=== PATIENT | female | born 1995 | race Caucasian/White ===

== ENCOUNTER 2022-02-20 11:59 | Emergency (ER) | payer OTHER, SELFPAY ==
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
--- NOTE | ~2022-02-20 | XR_ITS ---
EXAMINATION: XR LUMBOSACRAL SPINE CLINICAL INFORMATION: Pain COMPARISON: None TECHNIQUE: Three views of the lumbosacral spine. FINDINGS: The vertebral bodies and posterior elements are normal. The disc spaces are preserved and the vertebral alignment is normal. The paraspinal soft tissues are normal. XR/XR lumbar spine 2-3V IMPRESSION: No acute osseous changes to explain patient's pain symptoms.
[2022-02-20 12:06] VITALS: BP 168/89; PULSE 111; RESP 18; TEMP 36.6; O2SAT 98; BMI 51.1
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
[2022-02-20] MEDS: Acetaminophen 325 MG TABLET 975 MG PO (12:52)
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
[2022-02-20 14:38] VITALS: BP 155/98; PULSE 82; RESP 18; TEMP 36.6; O2SAT 99
== END 2022-02-20 15:07 | disposition home or self-care (01) ==
PROVIDERS: Emergency Provider Emergency Medicine; PCP Hospitalist
DX: S13.4XXA Sprain of ligaments of cervical spine, initial encounter (principal); M54.2 Cervicalgia; G44.309 Post-traumatic headache, unspecified, not intractable; M54.50 Low back pain, unspecified; V43.52XA Car driver injured in collision with other type car in traffic accident, initial encounter; Y93.9 Activity, unspecified; Y92.410 Unspecified street and highway as the place of occurrence of the external cause; Y99.9 Unspecified external cause status; Z79.899 Other long term (current) drug therapy
CPT/HCPCS: 70450; 72100; 72125; 99284

== ENCOUNTER 2022-03-14 13:30 | Inpatient (IN) | payer OTHER, SELFPAY ==
[2022-03-14 13:51] VITALS: BP 000/00; PULSE 0; RESP 16; TEMP -17.7; TEMP 0; O2SAT 0; BMI 48.6
--- NOTE | 2022-03-14 13:57 | ED.PSYCH ---
HPI - Psych General Chief Complaint: Psychiatric Symptoms Stated Complaint: SI/HI,REFUSES VITALS Time Seen by Provider: 03/14/22 13:57 Source: patient Mode of arrival: EMS Limitations: no limitations History of Present Illness HPI Narrative: Patient history of bipolar disorder anxiety ran out of her medication Latuda and Cymbalta which agree patient used that 1 week ago three-month supply now she does not have the medicine and she cannot get it through the insurance. Patient feels irritable agitated since she is suicidal in anger but she says she does not mean it Related Data Home Medications Medication Instructions Recorded Confirmed duloxetine 60 mg capsule,delayed 60 mg PO DAILY 12/14/21 release (Cymbalta) hydroxyzine pamoate 50 mg capsule 50 mg PO BEDTIME 12/14/21 lurasidone 60 mg tablet (Latuda) 60 mg PO DAILY 12/14/21 Previous Rx's Medication Instructions Recorded metformin 500 mg tablet 500 mg PO DAILY #90 tab 12/14/21 cyclobenzaprine 10 mg tablet 10 mg PO TID PRN 7 Days #21 tab 02/20/22 naproxen 500 mg tablet 500 mg PO BID PRN 10 Days #20 tab 02/20/22 Allergies Allergy/AdvReac Type Severity Reaction Status Date / Time No Known Allergies Allergy Verified 12/14/21 10:28 Review of Systems Review of Systems: Yes all other systems are reviewed and are negative PMFSH Past Medical History Medical History Anxiety Bipolar 1 disorder Degenerative disc disease, lumbar Degenerative disc disease, thoracic Depression Family History Family History Mother Diabetes Hypothyroid Social History Social History Household Members: Spouse and Children Household Members Other:: sister Housing: House Alcohol intake: never Patient Tobacco Use Status: Former Tobacco user Advance Directives: No Advance Directives Information Provided: No Guardian: No service: No Current occupational status: unemployed Sexual orientation: Straight/Heterosexual Gender identity: Female Physical Exam Vital Signs: Vital Signs: Last Vital Signs Temp 0 F L 03/14/22 13:51 Pulse 0 L 03/14/22 13:51 Resp 16 03/14/22 13:51 BP 000/00 L 03/14/22 13:51 Pulse Ox 0 L 03/14/22 13:51 BMI result Body Mass Index 48.6 Appearance: Alert. Oriented X3. No acute distress. Eyes: No pallor or icterus ENT: Pharynx normal. Oral Mucosa moist Neck: Normal inspection. Neck supple. CVS: Normal heart rate and rhythm. Pulses normal. Respiratory: No respiratory distress. Equal air entry bilateral, no wheezing/rales/rhonchi Abdomen: Soft and nontender. Bowel sounds are present, no mass palpable, no CVA tenderness Skin: Skin warm and dry. Normal skin color. Normal skin turgor. Extremities: No lower extremity edema. No calf tenderness Psych: Anxious denies any suicidal ideation/homicidal feeling judgment fair no hallucinations or delusions Neuro: Oriented X 3. No motor deficit. No sensory deficit.No cerebellar signs , cranial nerves II-XII intact MDM - Psych MDM Narrative Medical decision making narrative: Patient seen by crisis will be admitted to inpatient psych for bipolar disorder and anxiety Lab Data Attestation: I reviewed the patient's lab results. Labs: Lab Results 03/14/22 03/14/22 03/14/22 Range/Units 14:41 14:41 14:41 Urine Color YELLOW Urine Appearance CLEAR Urine pH 6.0 (5.0-8.0) Ur Specific [place] 1.020 (1.005-1.025) Urine Protein NEG (NEG-TRACE) MG/DL Urine Glucose (UA) NEG (NEG) MG/DL Urine Ketones NEG (NEG) MG/DL Urine Blood 1+ H (NEG) Urine Nitrite NEG (NEG) Ur Leukocyte Esterase NEG (NEG) Urine RBC 0-2 (0) /HPF Urine WBC 0-2 (0-4) /HPF Ur Squamous Epith Cells 1+ /LPF Urine Bacteria TRACE /LPF Urine Test NEGATIVE (NEGATIVE) Urine Opiates Screen (Not Detect) Urine Fentanyl Screen (Not Detect) Ur Barbiturates Screen (Not Detect) Ur Phencyclidine Scrn (Not Detect) Ur Amphetamines Screen (Not Detect) U Benzodiazepines Scrn (Not Detect) Urine Cocaine Screen (Not Detect) U Marijuana (THC) Screen (Not Detect) COVID-19 ([place]) Negative (Negative) COVID-19 Clin Com See Note 03/14/22 Range/Units 14:41 Urine Color Urine Appearance Urine pH (5.0-8.0) Ur Specific [place] (1.005-1.025) Urine Protein (NEG-TRACE) MG/DL Urine Glucose (UA) (NEG) MG/DL Urine Ketones (NEG) MG/DL Urine Blood (NEG) Urine Nitrite (NEG) Ur Leukocyte Esterase (NEG) Urine RBC (0) /HPF Urine WBC (0-4) /HPF Ur Squamous Epith Cells /LPF Urine Bacteria /LPF Urine Test (NEGATIVE) Urine Opiates Screen Not Detected (Not Detect) Urine Fentanyl Screen Not Detected (Not Detect) Ur Barbiturates Screen Not Detected (Not Detect) Ur Phencyclidine Scrn Not Detected (Not Detect) Ur Amphetamines Screen Not Detected (Not Detect) U Benzodiazepines Scrn Not Detected (Not Detect) Urine Cocaine Screen Not Detected (Not Detect) U Marijuana (THC) Screen POSITIVE H (Not Detect) COVID-19 ([place]) (Negative) COVID-19 Clin Com Discharge Plan Discharge Clinical Impression: Bipolar 1 disorder, Anxiety Patient Disposition: Still a Patient Prescriptions: No Action naproxen 500 mg tablet 500 mg PO BID PRN (Reason: pain) 10 Days Qty: 20 0RF cyclobenzaprine 10 mg tablet 10 mg PO TID PRN (Reason: muscle spasm) 7 Days Qty: 21 0RF Rx Instructions: side effect is drowsiness. Do not take at work or while driving. Latuda 60 mg tablet 60 mg PO DAILY 0RF Rx Instructions: must administer with food (at least 350 calories) duloxetine [Cymbalta] 60 mg capsule,delayed release(DR/EC) 60 mg PO DAILY 0RF hydroxyzine pamoate 50 mg capsule 50 mg PO BEDTIME 0RF Label Comments: 50 mg or 100 mg prn metformin 500 mg tablet 500 mg PO DAILY Qty: 90 0RF
[2022-03-14 14:57] LABS: Appearance Urine CLEAR; Color Urine YELLOW; Glucose Urine UA NEG (NEG); Leukocyte Esterase Urine NEG (NEG); Nitrite Urine NEG (NEG); UACC Culture Trigger NO; Urine Blood 1+ (NEG); Urine Ketones NEG (NEG); Urine Protein NEG (NEG-TRACE)
[2022-03-14 14:58] LABS: UPreg QC Valid YES; Urine Pregnancy NEGATIVE (NEGATIVE)
[2022-03-14 15:04] LABS: Amphetamine Screen Urine Not Detected (Not Detect); Barbiturates, Urine Not Detected (Not Detect); Benzodiazepines Screen Urine Not Detected (Not Detect); Cannabinoid Screen Urine POSITIVE (Not Detect); Cocaine Screen Urine Not Detected (Not Detect); Fentanyl, urine Not Detected (Not Detect); Opiate Screen Urine Not Detected (Not Detect); Phencyclidine Screen Urine Not Detected (Not Detect)
[2022-03-14 15:05] LABS: Bacteria Urine TRACE /LPF; Squamous Epithelial Cell Urine 1+ /LPF
[2022-03-14 15:06] LABS: RBC Urine 0-2 /HPF (0); WBC Urine 0-2 /HPF (0-4)
[2022-03-14 15:09] LABS: COVID-19 Test Negative (Negative)
[2022-03-14] MEDS: LORazepam 1 MG TABLET PO ×2 (19:39→23:49)
--- NOTE | 2022-03-14 19:44 | PC.NURSE ---
Pt alert and oriented x4. Pt noted to be refusing most of care. Pt educated by multiple RN's and case management about going to POD and needing to change clothes, after much reluctancy pt has agreed to global climate change analyst to POD. Pt noted to be hyperventilating and cry, noted to be very anxious. Pt received PO meds and tolerated well. Pt refusing vital signs to be done. No IV. Report given to ALYSSA Shaffer.
--- NOTE | 2022-03-14 20:45 | MHC.CARE ---
CARE Team has filed both oral and written 51A.
[2022-03-14 23:42] VITALS: BP 148/101; PULSE 91; RESP 18; TEMP 36.7; O2SAT 97
[2022-03-14] MEDS: Acetaminophen 325 MG TABLET 650 MG PO (23:49)
[2022-03-15] MEDS: hydrOXYzine HCL 50 MG TABLET PO ×3 (00:07→21:28)
--- NOTE | 2022-03-15 06:29 | PC.NURSE ---
Patient slept through the night, no distress observed/reported, patient was tearful until 007, responded well to Tylenol 650 mg at 2349, Ativan 1 mg po at 2349, and hydroxyzine 50 mg at 0007, patient was assessed by care team, disposition is section 12 inpatient bed search, patient reported she has been going through a lot, no being able refill her medication, VSS, behavior non concerning at this time, medication compliant, MAR updated, will continue to monitor.
--- NOTE | 2022-03-15 07:11 | PC.NURSE ---
patient appears to remain asleep at present respirations are even and unlabored patient appears in no distress
--- NOTE | 2022-03-15 09:29 | PC.NURSE ---
patient reported to t/w taking cymbalta and latuda in evening, reported to pharmacy and they are adjusting to clients regular times (evening) accordingly.
--- NOTE | 2022-03-15 09:52 | PC.NURSE ---
patient seems tearful after hearing about inpatient visit i just want my kid . asked client about t/w pursuing a prn medication. offered warm blanket also.
--- NOTE | 2022-03-15 10:05 | PC.NURSE ---
offered client prn medication again and she declined, continues crying.
--- NOTE | 2022-03-15 10:40 | PC.NURSE ---
clients Luisito calls and asked client consent to speak to person, patient declined so t/w told person i can neithjer confirm nor deny that patient is here-sorry i cant provide additional information .
--- NOTE | 2022-03-15 10:52 | PC.NURSE ---
client continued crying seemingly loudly, and let out a loud one second yell. client redirected about how her behavior effects other persons. client advised to take ordered medicine, will attempt to administer now.
[2022-03-15 16:00] LABS: MANUAL DIFF FLAG NO
[2022-03-15 16:10] LABS: Basophils Percent Auto 0.2 % (0-2); Eosinophils Absolute Auto 0.2 X10*3/uL (0.0-0.4); Eosinophils Percent Auto 1.5 % (0-4); Hemoglobin 13.1 g/dl (12.0-16.0); Imm Gran Abs Auto 0.04 X10*3/uL (0.00-0.03); Imm Gran Pct Auto 0.4 % (0.0-0.4); Lymphocytes Absolute Auto 3.1 X10*3/uL (1.2-4.9); Lymphocytes Percent Auto 30.2 % (20-40); Mean Corpuscular HGB Conc 31.2 g/dl (31.0-35.0); Mean Corpuscular Hemoglobin 24.7 pg (27.0-33.0); Mean Corpuscular Volume 79.1 fL (80.0-98.0); Mean Platelet Volume 8.8 fL (9.4-12.3); Monocytes Absolute Auto 0.6 X10*3/uL (0.1-1.2); Monocytes Percent Auto 6.1 % (2-11); Neutrophils Absolute Auto 6.2 x10*3/uL (2.0-8.3); Neutrophils Percent Auto 61.6 % (45-73); Platelet Count 424 X10*3/uL (160-400); Red Blood Count 5.31 X10*6/uL (4.20-5.50); Red Cell Distribution Width 15.9 % (11.0-16.0); White Blood Count 10.1 X10*3/uL (4.8-10.8)
[2022-03-15 16:20] LABS: Alanine Aminotransferase 38 U/L (0-31); Albumin Level 4.3 g/dL (3.5-5.0); Alkaline Phosphatase 71 U/L (39-117); Anion Gap 13 (12-20); Aspartate Amino Transferase 36 U/L (5-31); Bilirubin Total 0.6 mg/dL (0.0-1.0); Blood Urea Nitrogen 11 mg/dL (9-16); Calcium 9.7 mg/dL (8.4-10.2); Carbon Dioxide 24 mmol/L (22-29); Chloride 106 mmol/L (96-108); Creatinine Clr Calc Pharmacy 155.2; Estimated Glomerular Filt Rate > 60; Glucose Fasting 102 mg/dL (60-99); Potassium 4.3 mmol/L (3.3-5.1); Sodium 139 mmol/L (135-145); Total Protein 7.6 g/dL (6.5-8.0)
[2022-03-15] MEDS: hydrOXYzine HCL 25 MG TABLET PO (16:54)
[2022-03-15 17:06] VITALS: BP 178/106; PULSE 105; RESP 18; O2SAT 97
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
[2022-03-15] MEDS: Acetaminophen 325 MG TABLET 650 MG PO (19:38)
[2022-03-15] MEDS: Lurasidone HCl 20 MG TABLET 60 MG PO (19:39)
[2022-03-15 21:22] VITALS: BP 137/90; PULSE 97; TEMP 36.6; O2SAT 93
[2022-03-15] MEDS: Nicotine Polacrilex 2 MG GUM BUCCAL (21:28)
[2022-03-16] MEDS: hydrOXYzine HCL 25 MG TABLET PO (03:03)
[2022-03-16 08:35] VITALS: BP 133/86; PULSE 73; RESP 17; TEMP 36.3; O2SAT 100
[2022-03-16 09:34] LABS: Estimated Average Glucose 108 mg/dL; Hemoglobin A1c % 5.4 %
[2022-03-16 09:43] LABS: Alanine Aminotransferase 34 U/L (0-31); Alkaline Phosphatase 63 U/L (39-117); Anion Gap 12 (12-20); Aspartate Amino Transferase 27 U/L (5-31); Bilirubin Total 0.5 mg/dL (0.0-1.0); Blood Urea Nitrogen 15 mg/dL (9-16); Calcium 9.5 mg/dL (8.4-10.2); Carbon Dioxide 26 mmol/L (22-29); Chloride 105 mmol/L (96-108); Cholesterol 202 mg/dL; Creatinine Clr Calc Pharmacy 147.7; Estimated Glomerular Filt Rate > 60; Glucose Fasting 104 mg/dL (60-99); HDL Cholesterol 46 mg/dL; LDL Cholesterol Calculated 140 mg/dl; Potassium 4.4 mmol/L (3.3-5.1); Sodium 139 mmol/L (135-145); Total Protein 7.2 g/dL (6.5-8.0); Triglycerides 83 mg/dL
[2022-03-16 10:02] LABS: Thyroid Stimulating Hormone 3.49 uIU/mL (0.32-4.0)
[2022-03-16] MEDS: Nicotine 21 MG PATCH.TD24 TRANSDERMA (11:56)
[2022-03-16] MEDS: hydrOXYzine HCL 50 MG TABLET PO (14:13)
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
[2022-03-16] MEDS: Nicotine Polacrilex 2 MG GUM BUCCAL ×2 (16:44→18:45)
[2022-03-16] MEDS: DULoxetine HCl 30 MG CAPSULE.DR 90 MG PO (17:59)
[2022-03-16] MEDS: Lurasidone HCl 20 MG TABLET 60 MG PO (17:59)
[2022-03-16 20:50] VITALS: BP 160/93; PULSE 103; RESP 20; TEMP 36.6; O2SAT 98
[2022-03-16] MEDS: hydrOXYzine HCL 50 MG TABLET 100 MG PO (20:52)
[2022-03-16] MEDS: Fluticasone Propionate 100 MCG BLST.W.DEV 1 PUFF INHALE (21:00)
[2022-03-16] MEDS: cloNIDine HCL 0.1 MG TABLET PO (21:07)
[2022-03-16] MEDS: Loperamide HCl 2 MG CAPSULE PO (21:20)
[2022-03-16 22:48] VITALS: BP 147/93; PULSE 97
[2022-03-17] VITALS: BP 174/92; BP 178/108; PULSE 108; PULSE 99; O2SAT 99
[2022-03-17] MEDS: LORazepam 1 MG TABLET 2 MG PO (00:39)
[2022-03-17] MEDS: amLODIPine Besylate 5 MG TABLET PO ×2 (00:39→08:14)
--- NOTE | 2022-03-17 00:40 | PC.NURSE ---
elevated BP-Dr. Adams notified of 0000 bp readings 174/92, 178/108. see VS sheet. Hx of being on labetalol 100mg po bid during last . Amlodipine 5mg, ativan 2mg given.
[2022-03-17 07:00] VITALS: BMI 47.7
[2022-03-17 07:12] VITALS: BP 125/72; PULSE 112
[2022-03-17] MEDS: Fluticasone Propionate 100 MCG BLST.W.DEV 1 PUFF INHALE ×2 (08:14→20:44)
[2022-03-17] MEDS: Nicotine 21 MG PATCH.TD24 TRANSDERMA (08:15)
[2022-03-17 09:33] VITALS: BP 139/87; PULSE 96; RESP 20; TEMP 36.3; O2SAT 98
[2022-03-17] MEDS: Nicotine Polacrilex 2 MG GUM BUCCAL ×3 (09:42→19:14)
--- NOTE | 2022-03-17 14:01 | P.PNPSI_ITS ---
Subjective Subjective Date of Service: 03/17/22 Reason For Visit: mood disorder Interim History: pt states, i woke up this morning and felt like a million bucks. asking for discharge. pt complaining about treatment here, saying it is not helpful, not what she needs. asking to be discharged [facility]. stating others monopolize group time to her detriment. states she needs her own therapist, etc. MD states he will check in with SW re discharge but could not promise anything in particular. states if she is going to be stuck here she is just going to stop taking her medications. MD replies that will not help her get discharged more quickly. states this place is making her suicidal. MD replies that neither will that get her discharged more quickly. MD instructs pt to use the time to practice distress tolerance techniques, a suggestion about which pt is not pleased, devaluing any help she might get from treaters and groups here. per staff, acive, appropriate in groups. BPs volatile. did not sleep after 2 mg ativan. in milieu and interactive. Mental Status Exam Mental Status Exam Narrative: obese, adequately dressed and groomed in street clothes. heavy and ornate make- up. good eye contact. cooperative. no PMA/PMR. speech nml in rate, amount, loudness, tone, latency. thoughts linear and logical without evidence of delusions or paranoia. affect constricted, normo-intense, non-labile. mood i woke up this morning and felt like a million bucks juxtaposed with this place is making me want to kill myself. no HI/AVH expressed. Diagnostics Vital Signs (24Hr): Vital Signs - 24 hr 03/16/22 20:50 03/16/22 22:48 03/17/22 00:00 Temperature 97.8 F Pulse Rate 103 H 97 108 H Respiratory Rate 20 Blood Pressure 160/93 H 147/93 H 178/108 H Pulse Oximetry 98 99 03/17/22 07:12 03/17/22 09:33 Temperature 97.3 F Pulse Rate 112 H 96 Respiratory Rate 20 Blood Pressure 125/72 139/87 Pulse Oximetry 98 BMI result Body Mass Index 48.6 Labs Results: 03/15/22 15:52 03/16/22 08:40 Labs: Laboratory Results - last 48 hr 03/15/22 03/15/22 03/16/22 15:52 15:52 08:39 WBC 10.1 RBC 5.31 Hgb 13.1 Hct 42.0 MCV 79.1 L MCH 24.7 L MCHC 31.2 RDW 15.9 Plt Count 424 H MPV 8.8 L Immature Gran % (Auto) 0.4 Neut % (Auto) 61.6 Lymph % (Auto) 30.2 [place] % (Auto) 6.1 Eos % (Auto) 1.5 Baso % (Auto) 0.2 Lymph # (Auto) 3.1 [place] # (Auto) 0.6 Eos # (Auto) 0.2 Baso # (Auto) 0.0 Abs Immat Gran (auto) 0.04 H Absolute Neuts (auto) 6.2 Absolute Nucleated RBC 0.000 Nucleated RBC % (auto) 0.0 Sodium 139 Potassium 4.3 Chloride 106 Carbon Dioxide 24 Anion Gap 13 BUN 11 Creatinine 0.79 Estim Creat Clear Calc 155.2 Estimated GFR > 60 Fasting Glucose 102 H Estimat Average Glucose 108 Hemoglobin A1c % 5.4 Calcium 9.7 Total Bilirubin 0.6 AST 36 H ALT 38 H Alkaline Phosphatase 71 Total Protein 7.6 Albumin 4.3 Triglycerides Cholesterol LDL Cholesterol, Calc HDL Cholesterol TSH 03/16/22 08:40 WBC RBC Hgb Hct MCV MCH MCHC RDW Plt Count MPV Immature Gran % (Auto) Neut % (Auto) Lymph % (Auto) [place] % (Auto) Eos % (Auto) Baso % (Auto) Lymph # (Auto) [place] # (Auto) Eos # (Auto) Baso # (Auto) Abs Immat Gran (auto) Absolute Neuts (auto) Absolute Nucleated RBC Nucleated RBC % (auto) Sodium 139 Potassium 4.4 Chloride 105 Carbon Dioxide 26 Anion Gap 12 BUN 15 Creatinine 0.83 Estim Creat Clear Calc 147.7 Estimated GFR > 60 Fasting Glucose 104 H Estimat Average Glucose Hemoglobin A1c % Calcium 9.5 Total Bilirubin 0.5 AST 27 ALT 34 H Alkaline Phosphatase 63 Total Protein 7.2 Albumin 4.0 Triglycerides 83 Cholesterol 202 LDL Cholesterol, Calc 140 HDL Cholesterol 46 TSH 3.49 Medications Medications Current Medications Acetaminophen (Acetaminophen 325 Mg Tablet) 650 mg PO Q6H PRN PRN Reason: Headache/Pain Mild Scale (1-3) Last Admin: 03/15/22 19:38 Dose: 650 mg Documented by: Al Hydroxide/Mg Hydroxide (Magnesium Hydrox/Alum Hydrox 30 Ml Oral.Susp) 30 ml PO Q6H PRN PRN Reason: Heartburn/Nausea Albuterol Sulfate (Albuterol Sulfate 90 Mcg 8 Gm Inhaler) 2 puff INHALE Q4H PRN PRN Reason: Shortness of Breath Amlodipine Besylate (Amlodipine Besylate 10 Mg Tablet) 10 mg PO DAILY [facility]; Protocol Clonidine HCl (Clonidine Hcl 0.1 Mg Tablet) 0.1 mg PO Q4H PRN; Protocol PRN Reason: Hypertension Last Admin: 03/16/22 21:07 Dose: 0.1 mg Documented by: Duloxetine HCl (Duloxetine Hcl 30 Mg Capsule.Dr) 90 mg PO DAILY@1700 [facility] Last Admin: 03/16/22 17:59 Dose: 90 mg Documented by: Fluticasone Propionate (Fluticasone Propionate 100 Mcg Blst.W.Dev) 1 puff INHALE RBID [facility] Last Admin: 03/17/22 08:14 Dose: 1 puff Documented by: Hydroxyzine HCl (Hydroxyzine Hcl 25 Mg Tablet) 25 mg PO BEDTIME PRN PRN Reason: Anxiety Last Admin: 03/16/22 03:03 Dose: 25 mg Documented by: Hydroxyzine HCl (Hydroxyzine Hcl 50 Mg Tablet) 100 mg PO BEDTIME [facility] Last Admin: 03/16/22 20:52 Dose: 100 mg Documented by: Hydroxyzine HCl (Hydroxyzine Hcl 50 Mg Tablet) 50 mg PO Q6H PRN PRN Reason: Anxiety Last Admin: 03/16/22 14:13 Dose: 50 mg Documented by: Loperamide HCl (Loperamide Hcl 2 Mg Capsule) 2 mg PO Q4H PRN PRN Reason: Diarrhea Last Admin: 03/16/22 21:20 Dose: 2 mg Documented by: Lurasidone HCl (Lurasidone Hcl 20 Mg Tablet) 60 mg PO DAILY@1700 [facility] Last Admin: 03/16/22 17:59 Dose: 60 mg Documented by: Magnesium Hydroxide (Milk Of Magnesia 30 Ml Oral.Susp) 30 ml PO DAILY PRN PRN Reason: Constipation Nicotine (Nicotine 21 Mg Patch.Td24) 21 mg TRANSDERMA DAILY PRN PRN Reason: smoking cessation Last Admin: 03/17/22 08:15 Dose: 21 mg Documented by: Nicotine Polacrilex (Nicotine Polacrilex 2 Mg Gum) 2 mg BUCCAL Q2H PRN PRN Reason: Nicotine Cravings Last Admin: 03/17/22 09:42 Dose: 2 mg Documented by: Trazodone HCl (Trazodone Hcl 50 Mg Tablet) 50 mg PO BEDTIME PRN PRN Reason: Insomnia Allergies Allergies Allergy/AdvReac Type Severity Reaction Status Date / Time No Known Allergies Allergy Verified 12/14/21 10:28 Assessment & Plan Assessment & Plan (1) Unspecified mood [affective] disorder: Status: Acute Code(s): F39 - Unspecified mood [affective] disorder Plan restarted outpt regimen. increased cymbalta from 60 mg dailty to 90 mg daily at pt request. norvasc 10 mg daily started for HTN. arrange for therapy and med provider. discharge tomorrow or monday.. I spent ___35___ minutes with the patient and/or on the patient floor today, greater than?50% of which was spent counseling/coordinating care. Reason for contiued inpatient stay Substantial Risk for: inability to function and rapid decompensation
[2022-03-17] MEDS: Lurasidone HCl 20 MG TABLET 60 MG PO (18:04)
[2022-03-17] MEDS: DULoxetine HCl 30 MG CAPSULE.DR 90 MG PO (18:04)
[2022-03-17] MEDS: hydrOXYzine HCL 50 MG TABLET PO (18:06)
[2022-03-17 20:42] VITALS: BP 122/71; PULSE 92; RESP 18; TEMP 36.7; O2SAT 97
[2022-03-17] MEDS: cloNIDine HCL 0.1 MG TABLET PO (20:42)
[2022-03-17] MEDS: traZODone HCL 50 MG TABLET PO (20:42)
[2022-03-17] MEDS: Acetaminophen 325 MG TABLET 650 MG PO (20:42)
[2022-03-17] MEDS: hydrOXYzine HCL 50 MG TABLET 100 MG PO (20:43)
[2022-03-18] MEDS: Nicotine 21 MG PATCH.TD24 TRANSDERMA (09:01)
[2022-03-18] MEDS: amLODIPine Besylate 10 MG TABLET PO (09:13)
[2022-03-18] MEDS: Fluticasone Propionate 100 MCG BLST.W.DEV 1 PUFF INHALE (09:13)
[2022-03-18 09:26] VITALS: BP 139/81; PULSE 76; RESP 20; TEMP 36.3; O2SAT 99
[2022-03-18] MEDS: Nicotine Polacrilex 2 MG GUM BUCCAL (09:53)
--- NOTE | 2022-03-18 10:37 | P.DS_ITS ---
DS: Providers Provider Date of admission: 03/15/22 16:10 Primary care physician: Debra Walden NP DS: Diagnosis Discharge Diagnosis (1) Unspecified mood [affective] disorder: Status: Acute DS: Medications Discharge Medications Home Medications: Previous Rx's Medication Instructions Recorded cyclobenzaprine 10 mg tablet 10 mg PO TID PRN 7 Days #21 tab 02/20/22 naproxen 500 mg tablet 500 mg PO BID PRN 10 Days #20 tab 02/20/22 albuterol sulfate 90 mcg/actuation 2 puff INHALATION Q4H PRN 30 Days 03/18/22 aerosol inhaler (Ventolin HFA) #1 inhaler amlodipine 10 mg tablet 10 mg PO DAILY 30 Days #30 tab 03/18/22 duloxetine 30 mg capsule,delayed 90 mg PO DAILY@1700 30 Days #90 cap 03/18/22 release fluticasone propionate 100 1 puff INHALATION RBID 30 Days #1 03/18/22 mcg/actuation blister powder for inhaler inhalation (Flovent Diskus) hydroxyzine HCl 25 mg tablet 25 mg PO BID PRN 30 Days #60 tab 03/18/22 hydroxyzine pamoate 50 mg capsule 100 mg PO BEDTIME 30 Days #60 cap 03/18/22 lurasidone 60 mg tablet (Latuda) 60 mg PO DAILY 30 Days #30 tab 03/18/22 Data Data Completed and Pending Completed studies during hospitalization [Text1]: 03/14/22 03/14/22 03/14/22 14:41 14:41 14:41 WBC RBC Hgb Hct MCV MCH MCHC RDW Plt Count MPV Immature Gran % (Auto) Neut % (Auto) Lymph % (Auto) Stone % (Auto) Eos % (Auto) Baso % (Auto) Lymph # (Auto) [place] # (Auto) Eos # (Auto) Baso # (Auto) Abs Immat Gran (auto) Absolute Neuts (auto) Absolute Nucleated RBC Nucleated RBC % (auto) Sodium Potassium Chloride Carbon Dioxide Anion Gap BUN Creatinine Estim Creat Clear Calc Estimated GFR Fasting Glucose Estimat Average Glucose Hemoglobin A1c % Calcium Total Bilirubin AST ALT Alkaline Phosphatase Total Protein Albumin Triglycerides Cholesterol LDL Cholesterol, Calc HDL Cholesterol TSH Urine Color YELLOW Urine Appearance CLEAR Urine pH 6.0 Ur Specific [place] 1.020 Urine Protein NEG Urine Glucose (UA) NEG Urine Ketones NEG Urine Blood 1+ H Urine Nitrite NEG Ur Leukocyte Esterase NEG Urine RBC 0-2 Urine WBC 0-2 Ur Squamous Epith Cells 1+ Urine Bacteria TRACE Urine Test NEGATIVE Urine Opiates Screen Urine Fentanyl Screen Ur Barbiturates Screen Ur Phencyclidine Scrn Ur Amphetamines Screen U Benzodiazepines Scrn Urine Cocaine Screen U Marijuana (THC) Screen COVID-19 ([place]) Negative COVID-19 Clin Com See Note 03/14/22 03/15/22 03/15/22 14:41 15:52 15:52 WBC 10.1 RBC 5.31 Hgb 13.1 Hct 42.0 MCV 79.1 L MCH 24.7 L MCHC 31.2 RDW 15.9 Plt Count 424 H MPV 8.8 L Immature Gran % (Auto) 0.4 Neut % (Auto) 61.6 Lymph % (Auto) 30.2 [place] % (Auto) 6.1 Eos % (Auto) 1.5 Baso % (Auto) 0.2 Lymph # (Auto) 3.1 [place] # (Auto) 0.6 Eos # (Auto) 0.2 Baso # (Auto) 0.0 Abs Immat Gran (auto) 0.04 H Absolute Neuts (auto) 6.2 Absolute Nucleated RBC 0.000 Nucleated RBC % (auto) 0.0 Sodium 139 Potassium 4.3 Chloride 106 Carbon Dioxide 24 Anion Gap 13 BUN 11 Creatinine 0.79 Estim Creat Clear Calc 155.2 Estimated GFR > 60 Fasting Glucose 102 H Estimat Average Glucose Hemoglobin A1c % Calcium 9.7 Total Bilirubin 0.6 AST 36 H ALT 38 H Alkaline Phosphatase 71 Total Protein 7.6 Albumin 4.3 Triglycerides Cholesterol LDL Cholesterol, Calc HDL Cholesterol TSH Urine Color Urine Appearance Urine pH Ur Specific [place] Urine Protein Urine Glucose (UA) Urine Ketones Urine Blood Urine Nitrite Ur Leukocyte Esterase Urine RBC Urine WBC Ur Squamous Epith Cells Urine Bacteria Urine Test Urine Opiates Screen Not Detected Urine Fentanyl Screen Not Detected Ur Barbiturates Screen Not Detected Ur Phencyclidine Scrn Not Detected Ur Amphetamines Screen Not Detected U Benzodiazepines Scrn Not Detected Urine Cocaine Screen Not Detected U Marijuana (THC) Screen POSITIVE H COVID-19 ([place]) COVID-19 Clin Com 03/16/22 03/16/22 08:39 08:40 WBC RBC Hgb Hct MCV MCH MCHC RDW Plt Count MPV Immature Gran % (Auto) Neut % (Auto) Lymph % (Auto) Stone % (Auto) Eos % (Auto) Baso % (Auto) Lymph # (Auto) [place] # (Auto) Eos # (Auto) Baso # (Auto) Abs Immat Gran (auto) Absolute Neuts (auto) Absolute Nucleated RBC Nucleated RBC % (auto) Sodium 139 Potassium 4.4 Chloride 105 Carbon Dioxide 26 Anion Gap 12 BUN 15 Creatinine 0.83 Estim Creat Clear Calc 147.7 Estimated GFR > 60 Fasting Glucose 104 H Estimat Average Glucose 108 Hemoglobin A1c % 5.4 Calcium 9.5 Total Bilirubin 0.5 AST 27 ALT 34 H Alkaline Phosphatase 63 Total Protein 7.2 Albumin 4.0 Triglycerides 83 Cholesterol 202 LDL Cholesterol, Calc 140 HDL Cholesterol 46 TSH 3.49 Urine Color Urine Appearance Urine pH Ur Specific [place] Urine Protein Urine Glucose (UA) Urine Ketones Urine Blood Urine Nitrite Ur Leukocyte Esterase Urine RBC Urine WBC Ur Squamous Epith Cells Urine Bacteria Urine Test Urine Opiates Screen Urine Fentanyl Screen Ur Barbiturates Screen Ur Phencyclidine Scrn Ur Amphetamines Screen U Benzodiazepines Scrn Urine Cocaine Screen U Marijuana (THC) Screen COVID-19 ([place]) COVID-19 Clin Com DS: Summary Time Spent with Patient Time attestation: Total time spent providing and/or coordinating discharge services: Discharge Plan Discharge Patient Disposition: Home, Self-Care Discharge Diagnosis: Mood Disorder NOS Referrals: Therapy and Psychiatry [Other] - 1 Week (You can also look on psychology today online and see if anyone on there is taking new patients and also accepts your insurance. ) Debra Walden NP [Primary Care Provider] - 03/28/22 9:00 am Discharge Medications: New amlodipine 10 mg Tablet 10 mg PO DAILY 30 Days Qty: 30 0RF Protocol: Hold for SBP< HOLD for SBP < : 90 Flovent Diskus 100 mcg/actuation Blister With Device 1 puff inhalation RBID 30 Days Qty: 1 0RF albuterol sulfate [Ventolin HFA] 90 mcg/actuation Hfa Aerosol Inhaler 2 puff inhalation Q4H PRN (Reason: Shortness Of Breath) 30 Days Qty: 1 0RF duloxetine 30 mg Capsule,Delayed Release(Dr/Ec) 90 mg PO DAILY@1700 30 Days Qty: 90 0RF hydroxyzine HCl 25 mg Tablet 25 mg PO BID PRN (Reason: Anxiety) 30 Days Qty: 60 0RF Continued naproxen 500 mg tablet 500 mg PO BID PRN (Reason: pain) 10 Days Qty: 20 0RF cyclobenzaprine 10 mg tablet 10 mg PO TID PRN (Reason: muscle spasm) 7 Days Qty: 21 0RF Rx Instructions: side effect is drowsiness. Do not take at work or while driving. Latuda 60 mg tablet 60 mg PO DAILY 30 Days Qty: 30 0RF Rx Instructions: must administer with food (at least 350 calories) Changed hydroxyzine pamoate 50 mg capsule 100 mg PO BEDTIME 30 Days Qty: 60 0RF Label Comments: 50 mg or 100 mg prn Discontinued duloxetine [Cymbalta] 60 mg capsule,delayed release(DR/EC) 60 mg PO DAILY 0RF metformin 500 mg tablet 500 mg PO DAILY Qty: 90 0RF Discharge Orders: Discharge Order (Routine); Ordered 03/18/22 Ordered By: Derek Adams Diet: advance to usual diet Activity on Discharge: As tolerated Stand Alone Forms: Patient Portal Discharge page Care Plan Goals: maintain safe and independent living in the outpatient treatment setting Health Concerns: tobacco use disorder Plan of Treatment: take medications as prescribed, establish outpatient providers Assessment: not at imminent risk of harm to self or others
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
--- NOTE | 2022-03-18 11:57 | PC.NURSE ---
Patient alert, oriented x3. Reports she is very happy to be discharged, denies SI/HI, denies AH/VH. Reviewed belongings, discharge paperwork with patient. Questions and concerns addressed at the time of discharge, no further questions or concerns, affect even.
== END 2022-03-18 12:45 | disposition home or self-care (01) | DRG 885 ==
LOC: HO.ED 21:02 → HO.PADLT16 03-15 16:29
PROVIDERS: Nurse Practitioner Family; Social Worker; Admitting Provider Psychiatry & Neurology Psychiatry; Emergency Provider Internal Medicine; PCP Hospitalist; Visit Provider Psychiatry & Neurology Psychiatry
DX: F39 Unspecified mood [affective] disorder (principal); R45.851 Suicidal ideations; Z68.42 Body mass index [BMI] 45.0-49.9, adult; M51.35 Other intervertebral disc degeneration, thoracolumbar region; E66.9 Obesity, unspecified; Z20.822 Contact with and (suspected) exposure to COVID-19; R45.850 Homicidal ideations; Z91.52 Personal history of nonsuicidal self-harm; Z91.14 Patient's other noncompliance with medication regimen; Z79.51 Long term (current) use of inhaled steroids; Z79.899 Other long term (current) drug therapy
CPT/HCPCS: 36415; 80053; 80061; 80307; 81001; 81025; 83036; 84443; 85025; 87635; 99285

== ENCOUNTER → 2022-06-16 15:34 | Outpatient (BNVA) | payer OTHER, SELFPAY | PROVIDERS: PCP Hospitalist; Visit Provider Physician Assistant Surgical | DX: E66.01 Morbid (severe) obesity due to excess calories (principal); Z68.43 Body mass index [BMI] 50.0-59.9, adult; Z71.3 Dietary counseling and surveillance | CPT/HCPCS: 99202 ==

== ENCOUNTER 2022-06-30 14:23 | Outpatient (REF) | payer OTHER, SELFPAY ==
[2022-06-30 15:11] LABS: Influenza A PCR NEGATIVE (Negative); Influenza B PCR NEGATIVE (Negative); Resp Syncy Virus RNA Qual PCR NEGATIVE (Negative); SARS COV2 PCR INHOUSE POSITIVE (Negative)
== END 2022-06-30 14:24 | disposition home or self-care (01) ==
LOC: HO.LNP 14:23
PROVIDERS: Visit Provider Internal Medicine
DX: R09.89 Other specified symptoms and signs involving the circulatory and respiratory systems (principal); Z20.822 Contact with and (suspected) exposure to COVID-19
CPT/HCPCS: 0241U

== ENCOUNTER 2022-08-11 14:04 | Outpatient (REF) | payer OTHER, SELFPAY ==
[2022-08-11 14:53] LABS: Influenza A PCR NEGATIVE (Negative); Influenza B PCR NEGATIVE (Negative); Resp Syncy Virus RNA Qual PCR NEGATIVE (Negative); SARS COV2 PCR INHOUSE NEGATIVE (Negative)
== END 2022-08-11 14:05 | disposition home or self-care (01) ==
LOC: HO.LNP 14:04
DX: R51.9 Headache, unspecified (principal); Z20.822 Contact with and (suspected) exposure to COVID-19
CPT/HCPCS: 0241U

== ENCOUNTER 2023-06-22 08:47 | Outpatient (AMB) | payer OTHER, MEDICAID, SELFPAY ==
[2023-06-22 08:50] VITALS: BP 140/80; PULSE 83; O2SAT 99; BMI 52.2
--- NOTE | 2023-06-22 08:50 | A.OFFPC_ITS ---
Vital Signs 06/22/23 08:50 Height 5 ft 4 in Weight 304 lb BMI 52.2 BP 140/80 H Blood Pressure Location Lt brachial Position Sitting Pulse 83 Pulse Source Pulse Oximeter Pulse Oximetry (%) 99 Oxygen Delivery Method Room Air Intake Visit Reasons: Flu vaccine, Discuss weight loss program Intake Note: Patient is here to discuss medication for weight loss. Allergies bees Allergy (Mild, Uncoded 06/22/23 08:54) Swelling Tobacco use date assessed: 06/22/23 Dental Screening Dental Screen Date: 06/22/23 Did you have a dental visit in the last 12 months?: No Did you have a dental problem in the last 6 months where you did not have access to dental care?: No Was dental information given to patient?: No HPI Flu vaccine, Discuss weight loss program HPI Details 28 y/o female presents to discuss flu vaccine and her weight loss program. She reports she had started the first steps of her weight management program. She has trialed a diet/exercise program but has eventually stopped losing weight. She notes the only time she had lost a significant amount of weight was years ago when she had gone to the gym daily for 4 hours a day, which is not feasible for her at this moment. She states she would like to trial a medication for her weight. She reports hx of gestational diabetes. She reports blood sugars have been running high. Pt has questions about the flu vaccine today. HPI Comments History of Present Illness Details Documentation assistance for Phuc Grewal MD, was provided by Tj Abernathy,? President [employer] on 06/22/2023 9:16 AM EST. I, Dr. Grewal, have read, observed, and verified documentation.? PFS Medical History Anxiety Bipolar 1 disorder Degenerative disc disease, lumbar Degenerative disc disease, thoracic Depression Headache Surgical History History of ear surgery History of wisdom tooth extraction Family History Mother Hypothyroid Gabriela's disease Arthritis Father No problems noted. Brother No problems noted. Sister No problems noted. Sister Bipolar 1 disorder Son No problems noted. Daughter No problems noted. Other Mental health disorder Substance use disorder Social History Household Members: Spouse, Family and Children Household Members Other:: sister Housing: House Do you presently have visiting nurse or other home services: No Alcohol intake: current Alcohol intake frequency: holidays/special occasions only Patient Tobacco Use Status: Former Tobacco user Tobacco use type: Cigarette e-Cigarette/Vaping Use: Currently Using Second Hand Smoke Exposure: Yes Substance Use Type: Marijuana service: No Current occupational status: unemployed Current occupational exposures/hazards: No Sexual orientation: Straight/Heterosexual Gender identity: Female Cognitive needs: No Hearing needs: No Vision needs: No Questionnaire Thrive Questionnaire Date Thrive assessed: 03/28/22 MARY ALICE-7 AMB Questionnaire MARY ALICE-7 Date MARY ALICE - 7 assessed: 06/02/22 Source: Developed by Drs. Tato Jenkins, Shira Barron, Tacho Khalil and colleagues, with an educational zheng from [employer]. Physical exam (Primary Care) Vital Signs: Last Vital Signs Pulse 83 06/22/23 08:50 BP 140/80 H 06/22/23 08:50 Pulse Ox 99 06/22/23 08:50 Oxygen Delivery Method Room Air 06/22/23 08:50 BMI result Body Mass Index 52.2 Tobacco/Smoking Status: Tobacco use Status Tobacco use date assessed 06/22/23 06/22/23 08:59 Patient Tobacco Use Status Former Tobacco user 06/22/23 08:59 Tobacco use type Cigarette 06/22/23 08:59 e-Cigarette/Vaping Use Currently Using 06/22/23 08:59 Thrive Assessment: Date of Thrive Assessment Date Thrive assessed 03/28/22 06/22/23 08:59 Const Nutritional Appearance: obese morbidly obese Assessment and Plan Assessment & Plan (1) Elevated fasting glucose: Code(s): R73.01 - Impaired fasting glucose Plan: History of elevated fasting blood sugars and history of station all diabetes but currently A1c is 5.4% off of metformin for the past few months. A1c in top normal range Given that she has elevated fasting blood sugars and PCOS, will try her Semaglutide. This may also help with weight. (2) Morbid obesity: Code(s): E66.01 - Morbid (severe) obesity due to excess calories Plan: Patient had been interested in the bariatric stop program but she has changed her mind. Starting Semaglutide as above and this may help with weight loss (3) PCOS (polycystic ovarian syndrome): Code(s): E28.2 - Polycystic ovarian syndrome Plan: As above (4) Immunization counseling: Code(s): Z71.85 - Encounter for immunization safety counseling Plan: We do not have current flu shots available. Advised she get her flu shot in late July/early August If her work is insisting she get a flu shot she can check with her pharmacy Coding Level of Care Code Est Pt Level 4 (34294) Diagnoses Elevated fasting glucose R73.01 Morbid obesity E66.01 PCOS (polycystic ovarian syndrome) E28.2 Immunization counseling Z71.85
== END 2023-06-22 09:42 | disposition home or self-care (01) ==
PROVIDERS: PCP Family Medicine; Visit Provider Family Medicine
DX: R73.01 Impaired fasting glucose (principal); E66.01 Morbid (severe) obesity due to excess calories; E28.2 Polycystic ovarian syndrome; Z68.43 Body mass index [BMI] 50.0-59.9, adult; Z71.85 Encounter for immunization safety counseling
CPT/HCPCS: 83036; 99214

== ENCOUNTER 2024-01-09 08:22 | Outpatient (AMB) | payer OTHER, SELFPAY ==
--- NOTE | 2024-01-09 09:04 | AM.OFFWIN_ITS ---
Intake Vital Signs 01/09/24 09:12 Height 5 ft 4 in Weight 301 lb BMI 51.7 BP 126/80 Blood Pressure Location Lt brachial Position Sitting Pulse 108 H Pulse Source Pulse Oximeter Temp 97.6 F Temp Source Temporal Artery Scan Pulse Oximetry (%) 99 Oxygen Delivery Method Room Air Intake Visit Reasons: EP RT Hip pain/Red/Hot~Fever/Diarrhea [id number] Intake Note: pt is here today for hip pain fever diarrhea started yesterday Patient Tobacco Use Status: Former Tobacco user Allergies bees Allergy (Mild, Uncoded 06/22/23 08:54) Swelling Do you need a note to return to daycare/school/sports/work: Yes HPI HPI Comments History of Present Illness Details This is a 28-year-old female with a past medical history bipolar disorder presenting for a painful lesion on her right hip that is red and warm. Patient 1st noted this lesion last night at approximately 10:00 a.m. when she was getting ready for work. Patient reports subjective fevers for the past 2 days and diarrhea for the past 1 day. Patient has been taking Immodium with relief of her diarrhea and her last episode was last night. Patient has not taken any medication for treatment of her pain or fever. Patient denies any injury or trauma to her right hip. [facility] Medical History Headache Degenerative disc disease, lumbar Degenerative disc disease, thoracic Anxiety Depression Bipolar 1 disorder Surgical History History of ear surgery History of wisdom tooth extraction Family History Mother Hypothyroid Gabriela's disease Arthritis Father No problems noted. Brother No problems noted. Sister No problems noted. Sister Bipolar 1 disorder Son No problems noted. Daughter No problems noted. Other Mental health disorder Substance use disorder Social History Household Members: Spouse, Family and Children Household Members Other:: sister Housing: House Do you presently have visiting nurse or other home services: No Alcohol intake: current Alcohol intake frequency: holidays/special occasions only Patient Tobacco Use Status: Former Tobacco user Tobacco use type: Cigarette e-Cigarette/Vaping Use: Currently Using Second Hand Smoke Exposure: Yes Substance Use Type: Marijuana service: No Current occupational status: unemployed Current occupational exposures/hazards: No Sexual orientation: Straight/Heterosexual Gender identity: Female Cognitive needs: No Hearing needs: No Vision needs: No Review of Systems Const All systems reviewed & are unremarkable except as noted in HPI and below Denies body aches, Denies chills, Reports fever(s) (subjective) and Denies weakness Eyes Reports no additional complaints ENT Reports no additional complaints GI Reports diarrhea Denies hematuria, Denies dysuria, Denies urinary incontinence and Denies urinary urgency Skin/Breast Reports change in pigmentation and Reports changing lesions Neuro Reports no additional complaints and Denies weakness Psych Reports no additional complaints Physical Exam Vital Signs: Last Vital Signs Temp 97.6 F 01/09/24 09:12 Pulse 108 H 01/09/24 09:12 BP 126/80 01/09/24 09:12 Pulse Ox 99 01/09/24 09:12 Oxygen Delivery Method Room Air 01/09/24 09:12 BMI result Body Mass Index 51.7 Patient is afebrile; heart rate 88 on examination. Const General: cooperative, healthy appearing, comfortable and no acute distress Nutritional Appearance: overweight Orientation/consciousness: patient oriented x3 Limitations: no limitations Cardio Rate: regular rate (88bpm) Rhythm: regular rhythm GI Inspection: Yes obesity Palpation (GI): Soft to palpation, nontender and no guarding Auscultation: normal bowel sounds Skin Lesions: lesion noted (macular erythema measuring 13cm x 10cm) overlying right lateral hip/pelvis size (13cm x 10cm), borders irregular, color red (warm and tender to touch) and tender Trauma: no lacerations or abrasions Neuro General: patient oriented x3 Extrem Other: ambulating without limitation Psych Appearance: grossly normal Mental Status: mental status grossly normal Insight: Good insight present (Psych) Judgement: Good judgement present (Psych) Results AMB Urinalysis, Automated 2 UA Leukoctes 0 Clarisse/uL Last Edit by AZUCENA Lewis on 01/09/24 10:09 UA Nitrite Negative Last Edit by AZUCENA Lewis on 01/09/24 10:09 UA Urobilinogen 0.2 mg/dL Last Edit by AZUCENA Lewis on 01/09/24 10:09 UA Protein 0 mg/dL Last Edit by AZUCENA Lewis on 01/09/24 10:09 UA pH 5.5 Last Edit by AZUCENA Lewis on 01/09/24 10:09 UA Blood 0 Marvin/uL Last Edit by AZUCENA Lewis on 01/09/24 10:09 UA Specific [place] 1.030 Last Edit by AZUCENA Lewis on 01/09/24 10:09 UA Ketone Negative Last Edit by AZUCENA Lewis on 01/09/24 10:09 UA Bilirubin 0 mg/dL Last Edit by AZUCENA Lewis on 01/09/24 10:09 UA Glucose 0 mg/dL Last Edit by AZUCENA Lewis on 01/09/24 10:09 Results Reviewed Results Reviewed: Urinalysis negative; culture not warranted. Assessment & Plan Assessment & Plan (1) Cellulitis of hip, right: Comment: margins of erythema marked with surgical marker. Code(s): L03.115 - Cellulitis of right lower limb Plan: Doxycycline b.i.d. x7 days. Patient will follow up with urgent care or primary care provider in 2 days for a re-evaluation of this cellulitis. (2) Diarrhea: Comment: Last episode was last night. Code(s): R19.7 - Diarrhea, unspecified Qualifiers: Diarrhea type: unspecified type Qualified Code(s): R19.7 - Diarrhea, unspecified Plan: Continue Immodium only as needed. Increase clear fluids daily. Orders: Orders AMB Urinalysis Automated Today Z13.9 - Encounter for screening, unspecified Medications: New doxycycline hyclate 100 mg PO BID 14 caps 0RF Coding Level of Care Code Est Pt Level 3 (00210) Diagnoses Cellulitis of hip, right L03.115 Diarrhea, unspecified type R19.7 Diarrhea type: unspecified type Time Spent (min) 25
[2024-01-09 09:12] VITALS: BP 126/80; PULSE 108; TEMP 36.4; O2SAT 99; BMI 51.7
== END 2024-01-09 10:20 | disposition home or self-care (01) ==
PROVIDERS: PCP Family Medicine; Visit Provider Physician Assistant
DX: R19.7 Diarrhea, unspecified (principal)
CPT/HCPCS: 81003; 99213

== ENCOUNTER 2024-03-15 13:32 | Outpatient (AMB) | payer OTHER, SELFPAY ==
--- NOTE | 2024-03-15 13:34 | MHC.PC.OV ---
Vital Signs 03/15/24 13:36 Height 5 ft 4 in Weight 293 lb 6 oz BMI 50.4 BP 127/75 Blood Pressure Location Rt brachial Position Sitting Respiration 14 Pulse 89 Pulse Source Pulse Oximeter Temp 97.7 F Temp Source Temporal Artery Scan Pulse Oximetry (%) 97 Oxygen Delivery Method Room Air Intake Visit Reasons: Medication review Intake Note: Patient would like refill on her inhalers. Patient has been experiencing really bad pain in wrist and thumb that has caused her not to use her right hand. Patient states that pain is radiating up her arm. Patient notes that there is a lump by thumb and wrist. 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 Trialing semaglutide. She reports R wrist/thumb pain which radiates up into her arm. She has been taking tylenol/ibuprofen with no relief. [facility] Medical History Headache Degenerative disc disease, lumbar Degenerative disc disease, thoracic Anxiety Depression Bipolar 1 disorder Surgical History History of ear surgery History of wisdom tooth extraction Family History Mother Hypothyroid Gabriela's disease Arthritis Father No problems noted. Brother No problems noted. Sister No problems noted. Sister Bipolar 1 disorder Son No problems noted. Daughter No problems noted. Other Lymphoma Mental health disorder Prostate cancer Substance use disorder Social History Household Members: Spouse, Family and Children Household Members Other:: sister Housing: Other Do you presently have visiting nurse or other home services: No Alcohol intake: current Alcohol intake frequency: holidays/special occasions only Patient Tobacco Use Status: Former Tobacco user Tobacco use type: Cigarette e-Cigarette/Vaping Use: Currently Using Second Hand Smoke Exposure: Yes Substance Use Type: Marijuana service: No Current occupational status: employed and student Current occupation: [employer] Current occupational exposures/hazards: No Sexual orientation: Straight/Heterosexual Gender identity: Female Cognitive needs: No Hearing needs: No Vision needs: No Questionnaire PHQ-9 Over the last 2 weeks, how often have you been bothered by any of the following problems? 1. Little interest or pleasure in doing things: not at all 2. Feeling down, depressed, or hopeless: not at all 3. Trouble falling or staying asleep, or sleeping too much: not at all 4. Feeling tired or having little energy: not at all 5. Poor appetite or overeating: several days 6. Feeling bad about yourself - or that you are a failure or have let yourself or your family down: not at all 7. Trouble concentrating on things, such as reading the newspaper or watching television: not at all 8. Moving or speaking so slowly that other people could have noticed. Or the opposite - being so fidgety or restless that you have been moving around a lot more than usual: not at all 9. Thoughts that you would be better off or of hurting yourself in some way: not at all Total score: 1 Depression Screening Interpretation: Negative Depression Screening Done: Yes 83862 - PHQ-9 Billing: Yes Source: Developed by Drs. Tato Jenkins, Shira Barron, Tacho Khalil and colleagues, with an educational zheng from [employer]. Thrive Questionnaire Date Thrive assessed: 03/28/22 MARY ALICE-7 AMB Questionnaire MARY ALICE-7 Date MARY ALICE - 7 assessed: 03/15/24 Feeling nervous, anxious, or on edge: 1 = Several days Not being able to stop or control worryin = Several days Worrying too much about different things: 2 = More than half the days Trouble relaxin = More than half the days Being so restless that it is hard to sit still: 0 = Not at all Becoming easily annoyed or irritable: 1 = Several days Feeling afraid as if something awful might happen: 1 = Several days Total MARY ALICE-7 score (0-4 normal; 5-9 mild; 10-14 moderate; 15-21 severe): 8 Source: Developed by Drs. Tato Jenkins, Shira Barron, Tacho Khalil and colleagues, with an educational zheng from [employer]. MARY ALICE-7 Assessment Billing MARY ALICE-7 Assessment Tool: MARY ALICE-7 Assessment 22020 Review of Systems Const Denies chills, Denies fatigue, Denies fever(s), Denies headache(s) and Denies weakness ENT Denies dizziness and Denies headache(s) Card Denies dyspnea Resp Denies cough, Denies dyspnea, Denies wheezing and Denies other (shortness of breath) Musc Details: R wrist, thumb and arm pain Denies numbness and Denies tingling Neuro Denies dizziness, Denies headache(s), Denies numbness, Denies tingling and Denies weakness Psych Denies anxiety and Denies depression Endo Denies fatigue Aller/Immun Denies wheezing Physical exam (Primary Care) Vital Signs: Last Vital Signs Temp 97.7 F 03/15/24 13:36 Pulse 89 03/15/24 13:36 Resp 14 03/15/24 13:36 BP 127/75 03/15/24 13:36 Pulse Ox 97 03/15/24 13:36 Oxygen Delivery Method Room Air 03/15/24 13:36 BMI result Body Mass Index 50.4 Tobacco/Smoking Status: Tobacco use Status Tobacco use date assessed 03/15/24 03/15/24 13:49 Patient Tobacco Use Status Former Tobacco user 03/15/24 13:34 Tobacco use type Cigarette 03/15/24 13:34 e-Cigarette/Vaping Use Currently Using 03/15/24 13:34 PHQ-9: PHQ-9 Score PHQ-9: Total score 1 03/15/24 14:38 Depression Screening Interpretation: Negative Thrive Assessment: Date of Thrive Assessment Date Thrive assessed 03/28/22 03/15/24 13:34 Const General: well developed; No acute distress Nutritional Appearance: obese morbidly obese Orientation/consciousness: patient oriented x3 HENMT Head: Yes normocephalic and Yes atraumatic Eyes General: appearance normal, both eyes and all related structures Pupils: Equal, round and reactive pupils present EOM: EOMs intact bilaterally Resp Effort & Inspection: normal respiratory effort Neuro General: patient oriented x3 and gait normal Cranial nerves: Yes Equal, round and reactive pupils present Psych Affect: normal affect Results AMB Hemoglobin A1c AMB Hemoglobin A1c 5.3 % Last Edit by Virginia James CMA on 03/15/24 14:05 Results Reviewed Results Reviewed: Laboratory Last Values Hgb A1c (Clinic) 5.3 % (4.0-6.0) 03/15/24 14:01 Assessment and Plan Assessment & Plan (1) Right wrist pain: Code(s): M25.531 - Pain in right wrist Plan: Right?thumb?wrist?and?arm?pain Check?x-ray?of?hand?and?thumb Check?inflammatory?markers Continue?ibuprofen?800?mg?t.i.d. Lidocaine?gel Start?occupational?therapy Follow-up?in?about?a?month.??If?not?improving?will?make?a?referral?based?on?imaging?and?lab?work. Orders: Orders XR hand RT min 3V Today M25.531 - Pain in right wrist OT Evaluation and Treatment Today M25.531 - Pain in right wrist Erythrocyte Sedimentation Rate Today M25.531 - Pain in right wrist Complete Blood Count Auto Diff Today M25.531 - Pain in right wrist, Z00.00 - Encounter for general adult medical examination without abnormal findings Comprehensive Met. Panel Today M25.531 - Pain in right wrist AMB Hemoglobin A1c Today Z13.9 - Encounter for screening, unspecified XR hand wrist RT Today M25.531 - Pain in right wrist CRP High Sensitivity Today M25.531 - Pain in right wrist Rheumatoid Factor Today M25.531 - Pain in right wrist Cyclic Citrullinated Peptide Today M25.531 - Pain in right wrist Medications: New ibuprofen Do not take if in a 3rd trimester of a . 800 mg PO Q8H 14 days PRN 42 tabs 0RF pain lidocaine 4% 1 appl topical TID 30 days PRN 113 grams 0RF pain Changed From fluticasone propionate 100 mcg/actuation (Flovent Diskus) 1 inh inhalation RBID 30 days 60 ea 1RF To fluticasone propionate 100 mcg/actuation 1 inh inhalation RBID 30 days 60 ea 3RF Refilled albuterol sulfate 90 mcg/actuation (Ventolin HFA) 2 puffs inhalation Q4H 30 days PRN 1 inhaler 3RF Shortness Of Breath Coding Level of Care Code Est Pt Level 3 (32830) Diagnoses Right wrist pain M25.531 Additional Codes MARY ALICE-7 Assessment Billing - MARY ALICE-7 Assessment Tool: MARY ALICE-7 Assessment 99040 ([id number])
[2024-03-15 13:36] VITALS: BP 127/75; PULSE 89; RESP 14; TEMP 36.5; O2SAT 97; BMI 50.4
== END 2024-03-15 14:54 | disposition home or self-care (01) ==
PROVIDERS: PCP Family Medicine; Visit Provider Family Medicine
DX: M25.531 Pain in right wrist (principal)
CPT/HCPCS: 83036; 99214

== ENCOUNTER 2024-03-16 11:18 | Outpatient (REF) | payer OTHER, SELFPAY ==
--- NOTE | ~2024-03-16 | XR_ITS ---
EXAMINATION: XR HAND/WRIST, RIGHT CLINICAL INFORMATION: Right wrist pain. COMPARISON: None TECHNIQUE: PA, lateral, and oblique views of the right hand and wrist. FINDINGS: The bones and soft tissues are normal. No fracture. Alignment is anatomic. Joint spaces are maintained. No erosions or soft tissue calcifications. XR/XR hand wrist RT IMPRESSION: Normal radiographs of the hand and wrist.
[2024-03-16 13:28] LABS: MANUAL DIFF FLAG NO
[2024-03-16 13:33] LABS: Basophils Percent Auto 0.4 % (0-2); Eosinophils Absolute Auto 0.2 X10*3/uL (0.0-0.4); Eosinophils Percent Auto 2.8 % (0-4); Hematocrit 44.6 % (37.0-47.0); Hemoglobin 14.5 g/dl (12.0-16.0); Imm Gran Abs Auto 0.03 X10*3/uL (0.00-0.03); Imm Gran Pct Auto 0.4 % (0.0-0.4); Lymphocytes Absolute Auto 1.8 X10*3/uL (1.2-4.9); Lymphocytes Percent Auto 23.7 % (20-40); Mean Corpuscular HGB Conc 32.5 g/dl (31.0-35.0); Mean Corpuscular Hemoglobin 28.8 pg (27.0-33.0); Mean Corpuscular Volume 88.7 fL (80.0-98.0); Mean Platelet Volume 10.3 fL (9.4-12.3); Monocytes Absolute Auto 0.5 X10*3/uL (0.1-1.2); Neutrophils Absolute Auto 4.9 x10*3/uL (2.0-8.3); Neutrophils Percent Auto 65.7 % (45-73); Platelet Count 371 X10*3/uL (160-400); Red Blood Count 5.03 X10*6/uL (4.20-5.50); Red Cell Distribution Width 14.1 % (11.0-16.0); White Blood Count 7.5 X10*3/uL (4.8-10.8)
[2024-03-16 14:18] LABS: Erythrocyte Sedimentation Rate 6 MM/HR (0-20)
[2024-03-16 14:19] LABS: Rheumatoid Factor < 13.0 IU/mL (<15.0)
[2024-03-16 14:19] LABS: Alanine Aminotransferase 31 U/L (0-31); Albumin Level 4.2 g/dL (3.5-5.0); Alkaline Phosphatase 69 U/L (39-117); Anion Gap 15 (12-20); Aspartate Amino Transferase 30 U/L (5-31); Bilirubin Total 0.4 mg/dL (0.0-1.0); Blood Urea Nitrogen 8 mg/dL (9-16); Calcium 9.3 mg/dL (8.4-10.2); Carbon Dioxide 20 mmol/L (22-29); Chloride 109 mmol/L (96-108); Estimated Glomerular Filt Rate > 60; Glucose Random 104 mg/dL (60-115); Potassium 4.2 mmol/L (3.3-5.1); Sodium 140 mmol/L (135-145); Total Protein 7.7 g/dL (6.5-8.0)
[2024-03-18 08:08] LABS: CRP High Sensitivity 5.2 mg/L
[2024-03-18 18:29] LABS: Cyclic Citrullinated Peptide <16 UNITS
== END 2024-03-16 11:19 | disposition home or self-care (01) ==
LOC: HO.HMGCX 11:18
PROVIDERS: PCP Family Medicine; Visit Provider Family Medicine
DX: Z00.00 Encounter for general adult medical examination without abnormal findings (principal); M25.561 Pain in right knee
CPT/HCPCS: 36415; 73110; 73130; 80053; 85025; 85652; 86141; 86200; 86431

== ENCOUNTER 2024-03-16 23:48 | Emergency (ER) | payer OTHER, SELFPAY ==
[2024-03-16 23:56] VITALS: BP 151/88; PULSE 83; RESP 16; TEMP 36.4; O2SAT 99; BMI 50.3
--- NOTE | 2024-03-17 00:17 | ED_ITS ---
HPI - Extremity Problem General Chief complaint: Extremity Injury, Upper Stated complaint: unable to move fingers on right hand Time Seen by Provider: 03/17/24 00:16 Source: patient Mode of arrival: ambulatory Limitations: no limitations History of Present Illness HPI Narrative: Patient is a 28 year old assigned female at with a history of HTN presenting to the emergency department today with right wrist / thumb pain. Patient states that over the last 3 weeks she has had worsening right wrist / thumb pain. Patient states that she noticed a lump in the area and had an appointment with her PCP for it. Patient states that her PCP got lab work and an X-ray. Patient denies any dizziness, lightheadedness, abdominal pain, nausea, vomiting, fever, chills, blurry vision, double vision, loss of vision, chest pa in, difficulty breathing, shortness of breath, back pain, night sweats, pain with urination, increased urinary frequency, increased urinary urgency, blood in her urine or stool, syncope or a near syncopal episode, recent trauma or falls, bowel incontinence, bladder incontinence, bowel retention, bladder retention, or any other complaints at this time. MD Complaint: extremity pain Onset (ago): week(s) (3) Pain Consistency: constant Location: right and upper extremity Severity scale (1-10): 4 Relieving factors: nothing Exacerbating factors: nothing Associated symptoms: denies other symptoms Related Data Home Medications ?Medication ?Instructions ?Recorded ?Confirmed valacyclovir 1 gram tablet 1,000 mg PO DAILY 03/15/24 Previous Rx's ?Medication ?Instructions ?Recorded hydroxyzine pamoate 50 mg capsule 100 mg (2 x 50 mg) PO BEDTIME 30 02/02/24 days #60 caps albuterol sulfate 90 mcg/actuation 2 puff inhalation Q4H PRN 03/15/24 aerosol inhaler (Ventolin HFA) Shortness Of Breath 30 days #1 inhaler fluticasone propionate 100 1 inh inhalation RBID 30 days #60 03/15/24 mcg/actuation blister powder for ea inhalation ibuprofen 800 mg tablet 800 mg PO Q8H PRN pain 14 days #42 03/15/24 tabs lidocaine 4 % topical gel 1 appl topical TID PRN pain 30 03/15/24 days #113 grams Allergies Allergy/AdvReac Type Severity Reaction Status Date / Time bees Allergy Mild Swelling Uncoded 03/17/24 00:00 Review of Systems Constitutional: Constitutional: Reports no additional constitutional complaints, Denies chills, Denies fever(s) and Denies night sweats Eyes: Eyes: Reports no additional eye complaints, Denies blurry vision, Denies change in vision, Denies diplopia, Denies eye discharge, Denies loss of vision and Denies eye pain ENT: Denies dizziness Cardiovascular: Cardiovascular: Reports no additional cardiovascular complaints, Denies chest pain, Denies lightheadedness, Denies Loss of Consciousness and Denies dyspnea Respiratory: Respiratory: Reports no additional respiratory complaints and Denies dyspnea Gastrointestinal: Gastrointestinal: Reports no additional gastrointestinal complaints, Denies abdominal pain, Denies melena, Denies hematochezia, Denies change in bowel habits and Denies change in stool character Genitourinary: Genitourinary: Denies hematuria, Denies urinary frequency, Denies dysuria, Denies urinary incontinence, Denies urinary hesitancy and Denies urinary urgency Musculoskeletal: Musculoskeletal: Reports no additional musculoskeletal complaints, Denies numbness and Denies tingling Comments: right wrist and thumb pain / right wrist lump Neurologic: Denies dizziness, Denies loss of vision, Denies numbness and Denies tingling Psychiatric: Psychiatric: Reports no additional psychiatric complaints Endocrine: Endocrine: Reports no additional endocrine complaints Hematologic/Lymphatic: Hematologic/Lymphatic: Reports no additional hematologic/lymphatic complaints Allergic/Immunologic: Allergic/Immunologic: Reports no additional allergic/immunologic complaints [facility] Past Medical History Attestation statement: The following information was validated with the patient. Source: old records reviewed and nursing notes reviewed Medical History Headache Degenerative disc disease, lumbar Degenerative disc disease, thoracic Anxiety Depression Bipolar 1 disorder Surgical History History of ear surgery History of wisdom tooth extraction Family History Family History Mother Hypothyroid Gabriela's disease Arthritis Father No problems noted. Brother No problems noted. Sister No problems noted. Sister Bipolar 1 disorder Son No problems noted. Daughter No problems noted. Other Lymphoma Mental health disorder Prostate cancer Substance use disorder Social History Social History Household Members: Spouse, Family and Children Household Members Other:: sister Housing: Other Do you presently have visiting nurse or other home services: No Alcohol intake: current Alcohol intake frequency: holidays/special occasions only Patient Tobacco Use Status: Former Tobacco user Tobacco use type: Cigarette Smoked in Last 30 Days: No e-Cigarette/Vaping Use: Currently Using Second Hand Smoke Exposure: Yes Use of substances other than those prescribed or required for medical reasons: No Substance Use Type: Marijuana Advance Directives: No Advance Directives Information Provided: No Patient : No service: No Current occupational status: employed and student Current occupation: [employer] Current occupational exposures/hazards: No Sexual orientation: Straight/Heterosexual Gender identity: Female Cognitive needs: No Hearing needs: No Vision needs: No Physical Exam Vital Signs: Vital Signs: Last Vital Signs Temp 97.8 F 03/17/24 01:43 Pulse 78 03/17/24 01:43 Resp 18 03/17/24 01:43 BP 136/68 03/17/24 01:43 Pulse Ox 99 03/17/24 01:43 O2 Del Method Room Air 03/17/24 01:43 BMI result Body Mass Index 50.3 Const: General: cooperative, no acute distress, alert and awake Nutritional Appearance: well nourished Orientation/consciousness: patient oriented x3 Limitations: no limitations HEENT: Head: Yes normal to inspection and Yes atraumatic Ears: hearing grossly normal bilaterally and external ears normal General nose exam: Normal external nose present, no nasal discharge noted and no epistaxis Face and sinus: Yes normal facial exam, No abrasion and No laceration Mouth: Normal oral and palatal mucosa present, no drooling and no muffled voice Eyes: General: appearance normal, both eyes and all related structures Periorbital: periorbital findings normal Eyelids: Yes eyelids normal Conjunctivae: conjunctivae normal Pupils: Equal, round and reactive pupils present EOM: EOMs intact bilaterally Neck: Neck: Yes normal visual inspection, Yes full ROM and Yes no lymphadenopathy Chest: Chest palpation & inspection: normal inspection of the chest Resp: Effort & Inspection: normal respiratory effort and able to speak in complete sentences GI: Inspection: Yes normal to inspection Neuro: General: patient oriented x3 and moves all extremities Cranial nerves: Yes Equal, round and reactive pupils present Cognition (Neuro): normal cognition Motor exam (neuro): 5/5 motor strength present throughout Sensory Exam: Normal double simultaneous stimulation for sensation Coordination: [id number] test normal Extrem: Other: snuff box tenderness to palpation on the right side General: Yes normal to inspection, Yes full ROM and Yes capillary refill normal Psych: Appearance: grossly normal Mental Status: mental status grossly normal Affect: normal affect Attitude: cooperative Thought process: Normal thought process present Thought content: Normal thought content present Insight: Good insight present (Psych) Medications Administered Discontinued Medications Generic Name Dose Route Start Last Admin Trade Name Trudi PRN Reason Stop Dose Admin Ketorolac Tromethamine 15 mg 03/17/24 00:56 03/17/24 01:25 Ketorolac Tromethamine 15 Mg/Ml Vial IM 03/17/24 00:57 15 mg ONCE ONE Administration Medical Decision Making Medical Decision Making [facility] Narrative: Patient is a 28 year old assigned female at with a history of HTN presenting to the emergency department today with right wrist and thumb pain. Patient's physical exam showed tenderness to palpation of the right snuff box b ut was otherwise unremarkable. Patient's right x-ray showed no acute process. Given the patient's presentation, I am concerned for a scaphoid injury. I explained my physical exam findings as well as all test results to the patient. I answered all questions asked by the patient. Patient's right wrist was placed in a thumb spica splint, without incident. Patient's PMS was intact prior to and after splint placement. I stressed the importance of the patient taking her medication as prescribed. I stressed the importance of the patient following up with her primary care provider and an orthopedic provider. I stressed the importance of the patient returning to the emergency department immediately if her symptoms were to worsen or if she were to develop any dizziness, shortness of breath, difficulty breathing, chest pain, blurry vision, loss of vision, nausea, vomiting, abdominal pain, fever, chills, back pain, or any other complaints. Patient verbalized agreement and understanding with this treatment plan and discharge. Differential Diagnosis Differential Diagnoses: The differential diagnosis associated with the presentation includes Wrist pain Wrist sprain Wrist strain Scaphoid injury Admission/Observation Consideration of admission/observation: Escalation of care including admission/observation considered Patient would have been admitted to the hospital had her work up had any findings where hospital admission was appropriate and her clinical presentation warranted hospital admission. Lab Data MDM Lab Attestation statement: I reviewed the patient's lab results. Labs from 03/16/2024 reviewed and are all grossly normal. Independent Interpretation I performed an independent interpretation of an: Plain X-Ray Interpretation: My interpretation is in agreement with the radiologist's impression of this imaging study. EXAMINATION: XR HAND/WRIST, RIGHT CLINICAL INFORMATION: Right wrist pain. COMPARISON: None TECHNIQUE: PA, lateral, and oblique views of the right hand and wrist. FINDINGS: The bones and soft tissues are normal. No fracture. Alignment is anatomic. Joint spaces are maintained. No erosions or soft tissue calcifications. XR/XR hand wrist RT IMPRESSION: Normal radiographs of the hand and wrist. Dictated By: Jared Cornejo MD Signed By: Electronically signed by Jared Cornejo MD 03/17/24 0104 Radiology Impression Discussion of test interpretation with radiology: I have reviewed the radiologist's reading. Chronic Conditions Patient?s care impacted by: Hypertension Procedures Orthopedic Splinting/Casting Injury #1: Side: right Upper Extremity Injury Location: wrist Upper Extremity Immobilizer: thumb spica Discharge Plan Discharge Clinical Impression: Acute wrist pain, Sprain of wrist Patient Disposition: Home, Self-Care Instructions: Wrist Injury (ED) Additional Instructions: Follow up with your primary care provider and an orthopedic provider. Return to the emergency department immediately if your symptoms worsen or if you develop any dizziness, shortness of breath, difficulty breathing, chest pain, blurry vision, loss of vision, nausea, vomiting, abdominal pain, fever, chills, back pain, or any other complaints. Prescriptions: No Action hydroxyzine pamoate 50 mg capsule 100 mg PO BEDTIME 30 Days Qty: 60 0RF Patient Comments: 50 mg or 100 mg prn valacyclovir 1 gram tablet 1,000 mg PO DAILY albuterol sulfate [Ventolin HFA] 90 mcg/actuation HFA aerosol inhaler 2 puff inhalation Q4H PRN (Reason: Shortness Of Breath) 30 Days Qty: 1 3RF fluticasone propionate 100 mcg/actuation blister with device 1 inh inhalation RBID 30 Days Qty: 60 3RF ibuprofen 800 mg tablet 800 mg PO Q8H PRN (Reason: pain) 14 Days Qty: 42 0RF Rx Instructions: Do not take if in a 3rd trimester of a . lidocaine 4 % gel 1 appl topical TID PRN (Reason: pain) 30 Days Qty: 113 0RF Referrals: [facility] [Provider Group] (Call to establish and follow up with an orthopedic provider.) Phuc Grewal MD [Primary Care Provider] - Stand Alone Forms: Work/School Release Interventions: ED Discharge Assessment Last Done: 03/17/24 01:43 Discharge Date/Time: 03/17/24 01:34 Print Language: Chinese
[2024-03-17] MEDS: Ketorolac Tromethamine 15 MG/ML VIAL IM (01:25)
[2024-03-17 01:43] VITALS: BP 136/68; PULSE 78; RESP 18; TEMP 36.6; O2SAT 99
== END 2024-03-17 01:34 | disposition home or self-care (01) ==
PROVIDERS: Emergency Provider Emergency Medicine Emergency Medical Services; PCP Family Medicine
DX: S63.501A Unspecified sprain of right wrist, initial encounter (principal); I10 Essential (primary) hypertension; X58.XXXA Exposure to other specified factors, initial encounter; Y93.9 Activity, unspecified; Y92.9 Unspecified place or not applicable; Y99.9 Unspecified external cause status
CPT/HCPCS: 29125; 96372; 99284; J1885

== ENCOUNTER 2024-04-22 08:13 | Outpatient (AMB) | payer OTHER, SELFPAY ==
--- NOTE | 2024-04-22 08:13 | AM.OFFWIN_ITS ---
Intake Vital Signs 04/22/24 08:19 Height 5 ft 4 in BP 132/76 Blood Pressure Location Rt brachial Position Sitting Pulse 92 Pulse Source Pulse Oximeter Pulse Oximetry (%) 98 Oxygen Delivery Method Room Air Intake Visit Reasons: EP Heart palpitation/BP high/Migraines Intake Note: pt is here for racing heart and migraines Patient Tobacco Use Status: Former Tobacco user Allergies bees Allergy (Mild, Uncoded 04/22/24 08:20) Swelling Do you need a note to return to daycare/school/sports/work: No HPI HPI Comments History of Present Illness Details Patient is a 28-year-old female with a past free of severe preeclampsia with both for pregnancies, she also has hypertension for which she used to take 15 mg of amlodipine daily which was reduced to 10 mg daily and then the medication was stopped by her primary care doctor. She is here today complaining of heart palpitations a migraine, nausea and vomiting as well as elevated blood pressures for the last few weeks. She states she called an ambulance last night and they checked her blood pressure 5 times and it was around 170s/110s. She refused to go to the hospital and came here this morning instead. She denies any chance of being because she stated she ended her menstrual cycle f rona days ago. She does have a blood pressure cuff at home and she checks it often and it is always elevated. She last saw her primary care doctor, Dr. Grewal about 1 month ago. [facility] Medical History Headache Degenerative disc disease, lumbar Degenerative disc disease, thoracic Anxiety Depression Bipolar 1 disorder Surgical History History of ear surgery History of wisdom tooth extraction Family History Mother Hypothyroid Gabriela's disease Arthritis Father No problems noted. Brother No problems noted. Sister No problems noted. Sister Bipolar 1 disorder Son No problems noted. Daughter No problems noted. Other Lymphoma Mental health disorder Prostate cancer Substance use disorder Social History Household Members: Spouse, Family and Children Household Members Other:: sister Housing: Other Do you presently have visiting nurse or other home services: No Alcohol intake: current Alcohol intake frequency: holidays/special occasions only Patient Tobacco Use Status: Former Tobacco user Tobacco use type: Cigarette e-Cigarette/Vaping Use: Currently Using Second Hand Smoke Exposure: Yes Substance Use Type: Marijuana Advance Directives: No Advance Directives Information Provided: Yes service: No Current occupational status: employed and student Current occupation: [employer] Current occupational exposures/hazards: No Sexual orientation: Straight/Heterosexual Gender identity: Female Cognitive needs: No Hearing needs: No Vision needs: No Review of Systems Const All systems reviewed & are unremarkable except as noted in HPI and below Physical Exam Vital Signs: Last Vital Signs Pulse 92 04/22/24 08:19 BP 132/76 04/22/24 08:19 Pulse Ox 98 04/22/24 08:19 Oxygen Delivery Method Room Air 04/22/24 08:19 Const General: cooperative, healthy appearing, comfortable, no acute distress and well developed Orientation/consciousness: patient oriented x3 Limitations: no limitations HEENT Head: Yes normal to inspection Eyes General: appearance normal, both eyes and all related structures Neck Neck: Yes normal visual inspection and Yes full ROM Resp Effort & Inspection: normal respiratory effort and able to speak in complete s entences Auscultation: clear to auscultation bilaterally Cardio Rate: regular rate Rhythm: regular rhythm Heart sounds: normal S1 and S2 Skin General skin exam: no rashes or lesions noted Neuro General: patient oriented x3 Extrem General: Yes normal to inspection Assessment & Plan Assessment & Plan (1) Hypertension: Code(s): I10 - Essential (primary) hypertension Qualifiers: Hypertension type: unspecified Qualified Code(s): I10 - Essential (primary) hypertension Plan: Advised to check her blood pressure twice daily and keep a log so that she can bring this log to her follow-up appointment with Dr. Grewal to see how well the medication is working, I am starting her on 5 mg of amlodipine daily today. Gave red flag warning signs and when to go to the ER and did review with patient that she is at risk for stroke when her blood pressures are this elevated and uncontrolled. Plan See above Medications: New amlodipine 5 mg PO DAILY 30 tabs 0RF Coding Level of Care Code Est Pt Level 3 (44712) Diagnoses Hypertension, unspecified type I10 Hypertension type: unspecified
[2024-04-22 08:19] VITALS: BP 132/76; PULSE 92; O2SAT 98
== END 2024-04-22 09:35 | disposition home or self-care (01) ==
PROVIDERS: PCP Family Medicine; Visit Provider Physician Assistant
DX: I10 Essential (primary) hypertension (principal)
CPT/HCPCS: 99213

== ENCOUNTER 2024-04-22 10:58 | Emergency (ER) | payer OTHER, SELFPAY ==
--- NOTE | 2024-04-22 | ECG_ITS ---
Test Reason : PALPITATIONS Blood Pressure : / mmHG Vent. Rate : 081 BPM Atrial Rate : 081 BPM P-R Int : 144 ms QRS Dur : 094 ms QT Int : 358 ms P-R-T Axes : 035 036 034 degrees QTc Int : 415 ms Normal sinus rhythm Normal ECG No previous ECGs available Referred By: Generic ED Physician Electronically Signed By:NEISHA CORTEZ
--- NOTE | ~2024-04-22 | XR_ITS ---
EXAMINATION: XR CHEST CLINICAL INFORMATION: Chest pain COMPARISON: None available. TECHNIQUE: 2 views of the chest were obtained. FINDINGS: No significant abnormality is noted involving the heart, lungs, mediastinum, bony thorax or soft tissues. XR/XR chest 2V IMPRESSION: No acute cardiopulmonary disease.
[2024-04-22 14:03] VITALS: BP 171/95; PULSE 96; RESP 16; TEMP 37; O2SAT 98; BMI 52.6
--- NOTE | 2024-04-22 14:03 | ED_ITS ---
HPI - General Adult General Chief complaint: Chest Pain Stated complaint: Heart palpitations/Chest burning Time Seen by Provider: 04/22/24 14:03 Source: patient Mode of arrival: ambulatory Limitations: no limitations History of Present Illness ED Provider: Celina Bull PA-C HPI narrative: Patient is a 28 year old assigned female at with a history of PCOS, HTN, bipolar disorder, and hypothyroidism presenting to the emergency department today with chest pain. Patient states that over the last week she has had chest soreness . Patient denies any dizziness, lightheadedness, abdominal pain, nausea, vomiting, fever, chills, blurry vision, double vision, loss of vision, difficulty breathing, shortness of breath, back pain, night sweats, pain with urination, increased urinary frequency, increased urinary urgency, blood in her urine or stool, syncope or a near syncopal episode, recent trauma or falls, bowel incontinence, bladder incontinence, or any other complaints at this time. Onset (ago): week(s) (1) Location: chest Severity: mild Relieving factors: none Exacerbating factors: none Associated symptoms: chest pain Treatments prior to arrival: none Related Data Home Medications ?Medication ?Instructions ?Recorded ?Confirmed valacyclovir 1 gram tablet 1,000 mg PO DAILY 03/15/24 04/24/24 Previous Rx's ?Medication ?Instructions ?Recorded albuterol sulfate 90 mcg/actuation 2 puff inhalation Q4H PRN 03/15/24 aerosol inhaler (Ventolin HFA) Shortness Of Breath 30 days #1 inhaler ibuprofen 800 mg tablet 800 mg PO Q8H PRN pain 14 days #42 03/15/24 tabs lidocaine 4 % topical gel 1 appl topical TID PRN pain 30 03/15/24 days #113 grams fluticasone propionate 100 1 inh inhalation Q12H 30 days #60 03/22/24 mcg/actuation blister powder for ea inhalation hydroxyzine pamoate 50 mg capsule 100 mg (2 x 50 mg) PO BEDTIME 30 04/16/24 days #60 caps amlodipine 5 mg tablet 5 mg PO DAILY #30 tabs 04/22/24 metoprolol succinate 25 mg 12.5 mg (1/2 x 25 mg) PO DAILY 90 04/24/24 tablet,extended release 24 hr days #45 tabs omeprazole 40 mg capsule,delayed 40 mg PO DAILY 30 days #30 caps 04/24/24 release Allergies Allergy/AdvReac Type Severity Reaction Status Date / Time bees Allergy Mild Swelling Uncoded 04/24/24 09:54 Review of Systems 2 Constitutional: Constitutional: Reports no additional constitutional complaints, Denies chills, Denies fever(s) and Denies night sweats Eyes: Eyes: Reports no additional eye complaints, Denies blurry vision, Denies change in vision, Denies diplopia, Denies eye discharge, Denies loss of vision and Denies eye pain ENT: Denies dizziness Cardiovascular: Cardiovascular: Reports no additional cardiovascular complaints, Reports chest pain, Denies lightheadedness, Denies Loss of Consciousness and Denies dyspnea Respiratory: Respiratory: Reports no additional respiratory complaints and Denies dyspnea Gastrointestinal: Gastrointestinal: Reports no additional gastrointestinal complaints, Denies abdominal pain, Denies melena, Denies hematochezia, Denies change in bowel habits and Denies change in stool character Genitourinary: Genitourinary: Denies hematuria, Denies urinary frequency, Denies dysuria, Denies urinary incontinence, Denies urinary hesitancy and Denies urinary urgency Musculoskeletal: Musculoskeletal: Reports no additional musculoskeletal complaints, Denies numbness and Denies tingling Neurologic: Denies dizziness, Denies loss of vision, Denies numbness and Denies tingling Psychiatric: Psychiatric: Reports no additional psychiatric complaints Endocrine: Endocrine: Reports no additional endocrine complaints Hematologic/Lymphatic: Hematologic/Lymphatic: Reports no additional hematologic/lymphatic complaints Allergic/Immunologic: Allergic/Immunologic: Reports no additional allergic/immunologic complaints [facility] Past Medical History Attestation statement: The following information was validated with the patient. Source: old records reviewed and nursing notes reviewed Medical History Headache Degenerative disc disease, lumbar Degenerative disc disease, thoracic Anxiety Depression Bipolar 1 disorder Surgical History History of ear surgery History of wisdom tooth extraction Family History Family History Mother Hypothyroid Gabriela's disease Arthritis Father No problems noted. Brother No problems noted. Sister No problems noted. Sister Bipolar 1 disorder Son No problems noted. Daughter No problems noted. Other Lymphoma Mental health disorder Prostate cancer Substance use disorder Social History Social History Household Members: Spouse, Family and Children Household Members Other:: sister Housing: Other Do you presently have visiting nurse or other home services: No Alcohol intake: current Alcohol intake frequency: holidays/special occasions only Patient Tobacco Use Status: Former Tobacco user Tobacco use type: Cigarette e-Cigarette/Vaping Use: Currently Using Second Hand Smoke Exposure: Yes Substance Use Type: Marijuana service: No Current occupational status: employed and student Current occupation: [employer] Current occupational exposures/hazards: No Sexual orientation: Straight/Heterosexual Gender identity: Female Cognitive needs: No Hearing needs: No Vision needs: No Physical Exam ED Vital Signs: BMI result Body Mass Index 52.6 Const General: cooperative, no acute distress, alert and awake Nutritional Appearance: well nourished Orientation/consciousness: patient oriented x3 Limitations: no limitations HENMT Head: Yes normal to inspection and Yes atraumatic Ears: hearing grossly normal bilaterally and external ears normal General nose exam: Normal external nose present, no nasal discharge noted and no epistaxis Face and sinus: Yes normal facial exam, No abrasion and No laceration Mouth: Normal oral and palatal mucosa present, no drooling and no muffled voice Eyes General: appearance normal, both eyes and all related structures Periorbital: periorbital findings normal Eyelids: Yes eyelids normal Conjunctivae: conjunctivae normal Pupils: Equal, round and reactive pupils present EOM: EOMs intact bilaterally Neck Neck: Yes normal visual inspection, Yes full ROM and Yes no lymphadenopathy Chest Chest palpation & inspection: normal inspection of the chest Resp Effort & Inspection: normal respiratory effort and able to speak in complete sentences GI Inspection: Yes normal to inspection Neuro General: patient oriented x3 and moves all extremities Cranial nerves: Yes Equal, round and reactive pupils present Cognition (Neuro): normal cognition Motor exam (neuro): 5/5 motor strength present throughout Sensory Exam: Normal double simultaneous stimulation for sensation Coordination: [id number] test normal Extrem General: Yes normal to inspection, Yes full ROM and Yes capillary refill normal Psych Appearance: grossly normal Mental Status: mental status grossly normal Affect: normal affect Attitude: cooperative Thought process: Normal thought process present Thought content: Normal thought content present Insight: Good insight present (Psych) Course Course Course Narrative: RME performed by Celina Bull PA-C. Patient is a 28 year old assigned female at presenting to the emergency department with palpitations and feeling as though there are knives in her chest. Detailed physical exam and review of systems are deferred to the electric clock mechanic. EKG, labs, imaging, and swabs ordered. Patient placed back in the waiting room pending room availability and results. Medical Decision Making Medical Decision Making [facility] Narrative: Patient is a 28 year old assigned female at with a history of HTN, PCOS, bipolar disorder, hypothyroidism, and anxiety presenting to the emergency department today with chest pain. Patient's limited physical exam performed in triage was unremarkable. Patient's blood work was unremarkable. Patient's EKG was unremarkable. Patient's chest x-ray showed no acute process. Patient left the department without completing treatment. Patient left the department before myself or any of the other emergency department clinicians could explain to or review with the patient; physical exam findings, test results, need or lack there of for additional testing, need or lack there of for a procedure to be performed, need or lack there of for hospital admission / transfer, need or lack there of for prescription medication, treatment options, or a treatment plan. Differential Diagnosis Differential Diagnoses: The differential diagnosis associated with the presentation includes Chest pain NSTEMI STEMI Costochondritis Anxiety Admission/Observation Consideration of admission/observation: Escalation of care including admission/observation considered Patient would have been admitted to the hospital had she completed her work up and it had any findings where hospital admission was appropriate, her clinical presentation warranted hospital admission, had myself or any other emergency human resources department supervisor had the ability to discuss need or lack there of for hospital admission, and the patient hadn't left the department without completing treatment. Lab Data [facility] Lab Attestation statement: I reviewed the patient's lab results. My interpretation of these results are in the [facility] Rationale portion of this note. 04/22/24 14:17 04/22/24 14:17 Labs: Lab Results 04/22/24 Range/Units 14:17 WBC 10.5 (4.8-10.8) X10*3/uL RBC 4.91 (4.20-5.50) X10*6/uL Hgb 14.2 (12.0-16.0) g/dl Hct 42.5 (37.0-47.0) % MCV 86.6 (80.0-98.0) fL MCH 28.9 (27.0-33.0) pg MCHC 33.4 (31.0-35.0) g/dl RDW 13.9 (11.0-16.0) % Plt Count 411 H (160-400) X10*3/uL MPV 9.2 L (9.4-12.3) fL Immature Gran % (Auto) 0.3 (0.0-0.4) % Neut % (Auto) 71.9 (45-73) % Lymph % (Auto) 22.7 (20-40) % [place] % (Auto) 3.9 (2-11) % Eos % (Auto) 0.7 (0-4) % Baso % (Auto) 0.5 (0-2) % Lymph # (Auto) 2.4 (1.2-4.9) X10*3/uL [place] # (Auto) 0.4 (0.1-1.2) X10*3/uL Eos # (Auto) 0.1 (0.0-0.4) X10*3/uL Baso # (Auto) 0.1 (0.0-0.2) X10*3/uL Abs Immat Gran (auto) 0.03 (0.00-0.03) X10*3/uL Absolute Neuts (auto) 7.6 (2.0-8.3) x10*3/uL Absolute Nucleated RBC 0.000 (0.0-0.012) X10*3/uL Nucleated RBC % (auto) 0.0 (0.0-0.2) /100WBC Sodium 140 (135-145) mmol/L Potassium 4.1 (3.3-5.1) mmol/L Chloride 109 H (96-108) mmol/L Carbon Dioxide 21 L (22-29) mmol/L Anion Gap 14 (12-20) BUN 10 (9-16) mg/dL Creatinine 0.76 (0.5-1.4) mg/dL Estim Creat Clear Calc 149.7 Estimated GFR > 60 Random Glucose 118 H (60-115) mg/dL Calcium 9.4 (8.4-10.2) mg/dL Total Bilirubin 0.3 (0.0-1.0) mg/dL AST 21 (5-31) U/L ALT 26 (0-31) U/L Alkaline Phosphatase 64 (39-117) U/L Troponin I High Sens < 2.7 (<3.5-17.0) ng/L Total Protein 7.5 (6.5-8.0) g/dL Albumin 4.3 (3.5-5.0) g/dL Influenza Type A (PCR) NEGATIVE (Negative) Influenza Type B (PCR) NEGATIVE (Negative) RSV RNA Qual (PCR) NEGATIVE (Negative) SARS-CoV-2 RNA (RT-PCR) NEGATIVE (Negative) Independent Interpretation I performed an independent interpretation of an: EKG and Plain X-Ray Interpretation: My interpretation is in agreement with the radiologist's impression of this imaging study. - EXAMINATION: XR CHEST CLINICAL INFORMATION: Chest pain COMPARISON: None available. TECHNIQUE: 2 views of the chest were obtained. FINDINGS: No significant abnormality is noted involving the heart, lungs, mediastinum, bony thorax or soft tissues. XR/XR chest 2V IMPRESSION: No acute cardiopulmonary disease. Dictated By: Mona Curran MD Signed By: Electronically signed by Mona Curran MD 04/22/24 1522 - Vent. Rate: 081 BPM Atrial Rate: 081 BPM P-R Int: 144 ms QRS Dur: 094 ms QT Int: 358 ms P-R-T Axes: 035 036 034 degrees QTc Int: 415 ms Normal sinus rhythm Normal ECG No previous ECGs available Electronically Signed By:CHAPIN CORTEZ Dictated By: Chapin Cortez MD Signed By: Electronically signed by Chapin Cortez MD 04/22/24 5652 Radiology Impression Discussion of test interpretation with radiology: I have reviewed the radiologist's reading. Discharge Plan Discharge Clinical Impression: Chest pain Patient Disposition: Left W/O Completing Treatment Prescriptions: No Action fluticasone propionate 100 mcg/actuation blister with device 1 inh inhalation Q12H 30 Days Qty: 60 0RF hydroxyzine pamoate 50 mg capsule 100 mg PO BEDTIME 30 Days Qty: 60 0RF Patient Comments: 50 mg or 100 mg prn valacyclovir 1 gram tablet 1,000 mg PO DAILY albuterol sulfate [Ventolin HFA] 90 mcg/actuation HFA aerosol inhaler 2 puff inhalation Q4H PRN (Reason: Shortness Of Breath) 30 Days Qty: 1 3RF ibuprofen 800 mg tablet 800 mg PO Q8H PRN (Reason: pain) 14 Days Qty: 42 0RF Rx Instructions: Do not take if in a 3rd trimester of a . lidocaine 4 % gel 1 appl topical TID PRN (Reason: pain) 30 Days Qty: 113 0RF metoprolol succinate 25 mg tablet extended release 24 hr 12.5 mg PO DAILY 90 Days Qty: 45 2RF omeprazole 40 mg capsule,delayed release(DR/EC) 40 mg PO DAILY 30 Days Qty: 30 1RF amlodipine 5 mg tablet 5 mg PO DAILY Qty: 30 0RF Interventions: LWBS Worksheet Last Done: 04/22/24 21:10 Discharge Date/Time: 04/22/24 21:10
[2024-04-22 14:21] LABS: MANUAL DIFF FLAG NO
[2024-04-22 14:24] LABS: Basophils Absolute Auto 0.1 X10*3/uL (0.0-0.2); Basophils Percent Auto 0.5 % (0-2); Eosinophils Absolute Auto 0.1 X10*3/uL (0.0-0.4); Eosinophils Percent Auto 0.7 % (0-4); Hematocrit 42.5 % (37.0-47.0); Hemoglobin 14.2 g/dl (12.0-16.0); Imm Gran Abs Auto 0.03 X10*3/uL (0.00-0.03); Imm Gran Pct Auto 0.3 % (0.0-0.4); Lymphocytes Absolute Auto 2.4 X10*3/uL (1.2-4.9); Lymphocytes Percent Auto 22.7 % (20-40); Mean Corpuscular HGB Conc 33.4 g/dl (31.0-35.0); Mean Corpuscular Hemoglobin 28.9 pg (27.0-33.0); Mean Corpuscular Volume 86.6 fL (80.0-98.0); Mean Platelet Volume 9.2 fL (9.4-12.3); Monocytes Absolute Auto 0.4 X10*3/uL (0.1-1.2); Monocytes Percent Auto 3.9 % (2-11); Neutrophils Absolute Auto 7.6 x10*3/uL (2.0-8.3); Neutrophils Percent Auto 71.9 % (45-73); Platelet Count 411 X10*3/uL (160-400); Red Blood Count 4.91 X10*6/uL (4.20-5.50); Red Cell Distribution Width 13.9 % (11.0-16.0); White Blood Count 10.5 X10*3/uL (4.8-10.8)
[2024-04-22 14:40] LABS: Alanine Aminotransferase 26 U/L (0-31); Albumin Level 4.3 g/dL (3.5-5.0); Alkaline Phosphatase 64 U/L (39-117); Anion Gap 14 (12-20); Aspartate Amino Transferase 21 U/L (5-31); Bilirubin Total 0.3 mg/dL (0.0-1.0); Blood Urea Nitrogen 10 mg/dL (9-16); Calcium 9.4 mg/dL (8.4-10.2); Carbon Dioxide 21 mmol/L (22-29); Chloride 109 mmol/L (96-108); Creatinine Clr Calc Pharmacy 149.7; Estimated Glomerular Filt Rate > 60; Glucose Random 118 mg/dL (60-115); Potassium 4.1 mmol/L (3.3-5.1); Sodium 140 mmol/L (135-145); Total Protein 7.5 g/dL (6.5-8.0)
[2024-04-22 14:47] LABS: Troponin-I High Sensitivity < 2.7 ng/L (<3.5-17.0)
[2024-04-22 15:35] LABS: Influenza A PCR NEGATIVE (Negative); Influenza B PCR NEGATIVE (Negative); Resp Syncy Virus RNA Qual PCR NEGATIVE (Negative); SARS COV2 PCR INHOUSE NEGATIVE (Negative)
== END 2024-04-22 21:10 | disposition left against medical advice (07) ==
PROVIDERS: Physician Assistant Medical; Emergency Provider Emergency Medicine; PCP Family Medicine
DX: R07.9 Chest pain, unspecified (principal); I10 Essential (primary) hypertension; Z03.818 Encounter for observation for suspected exposure to other biological agents ruled out
CPT/HCPCS: 0241U; 36415; 71046; 80053; 84484; 85025; 93005; 99283

== ENCOUNTER → 2024-04-22 11:16 | Outpatient (BNV) | payer OTHER, SELFPAY | PROVIDERS: PCP Family Medicine; Visit Provider Internal Medicine | DX: R00.2 Palpitations (principal) | CPT/HCPCS: 93010 ==

== ENCOUNTER 2024-04-24 09:39 | Outpatient (AMB) | payer OTHER, SELFPAY ==
--- NOTE | 2024-04-24 09:48 | MHC.PC.OV ---
Vital Signs 04/24/24 09:49 Height 5 ft 3 in Weight 291 lb 3 oz BMI 51.6 BP 140/90 H Blood Pressure Location Lt brachial Position Sitting Respiration 16 Pulse 92 Pulse Source Pulse Oximeter Pulse Oximetry (%) 98 Oxygen Delivery Method Room Air Intake Visit Reasons: high bp Intake Note: Patient is here with cardiac symptoms for 2 weeks. She states when she lays down, her chest has a thumping feeling, around mid chest, goes fast and then stops. Allergies bees Allergy (Mild, Uncoded 04/24/24 09:54) Swelling Medication List - Last Reconciled 04/24/24 by Phuc Grewal MD albuterol sulfate 90 mcg/actuation (Ventolin HFA) 2 puffs inhalation Q4H PRN 30 days amlodipine 5 mg PO DAILY fluticasone propionate 100 mcg/actuation 1 inh inhalation Q12H 30 days hydroxyzine pamoate 100 mg (2 x 50 mg) PO BEDTIME 30 days ibuprofen 800 mg PO Q8H PRN 14 days lidocaine 4% 1 appl topical TID PRN 30 days valacyclovir 1,000 mg PO DAILY Tobacco use date assessed: 04/24/24 Dental Screening Dental Screen Date: 03/15/24 HPI high bp HPI Details 28 y/o female presents to f/u hypertension. Blood pressure today 140/90. She is on amlodipine 5mg daily. Had went to the ED 2 days ago with chest discomfort. Work-up was negative. [facility] Medical History Headache Degenerative disc disease, lumbar Degenerative disc disease, thoracic Anxiety Depression Bipolar 1 disorder Surgical History History of ear surgery History of wisdom tooth extraction Family History Mother Hypothyroid Gabriela's disease Arthritis Father No problems noted. Brother No problems noted. Sister No problems noted. Sister Bipolar 1 disorder Son No problems noted. Daughter No problems noted. Other Lymphoma Mental health disorder Prostate cancer Substance use disorder Social History Household Members: Spouse, Family and Children Household Members Other:: sister Housing: Other Do you presently have visiting nurse or other home services: No Alcohol intake: current Alcohol intake frequency: holidays/special occasions only Patient Tobacco Use Status: Former Tobacco user Tobacco use type: Cigarette e-Cigarette/Vaping Use: Currently Using Second Hand Smoke Exposure: Yes Substance Use Type: Marijuana service: No Current occupational status: employed and student Current occupation: [employer] Current occupational exposures/hazards: No Sexual orientation: Straight/Heterosexual Gender identity: Female Cognitive needs: No Hearing needs: No Vision needs: No Questionnaire Thrive Questionnaire Date Thrive assessed: 03/28/22 MARY ALICE-7 AMB Questionnaire MARY ALICE-7 Date MARY ALICE - 7 assessed: 03/15/24 Source: Developed by Drs. Tato Jenkins, Shira Barron, Tacho Khalil and colleagues, with an educational zheng from [email or web address]. Review of Systems Const Denies chills, Denies fatigue, Denies fever(s), Denies headache(s) and Denies weakness ENT Denies dizziness and Denies headache(s) Card Denies dyspnea Resp Denies cough, Denies dyspnea, Denies wheezing and Denies other (shortness of breath) Musc Denies numbness and Denies tingling Neuro Denies dizziness, Denies headache(s), Denies numbness, Denies tingling and Denies weakness Psych Reports anxiety and Denies depression Endo Denies fatigue Aller/Immun Denies wheezing Physical exam (Primary Care) Vital Signs: Last Vital Signs Pulse 92 04/24/24 09:49 Resp 16 04/24/24 09:49 BP 140/90 H 04/24/24 09:49 Pulse Ox 98 04/24/24 09:49 Oxygen Delivery Method Room Air 04/24/24 09:49 BMI result Body Mass Index 51.6 Tobacco/Smoking Status: Tobacco use Status Tobacco use date assessed 04/24/24 04/24/24 09:55 Patient Tobacco Use Status Former Tobacco user 04/24/24 09:48 Tobacco use type Cigarette 04/24/24 09:48 e-Cigarette/Vaping Use Currently Using 04/24/24 09:48 Thrive Assessment: Date of Thrive Assessment Date Thrive assessed 03/28/22 04/24/24 09:48 Const General: well developed; No acute distress Nutritional Appearance: obese morbidly obese Orientation/consciousness: patient oriented x3 HENMT Head: Yes normocephalic and Yes atraumatic Eyes General: appearance normal, both eyes and all related structures Pupils: Equal, round and reactive pupils present EOM: EOMs intact bilaterally Resp Effort & Inspection: normal respiratory effort Neuro General: patient oriented x3 and gait normal Cranial nerves: Yes Equal, round and reactive pupils present Psych Affect: normal affect Assessment and Plan Assessment & Plan (1) Hypertension: Code(s): I10 - Essential (primary) hypertension Qualifiers: Hypertension type: unspecified Qualified Code(s): I10 - Essential (primary) hypertension Plan: Blood?pressure?is?still?elevated?despite?amlodipine?given?to?her?at?the?ED?2?days?ago Continue?this?and?will?add?metoprolol?which?will?also?help?with?palpitations? (2) Chest discomfort: Code(s): R07.89 - Other chest pain Plan: Unclear?cause EKG,?chest?x-ray?and?troponin?levels?were?fine?at?the?ED?2?days?ago Possibly?secondary?to?GERD?or?esophageal?spasm Possibly?secondary?to?anxiety Did?not?check?D-dimer?or?rule?out?PE?so?I?have?ordered?this Trial?omeprazole Trial?metoprolol?for?palpitations (3) Epigastric pain: Code(s): R10.13 - Epigastric pain Plan: As?above,?trialing?omeprazole (4) Palpitations: Code(s): R00.2 - Palpitations Plan: Regular?rate?and?rhythm?to?auscultation. Heart?rate?at?higher?end?of?normal Trial?metoprolol Check?Holter?monitor?study (5) Anxiety: Code(s): F41.9 - Anxiety disorder, unspecified Plan: Patient?has?anxiety If?no?other?cause?is?found?this?would?be?likely?diagnosis Will?rule?out?other?causes?1st Following?up?with?patient?in?2?weeks Orders: Orders D Dimer High Sensitivity Today R00.2 - Palpitations Complete Blood Count Auto Diff Today R00.2 - Palpitations, Z00.00 - Encounter for general adult medical examination without abnormal findings Basic Metabolic Panel Today R00.2 - Palpitations, Z00.00 - Encounter for general adult medical examination without abnormal findings ECG holter monitor 48 hour Today R00.2 - Palpitations Medications: New metoprolol succinate ER 12.5 mg (1/2 x 25 mg) PO DAILY 90 days 45 tabs 2RF Coding Level of Care Code Est Pt Level 4 (68432) Diagnoses Hypertension, unspecified type I10 Hypertension type: unspecified Chest discomfort R07.89 Epigastric pain R10.13 Palpitations R00.2 Anxiety F41.9
[2024-04-24 09:49] VITALS: BP 140/90; PULSE 92; RESP 16; O2SAT 98; BMI 51.6
== END 2024-04-24 10:20 | disposition home or self-care (01) ==
PROVIDERS: PCP Family Medicine; Visit Provider Family Medicine
DX: I10 Essential (primary) hypertension (principal); R07.89 Other chest pain; R10.13 Epigastric pain; R00.2 Palpitations; F41.9 Anxiety disorder, unspecified
CPT/HCPCS: 99214

== ENCOUNTER 2024-04-24 10:26 | Outpatient (REF) | payer OTHER, SELFPAY ==
[2024-04-24 11:32] LABS: MANUAL DIFF FLAG NO
[2024-04-24 11:41] LABS: Basophils Percent Auto 0.4 % (0-2); Eosinophils Absolute Auto 0.2 X10*3/uL (0.0-0.4); Hematocrit 42.7 % (37.0-47.0); Hemoglobin 14.4 g/dl (12.0-16.0); Imm Gran Abs Auto 0.03 X10*3/uL (0.00-0.03); Imm Gran Pct Auto 0.4 % (0.0-0.4); Lymphocytes Absolute Auto 2.2 X10*3/uL (1.2-4.9); Lymphocytes Percent Auto 28.8 % (20-40); Mean Corpuscular HGB Conc 33.7 g/dl (31.0-35.0); Mean Corpuscular Hemoglobin 29.3 pg (27.0-33.0); Mean Platelet Volume 9.6 fL (9.4-12.3); Monocytes Absolute Auto 0.5 X10*3/uL (0.1-1.2); Monocytes Percent Auto 6.7 % (2-11); Neutrophils Absolute Auto 4.7 x10*3/uL (2.0-8.3); Neutrophils Percent Auto 61.7 % (45-73); Platelet Count 433 X10*3/uL (160-400); Red Blood Count 4.91 X10*6/uL (4.20-5.50); Red Cell Distribution Width 13.8 % (11.0-16.0); White Blood Count 7.6 X10*3/uL (4.8-10.8)
[2024-04-24 11:49] LABS: D Dimer High Sensitivity 206 NG/ML
[2024-04-24 12:15] LABS: Anion Gap 14 (12-20); Blood Urea Nitrogen 12 mg/dL (9-16); Calcium 9.2 mg/dL (8.4-10.2); Carbon Dioxide 23 mmol/L (22-29); Chloride 107 mmol/L (96-108); Estimated Glomerular Filt Rate > 60; Glucose Random 104 mg/dL (60-115); Potassium 3.7 mmol/L (3.3-5.1); Sodium 140 mmol/L (135-145)
== END 2024-04-24 10:27 | disposition home or self-care (01) ==
LOC: HO.WFDLDS 10:26
PROVIDERS: Visit Provider Family Medicine
DX: Z00.00 Encounter for general adult medical examination without abnormal findings (principal); R00.2 Palpitations
CPT/HCPCS: 36415; 80048; 85025; 85379

== ENCOUNTER 2024-05-13 14:43 | Outpatient (AMB) | payer OTHER, SELFPAY ==
[2024-05-13 14:46] VITALS: BP 140/82; PULSE 80; O2SAT 99; BMI 52.7
--- NOTE | 2024-05-13 14:46 | MHC.PC.OV ---
Vital Signs 05/13/24 14:46 Height 5 ft 3 in Weight 297 lb 6 oz BMI 52.7 BP 140/82 H Blood Pressure Location Lt brachial Position Sitting Pulse 80 Pulse Source Pulse Oximeter Pulse Oximetry (%) 99 Oxygen Delivery Method Room Air Intake Visit Reasons: f/u chest discomfort Intake Note: Patient is here to follow up on meds for chest discomfort, anxiety. Allergies bees Allergy (Mild, Uncoded 04/24/24 09:54) Swelling Medication List - Last Reconciled 05/13/24 by Phuc Grewal MD albuterol sulfate 90 mcg/actuation (Ventolin HFA) 2 puffs inhalation Q4H PRN 30 days amlodipine 5 mg PO DAILY fluticasone propionate 100 mcg/actuation 1 inh inhalation Q12H 30 days hydroxyzine pamoate 100 mg (2 x 50 mg) PO BEDTIME 30 days ibuprofen 800 mg PO Q8H PRN 14 days lidocaine 4% 1 appl topical TID PRN 30 days metoprolol succinate ER 12.5 mg (1/2 x 25 mg) PO DAILY 90 days omeprazole 40 mg PO DAILY 30 days valacyclovir 1,000 mg PO DAILY Tobacco use date assessed: 05/13/24 Dental Screening Dental Screen Date: 03/15/24 HPI f/u chest discomfort HPI Details 28 y/o female presents to f/u chest discomfort/palpitations. Trialing metoprolol and had ordered a Holter monitor test. Also trialing omeprazole. Pt notes she has not taken her medication regimen in the last few days as she had been depressed and forgotten them. PHQ-9 9, MARY ALICE-7 20 today. Blood pressure today 140/82. She is on amlodipine 5mg, metoprolol 12.5mg daily. She did note metoprolol had helped improve her palpitations. Pt reports ongoing anxiety/depression. She reports fatigue and reports she gets shaky whenever she gets tired. She denies any symptoms of sleep apnea. Pt has questions about control. HPI Comments History of Present Illness Details Documentation assistance for Phuc Grewal MD, was provided by Tj Abernathy,[employer] on 05/13/2024 at 3:22 PM EST. I, Dr. Grewal, have read, observed, and verified documentation. [facility] Medical History Headache Degenerative disc disease, lumbar Degenerative disc disease, thoracic Anxiety Depression Bipolar 1 disorder Surgical History History of ear surgery History of wisdom tooth extraction Family History Mother Hypothyroid Gabriela's disease Arthritis Father No problems noted. Brother No problems noted. Sister No problems noted. Sister Bipolar 1 disorder Son No problems noted. Daughter No problems noted. Other Lymphoma Mental health disorder Prostate cancer Substance use disorder Social History Household Members: Spouse, Family and Children Household Members Other:: sister Housing: Other Do you presently have visiting nurse or other home services: No Alcohol intake: current Alcohol intake frequency: holidays/special occasions only Patient Tobacco Use Status: Former Tobacco user Tobacco use type: Cigarette e-Cigarette/Vaping Use: Currently Using Second Hand Smoke Exposure: Yes Substance Use Type: Marijuana service: No Current occupational status: employed and student Current occupation: [employer] Current occupational exposures/hazards: No Sexual orientation: Straight/Heterosexual Gender identity: Female Cognitive needs: No Hearing needs: No Vision needs: No Questionnaire PHQ-9 Over the last 2 weeks, how often have you been bothered by any of the following problems? 1. Little interest or pleasure in doing things: several days 2. Feeling down, depressed, or hopeless: several days 3. Trouble falling or staying asleep, or sleeping too much: not at all 4. Feeling tired or having little energy: not at all 5. Poor appetite or overeating: several days 6. Feeling bad about yourself - or that you are a failure or have let yourself or your family down: not at all 7. Trouble concentrating on things, such as reading the newspaper or watching television: nearly every day 8. Moving or speaking so slowly that other people could have noticed. Or the opposite - being so fidgety or restless that you have been moving around a lot more than usual: nearly every day 9. Thoughts that you would be better off or of hurting yourself in some way: not at all Total score: 9 Depression Screening Interpretation: Positive Depression Screening Done: Yes Source: Developed by Drs. Tato Jenkins, Shira Barron, Tacho Khalil and colleagues, with an educational zheng from [employer]. Thrive Questionnaire Date Thrive assessed: 03/28/22 MARY ALICE-7 AMB Questionnaire MARY ALICE-7 Date MARY ALICE - 7 assessed: 05/13/24 Feeling nervous, anxious, or on edge: 3 = Nearly every day Not being able to stop or control worryin = More than half the days Worrying too much about different things: 3 = Nearly every day Trouble relaxin = Nearly every day Being so restless that it is hard to sit still: 3 = Nearly every day Becoming easily annoyed or irritable: 3 = Nearly every day Feeling afraid as if something awful might happen: 3 = Nearly every day Total MARY ALICE-7 score (0-4 normal; 5-9 mild; 10-14 moderate; 15-21 severe): 20 Source: Developed by Drs. Tato Jenkins, Shira Barron, Tacho Khalil and colleagues, with an educational zheng from [employer]. Review of Systems Const Denies chills, Denies fatigue, Denies fever(s), Denies headache(s) and Denies weakness ENT Denies dizziness and Denies headache(s) Card Denies dyspnea Resp Denies cough, Denies dyspnea, Denies wheezing and Denies other (shortness of breath) Musc Denies numbness and Denies tingling Neuro Denies dizziness, Denies headache(s), Denies numbness, Denies tingling and Denies weakness Psych Reports anxiety and Reports depression Endo Denies fatigue Aller/Immun Denies wheezing Physical exam (Primary Care) Vital Signs: Last Vital Signs Pulse 80 05/13/24 14:46 BP 140/82 H 05/13/24 14:46 Pulse Ox 99 05/13/24 14:46 Oxygen Delivery Method Room Air 05/13/24 14:46 BMI result Body Mass Index 52.7 Tobacco/Smoking Status: Tobacco use Status Tobacco use date assessed 05/13/24 05/13/24 15:01 Patient Tobacco Use Status Former Tobacco user 05/13/24 14:49 Tobacco use type Cigarette 05/13/24 14:49 e-Cigarette/Vaping Use Currently Using 05/13/24 14:49 PHQ-9: PHQ-9 Score PHQ-9: Total score 9 07/01/24 15:01 Depression Screening Interpretation: Positive Thrive Assessment: Date of Thrive Assessment Date Thrive assessed 03/28/22 05/13/24 14:49 Const General: well developed; No acute distress Nutritional Appearance: well nourished and obese morbidly obese Orientation/consciousness: patient oriented x3 [facility] Head: Yes normocephalic and Yes atraumatic Eyes General: appearance normal, both eyes and all related structures Pupils: Equal, round and reactive pupils present EOM: EOMs intact bilaterally Resp Effort & Inspection: normal respiratory effort Auscultation: clear to auscultation bilaterally Cardio Rate: regular rate Rhythm: regular rhythm Heart sounds: S1 normal heart sound present, S2 normal heart sound present, no gallops, no murmurs and no rubs Neuro General: patient oriented x3 and gait normal Cranial nerves: Yes Equal, round and reactive pupils present Psych Affect: normal affect Assessment and Plan Assessment & Plan (1) Chest discomfort: Code(s): R07.89 - Other chest pain Plan: This?was?improved?with?metoprolol Encouraged?her?to?continue?this (2) Palpitations: Code(s): R00.2 - Palpitations Plan: Improved (3) Anxiety with depression: Code(s): F41.8 - Other specified anxiety disorders Plan: Potentially?improved?with?metoprolol?as?well (4) Hypertension: Code(s): I10 - Essential (primary) hypertension Qualifiers: Hypertension type: unspecified Qualified Code(s): I10 - Essential (primary) hypertension Plan: Patient?notes?her?blood?pressures?were?improved?with?metoprolol.??She?has?not?been?taking?consistently?and?has?been?missing?last?few?days Encouraged?her?to?resume?this?and?continue?working?on?consistency (5) Family planning: Code(s): Z30.09 - Encounter for other general counseling and advice on contraception Plan: Has?tried?Depo?shot?in?the?past?but?did?not?like?it?because?it?caused?bleeding Will?try?the?patch Risks/benefits?were?discussed?with?patient?today. Orders: Orders Free T4 (Free Thyroxine) Today E03.9 - Hypothyroidism, unspecified UA and rflx microscopic Today Z00.00 - Encounter for general adult medical examination without abnormal findings Microalbumin, Random (w Creat) Today I10 - Essential (primary) hypertension Lipid Panel Today Z00.00 - Encounter for general adult medical examination without abnormal findings Comprehensive [place]. Panel Fast Today Z00.00 - Encounter for general adult medical examination without abnormal findings Complete Blood Count Auto Diff Today Z00.00 - Encounter for general adult medical examination without abnormal findings Thyroid Stimulating Hormone Today E03.9 - Hypothyroidism, unspecified Triiodothyronine T3 Total Today E03.9 - Hypothyroidism, unspecified Medications: New norelgestromin-ethin.estradiol 150-35 mcg/24 hr (Xulane) apply once weekly for 3 weeks of a 4-week cycle 1 patch transdermal Q7D 3 ea 3RF 28 days Coding Level of Care Code Est Pt Level 4 (78568) Diagnoses Chest discomfort R07.89 Palpitations R00.2 Anxiety with depression F41.8 Hypertension, unspecified type I10 Hypertension type: unspecified Family planning Z30.09
== END 2024-05-13 15:57 | disposition home or self-care (01) ==
PROVIDERS: PCP Family Medicine; Visit Provider Family Medicine
DX: R07.89 Other chest pain (principal); R00.2 Palpitations; F41.8 Other specified anxiety disorders; I10 Essential (primary) hypertension; Z30.09 Encounter for other general counseling and advice on contraception
CPT/HCPCS: 99214

== ENCOUNTER → 2024-05-14 13:09 | Outpatient (REF) | payer OTHER, SELFPAY ==
--- NOTE | 2024-05-14 13:20 | HM_ITS ---
* Total monitoring time 3 days. * Underlying rhythm is sinus with an average rate of 81/Min. * No significant supraventricular or ventricular ectopy. * No significant pauses or AV blocks. * No patient markers or diary events. MTDD
[2024-05-14 13:30] LABS: MANUAL DIFF FLAG NO
[2024-05-14 13:39] LABS: Basophils Percent Auto 0.6 % (0-2); Eosinophils Absolute Auto 0.2 X10*3/uL (0.0-0.4); Eosinophils Percent Auto 2.5 % (0-4); Hematocrit 41.6 % (37.0-47.0); Imm Gran Abs Auto 0.02 X10*3/uL (0.00-0.03); Imm Gran Pct Auto 0.3 % (0.0-0.4); Lymphocytes Absolute Auto 2.2 X10*3/uL (1.2-4.9); Mean Corpuscular HGB Conc 33.7 g/dl (31.0-35.0); Mean Corpuscular Hemoglobin 29.2 pg (27.0-33.0); Mean Corpuscular Volume 86.7 fL (80.0-98.0); Monocytes Absolute Auto 0.5 X10*3/uL (0.1-1.2); Monocytes Percent Auto 6.7 % (2-11); Neutrophils Absolute Auto 3.8 x10*3/uL (2.0-8.3); Neutrophils Percent Auto 56.9 % (45-73); Platelet Count 359 X10*3/uL (160-400); Red Cell Distribution Width 13.4 % (11.0-16.0); White Blood Count 6.8 X10*3/uL (4.8-10.8)
[2024-05-14 14:08] LABS: Appearance Urine Clear; Color Urine Yellow; Glucose Urine UA Negative (Negative); Leukocyte Esterase Urine Negative (Negative); Nitrite Urine Negative (Negative); PH 5.5 (5.0-9.0); Specific Gravity - Urine 1.025 (1.005-1.025); UMIC TRIGGER UA YES; Urine Blood Moderate (2+) (Negative); Urine Ketones Negative (Negative); Urine Protein Negative (Neg-Trace)
[2024-05-14 14:16] LABS: Bacteria Urine None Seen (None Seen); Hyaline Casts Urine 0-2 /LPF (0-2); RBC Urine >20 /HPF (0-2); WBC Urine 0-5 /HPF (0-5)
[2024-05-14 14:28] LABS: Alanine Aminotransferase 20 U/L (0-31); Albumin Level 3.9 g/dL (3.5-5.0); Alkaline Phosphatase 62 U/L (39-117); Anion Gap 10 (12-20); Aspartate Amino Transferase 20 U/L (5-31); Bilirubin Total 0.4 mg/dL (0.0-1.0); Blood Urea Nitrogen 17 mg/dL (9-16); Calcium 8.8 mg/dL (8.4-10.2); Carbon Dioxide 25 mmol/L (22-29); Chloride 109 mmol/L (96-108); Cholesterol 179 mg/dL (<200); Estimated Glomerular Filt Rate > 60; Glucose Fasting 116 mg/dL (60-99); HDL Cholesterol 45 mg/dL (>40); LDL Cholesterol Calculated 117 mg/dL (<100); Potassium 4.1 mmol/L (3.3-5.1); Sodium 140 mmol/L (135-145); Triglycerides 85 mg/dL (<150)
[2024-05-14 14:44] LABS: Free T4 (Free Thyroxine) 0.86 ng/dL (0.71-1.85); Thyroid Stimulating Hormone 1.91 uIU/mL (0.32-4.0)
[2024-05-14 18:40] LABS: Creatinine Urine 190.71 mg/dL; Microalbum/Creatinine Ratio Ur 6.8 ug/mg cr (<30)
[2024-05-15 08:13] LABS: Triiodothyronine T3 Total 107 ng/dL (76-181)
== END ==
LOC: HO.CARD 13:09
PROVIDERS: PCP Family Medicine; Visit Provider Family Medicine
DX: R00.2 Palpitations (principal); I10 Essential (primary) hypertension; E03.9 Hypothyroidism, unspecified; Z00.00 Encounter for general adult medical examination without abnormal findings
CPT/HCPCS: 36415; 80053; 80061; 81001; 82043; 82570; 84439; 84443; 84480; 85025; 93225

== ENCOUNTER → 2024-05-14 13:20 | Outpatient (BNV) | payer OTHER, SELFPAY | PROVIDERS: PCP Family Medicine; Visit Provider Internal Medicine | DX: R00.0 Tachycardia, unspecified (principal) | CPT/HCPCS: 93244 ==

== ENCOUNTER → 2024-06-17 15:56 | Outpatient (AMB) | payer OTHER, SELFPAY ==
--- NOTE | 2024-06-17 15:49 | A.OFFPC_ITS ---
Intake Visit Reasons: f/u palpitations via telemedicine Intake Note: follow up on palpatation Allergies bees Allergy (Mild, Uncoded 04/24/24 09:54) Swelling Tobacco use date assessed: 05/13/24 Dental Screening Dental Screen Date: 03/15/24 HPI f/u palpitations via telemedicine HPI Details 29 y/o female presents to review lab wor k and holter monitor test. Labs drawn 05/14/24. Reviewed labs with pt. Elevated fasting glucose of 116. Triglycerides 85. TC 179. LDL 117. HDL 45. Holter monitor test 05/14/24 was fine. She notes fatigue/palpitations seems to have improved as she had not been feeling as anxious. She does have a therapist. She reports hx of degenerative disc disease. She reports tingling of her extremities. [facility] Medical History Headache Degenerative disc disease, lumbar Degenerative disc disease, thoracic Anxiety Depression Bipolar 1 disorder Surgical History History of ear surgery History of wisdom tooth extraction Family History Mother Hypothyroid Gabriela's disease Arthritis Father No problems noted. Brother No problems noted. Sister No problems noted. Sister Bipolar 1 disorder Son No problems noted. Daughter No problems noted. Other Lymphoma Mental health disorder Prostate cancer Substance use disorder Social History Household Members: Spouse, Family and Children Household Members Other:: sister Housing: Other Do you presently have visiting nurse or other home services: No Alcohol intake: current Alcohol intake frequency: holidays/special occasions only Patient Tobacco Use Status: Former Tobacco user Tobacco use type: Cigarette e-Cigarette/Vaping Use: Currently Using Second Hand Smoke Exposure: Yes Substance Use Type: Marijuana service: No Current occupational status: employed and student Current occupation: [employer] Current occupational exposures/hazards: No Sexual orientation: Straight/Heterosexual Gender identity: Female Cognitive needs: No Hearing needs: No Vision needs: No Questionnaire Thrive Questionnaire Date Thrive assessed: 03/28/22 MARY ALICE-7 AMB Questionnaire MARY ALICE-7 Date MARY ALICE - 7 assessed: 05/13/24 Source: Developed by Shira Montanez [employer], Tacho Khalil and colleagues, with an educational zheng from [employer]. Review of Systems Const Denies chills, Denies fatigue, Denies fever(s), Denies headache(s) and Denies weakness ENT Denies dizziness and Denies headache(s) Card Denies dyspnea Resp Denies cough, Denies dyspnea, Denies wheezing and Denies other (shortness of breath) Musc Denies numbness and Denies tingling Neuro Denies dizziness, Denies headache(s), Denies numbness, Denies tingling and Denies weakness Psych Reports anxiety and Denies depression Endo Denies fatigue Aller/Immun Denies wheezing Physical exam (Primary Care) Tobacco/Smoking Status: Tobacco use Status Tobacco use date assessed 05/13/24 06/17/24 15:52 Patient Tobacco Use Status Former Tobacco user 06/17/24 15:52 Tobacco use type Cigarette 06/17/24 15:52 e-Cigarette/Vaping Use Currently Using 06/17/24 15:52 Thrive Assessment: Date of Thrive Assessment Date Thrive assessed 03/28/22 06/17/24 15:52 Telehealth Telehealth Telehealth Platform: Telephone Location of provider rendering services: practice address Location of patient: address on file Patient Identification confirmed using: Name, : Yes Telehealth method: voice only Patient verbally consented to treatment: Yes Patient verbally consented to billing insurance company: Yes Patient informed of any privacy concerns related to visit: Yes Minutes spent on Phone/Video with Pt.: 12 Assessment and Plan Assessment & Plan (1) Anxiety: Code(s): F41.9 - Anxiety disorder, unspecified Plan: This?has?improved?with?improvement?of?palpitations She?takes?metoprolol?when?she?is?anxious?or?has?symptoms Can?continue?metoprolol Has?a?therapist?and?I?encouraged?her?to?work?with?her?therapist?as?well (2) Elevated fasting glucose: Code(s): R73.01 - Impaired fasting glucose Plan: Encouraged?a?diet?low?in?sugars?and?starches,?exercise?and?weight?loss Will?recheck?prior?to?next?visit (3) Palpitations: Code(s): R00.2 - Palpitations Plan: This?seems?to?have?improve/resolved She?can?continue?to?use?metoprolol?when?she?has?any?symptom (4) Elevated LDL cholesterol level: Code(s): E78.00 - Pure hypercholesterolemia, unspecified Plan: Encouraged?a?diet?lower?in?saturated?fats?and?cholesterol,?exercise?and?weight?l oss Will?recheck?prior?to?next?visit (5) Cervicalgia: Code(s): M54.2 - Cervicalgia Plan: Neck?and?back?pain History?of?some?degenerative?discs?with?prior?neurosurgeon. Starting?with?referral?to?physiatry?and?we?can?follow-up?on?how?she?is?doing (6) Back pain: Code(s): M54.9 - Dorsalgia, unspecified Plan: As?above (7) Fatigue: Code(s): R53.83 - Other fatigue Plan: Patient?notes?this?has?improved?with?improvement?of?her?anxiety Lab?work?was?unremarkable Orders: Orders Lipid Panel Today E78.00 - Pure hypercholesterolemia, unspecified, Z00.00 - Encounter for general adult medical examination without abnormal findings Hemoglobin A1c Today R73.01 - Impaired fasting glucose Comprehensive [place]. Panel Fast Today E78.00 - Pure hypercholesterolemia, unspecified, Z00.00 - Encounter for general adult medical examination without abnormal findings Referrals Physiatry Referral M54.2 - Cervicalgia, M54.9 - Dorsalgia, unspecified Coding Level of Care Code Tele Est Pt Level 2 (05289) Diagnoses Anxiety F41.9 Elevated fasting glucose R73.01 Palpitations R00.2 Elevated LDL cholesterol level E78.00 Cervicalgia M54.2 Back pain M54.9 Fatigue R53.83
== END ==
PROVIDERS: PCP Family Medicine; Visit Provider Family Medicine
DX: R00.2 Palpitations (principal); F41.9 Anxiety disorder, unspecified; R73.01 Impaired fasting glucose; E78.00 Pure hypercholesterolemia, unspecified; M54.2 Cervicalgia; M54.9 Dorsalgia, unspecified; R53.83 Other fatigue
CPT/HCPCS: 99212

== ENCOUNTER 2024-07-17 11:11 | Outpatient (AMB) | payer OTHER, SELFPAY ==
--- NOTE | 2024-07-17 11:26 | MHC.OFFWIV ---
Intake Vital Signs 07/17/24 11:27 Height 5 ft 3 in Weight 298 lb 8 oz BMI 52.9 BP 136/88 Blood Pressure Location Lt brachial Position Sitting Pulse 76 Pulse Source Pulse Oximeter Temp 98.3 F Temp Source Oral Pulse Oximetry (%) 100 Oxygen Delivery Method Room Air Intake Visit Reasons: EP diff walking/severe back/neck pain Intake Note: Pt presents to the office today for c/o difficulty walking,neck pain, and lower back pain. Pt states this started a few months ago with no known injury. Pt states she does have degenerative disk disease. She states she was moving all of her things out of her house about week ago and since then the pain has worsened. Patient Tobacco Use Status: Former Tobacco user Allergies bees Allergy (Mild, Uncoded 07/17/24 11:29) Swelling HPI HPI Comments History of Present Illness Details Patient is a 21-year-old female complaining of low back pain since last night. She states she moved bunch of her belongings to a 3rd floor steroid unit about a week ago and that is when her back pain started. She states she woke up last night and had extreme pain in her lower back felt numbness and tingling in her legs and was unable to get out of bed. She eventually was able to get up and walk around her apartment. She denies any loss of control of her bladder or bowels. She states she has degenerative disc disease as seen on an MRI a few years ago. She takes Tylenol and ibuprofen to manage her pain typically but that did not work this morning. She has never had the pins and needles in her legs like she does now. She denies any shooting pain down the back of her legs. She is also stating her PCP was supposed to send a referral to a terminal make up operator and she has not heard back from them regarding an appointment in his asking me to inquire about that. FORMERLY [facility], [facility] Medical History Headache Degenerative disc disease, lumbar Degenerative disc disease, thoracic Anxiety Depression Bipolar 1 disorder Surgical History History of ear surgery History of wisdom tooth extraction Family History Mother Hypothyroid Gabriela's disease Arthritis Father No problems noted. Brother No problems noted. Sister No problems noted. Sister Bipolar 1 disorder Son No problems noted. Daughter No problems noted. Other Lymphoma Mental health disorder Prostate cancer Substance use disorder Social History Household Members: Spouse, Family and Children Household Members Other:: sister Housing: Other Do you presently have visiting nurse or other home services: No Alcohol intake: current Alcohol intake frequency: holidays/special occasions only Patient Tobacco Use Status: Former Tobacco user Tobacco use type: Cigarette e-Cigarette/Vaping Use: Currently Using Second Hand Smoke Exposure: Yes Substance Use Type: Marijuana service: No Current occupational status: employed and student Current occupation: [employer] Current occupational exposures/hazards: No Sexual orientation: Straight/Heterosexual Gender identity: Female Cognitive needs: No Hearing needs: No Vision needs: No Review of Systems Const All systems reviewed & are unremarkable except as noted in HPI and below Physical Exam Vital Signs: Last Vital Signs Temp 98.3 F 07/17/24 11:27 Pulse 76 07/17/24 11:27 BP 136/88 07/17/24 11:27 Pulse Ox 100 07/17/24 11:27 Oxygen Delivery Method Room Air 07/17/24 11:27 BMI result Body Mass Index 52.9 Const General: cooperative, healthy appearing and comfortable Orientation/consciousness: patient oriented x3 HEENT Head: Yes normal to inspection and Yes normocephalic General nose exam: Normal external nose present Face and sinus: Yes normal facial exam Eyes General: appearance normal, both eyes and all related structures Resp Effort & Inspection: normal respiratory effort and able to speak in complete sentences Back/Spine/Pelvis Cervical Spine: cervical ROM normal, cervical muscular tenderness and No Cervical spine tenderness Thoracic/Lumbar Spine: thoracic and lumbar spine normal to inspection, pain with thoraco-lumbar ROM, paraspinal muscle tenderness bilaterally, No thoracic spinal tenderness and No lumbar spinal tenderness Neuro General: patient oriented x3 Extrem Other: Straight leg raise test negative on right; Straight leg raise test negative on left; motor strength normal bilaterally lower extremity, sensation intact bilateral lower extremity Assessment & Plan Assessment & Plan (1) Back pain: Code(s): M54.9 - Dorsalgia, unspecified Plan: Send note to PCP to follow up on referral to [facility]. Sent prednisone to pharmacy, gave red flag warning signs and when to go to the emergency department, recommended using Aleve as well as ice/heat. Plan see above Medications: New prednisone 40 mg (2 x 20 mg) PO DAILY 10 tabs 0RF Coding Level of Care Code Est Pt Level 4 (64218) Diagnoses Back pain M54.9
[2024-07-17 11:27] VITALS: BP 136/88; PULSE 76; TEMP 36.8; O2SAT 100; BMI 52.9
== END 2024-07-17 11:52 | disposition home or self-care (01) ==
PROVIDERS: PCP Family Medicine; Visit Provider Physician Assistant
DX: M54.9 Dorsalgia, unspecified (principal)
CPT/HCPCS: 99214

== ENCOUNTER 2024-07-20 19:59 | Emergency (ER) | payer OTHER, SELFPAY ==
[2024-07-20 20:01] VITALS: BP 157/101; PULSE 112; RESP 20; TEMP 36.9; O2SAT 98; BMI 51.3
[2024-07-20 21:11] VITALS: BP 136/85; PULSE 80; RESP 16; TEMP 36.7; O2SAT 98
[2024-07-20 22:00] VITALS: BP 117/70; PULSE 78; RESP 16; TEMP 36.9; O2SAT 96
--- NOTE | 2024-07-20 22:47 | ED_ITS ---
HPI - Allergic Reaction General Chief complaint: Allergic Reaction Stated complaint: allergic reaction Time Seen by Provider: 07/20/24 22:21 Source: patient Mode of arrival: ambulatory Limitations: no limitations History of Present Illness ED Provider: julissa WORTHY narrative: Patient is taking prednisone for last 3 days fell degenerative joint disease for pain in the neck and the arm today just prior to arrival patient noticed hives which got better off its own without any medication no history of prior allergic reaction like this in the past Related Data Home Medications ?Medication ?Instructions ?Recorded ?Confirmed valacyclovir 1 gram tablet 1,000 mg PO DAILY 03/15/24 05/13/24 Previous Rx's ?Medication ?Instructions ?Recorded albuterol sulfate 90 mcg/actuation 2 puff inhalation Q4H PRN 03/15/24 aerosol inhaler (Ventolin HFA) Shortness Of Breath 30 days #1 inhaler ibuprofen 800 mg tablet 800 mg PO Q8H PRN pain 14 days #42 03/15/24 tabs metoprolol succinate 25 mg 12.5 mg (1/2 x 25 mg) PO DAILY 90 04/24/24 tablet,extended release 24 hr days #45 tabs hydroxyzine pamoate 50 mg capsule 100 mg (2 x 50 mg) PO BEDTIME 30 05/25/24 days #60 caps omeprazole 40 mg capsule,delayed 40 mg PO DAILY 30 days #30 caps 05/25/24 release amlodipine 5 mg tablet 5 mg PO DAILY #30 tabs 07/09/24 norelgestromin 150 mcg-e.estradiol 1 patch transdermal Q7D 28 days #3 07/09/24 35 mcg/24 hr weekly transderm ea patch (Xulane) fluticasone propionate 100 1 inh inhalation Q12H 30 days #60 07/10/24 mcg/actuation blister powder for ea inhalation prednisone 20 mg tablet 40 mg (2 x 20 mg) PO DAILY #10 tabs 07/17/24 Allergies Allergy/AdvReac Type Severity Reaction Status Date / Time bees Allergy Mild Swelling Uncoded 07/20/24 20:02 Review of Systems Review of Systems: Yes all other systems are reviewed and are negative PMFSH Past Medical History Medical History Headache Degenerative disc disease, lumbar Degenerative disc disease, thoracic Anxiety Depression Bipolar 1 disorder Surgical History History of ear surgery History of wisdom tooth extraction Family History Family History Mother Hypothyroid Gabriela's disease Arthritis Father No problems noted. Brother No problems noted. Sister No problems noted. Sister Bipolar 1 disorder Son No problems noted. Daughter No problems noted. Other Lymphoma Mental health disorder Prostate cancer Substance use disorder Social History Social History Household Members: Spouse, Family and Children Household Members Other:: sister Housing: Other Do you presently have visiting nurse or other home services: No Alcohol intake: current Alcohol intake frequency: holidays/special occasions only Patient Tobacco Use Status: Former Tobacco user Tobacco use type: Cigarette Smoked in Last 30 Days: No e-Cigarette/Vaping Use: Currently Using Second Hand Smoke Exposure: Yes Substance Use Type: Marijuana Advance Directives: No Advance Directives Information Provided: No Do you have a plan to hurt others: No Plan Patient : No service: No Current occupational status: employed and student Current occupation: [employer] Current occupational exposures/hazards: No Sexual orientation: Straight/Heterosexual Gender identity: Female Cognitive needs: No Hearing needs: No Vision needs: No Physical Exam ED Vital Signs: Vital Signs - 24 hr 07/20/24 20:01 07/20/24 21:11 07/20/24 22:00 Temperature 98.5 F 98.1 F 98.4 F Pulse Rate 112 H 80 78 Respiratory Rate 20 16 16 Blood Pressure 157/101 H 136/85 117/70 Pulse Oximetry 98 98 96 Oxygen Delivery Method Room Air Room Air Room Air 07/20/24 23:00 Temperature 98.4 F Pulse Rate 78 Respiratory Rate 16 Blood Pressure 117/70 Pulse Oximetry 96 Oxygen Delivery Method Room Air BMI result Body Mass Index 51.3 Appearance: Alert. Oriented X3. No acute distress. Eyes: PERRLA, No Nystagmus ENT: Pharynx normal. Oral Mucosa moist Neck: Normal inspection. Neck supple. No stridor CVS: Normal heart rate and rhythm. Pulses normal. Respiratory: No respiratory distress. Equal air entry bilateral, no wheezing/rales/rhonchi Abdomen: Soft and nontender. Bowel sounds are present, no mass palpable, no CVA tenderness Skin: Skin warm and dry. Normal skin color. Normal skin turgor. Extremities: No lower extremity edema. No calf tenderness Neuro: Oriented X 3. No motor deficit. Medical Decision Making Medical Decision Making MDM Narrative: Patient's allergic reaction to unknown agent no rash in the ER when examined will will advised patient to take hydroxyzine for urticarial rash Discharge Plan Discharge Clinical Impression: Urticaria Patient Disposition: Home, Self-Care Instructions: Urticaria (ED) Additional Instructions: Cause of your rash is not clear prednisone really cause urticaria rash Take hydroxyzine every 6-8 hours as needed for the itching/rash Prescriptions: No Action hydroxyzine pamoate 50 mg capsule 100 mg PO BEDTIME 30 Days Qty: 60 0RF Patient Comments: 50 mg or 100 mg prn omeprazole 40 mg capsule,delayed release(DR/EC) 40 mg PO DAILY 30 Days Qty: 30 1RF amlodipine 5 mg tablet 5 mg PO DAILY Qty: 30 0RF norelgestromin-ethin.estradiol [Xulane] 150-35 mcg/24 hr patch weekly 1 patch transdermal Q7D 28 Days Qty: 3 3RF Rx Instructions: apply once weekly for 3 weeks of a 4-week cycle fluticasone propionate 100 mcg/actuation blister with device 1 inh inhalation Q12H 30 Days Qty: 60 0RF valacyclovir 1 gram tablet 1,000 mg PO DAILY albuterol sulfate [Ventolin HFA] 90 mcg/actuation HFA aerosol inhaler 2 puff inhalation Q4H PRN (Reason: Shortness Of Breath) 30 Days Qty: 1 3RF ibuprofen 800 mg tablet 800 mg PO Q8H PRN (Reason: pain) 14 Days Qty: 42 0RF Rx Instructions: Do not take if in a 3rd trimester of a . metoprolol succinate 25 mg tablet extended release 24 hr 12.5 mg PO DAILY 90 Days Qty: 45 2RF prednisone 20 mg tablet 40 mg PO DAILY Qty: 10 0RF Stand Alone Forms: Work/School Release Interventions: ED Discharge Assessment Last Done: 07/20/24 23:00 Discharge Date/Time: 07/20/24 23:01 Print Language: Cuban
[2024-07-20 23:00] VITALS: BP 117/70; PULSE 78; RESP 16; TEMP 36.9; O2SAT 96
== END 2024-07-20 23:01 | disposition home or self-care (01) ==
PROVIDERS: Emergency Provider Internal Medicine; PCP Family Medicine
DX: L50.9 Urticaria, unspecified (principal); Z79.899 Other long term (current) drug therapy
CPT/HCPCS: 99282; 99284

== ENCOUNTER 2024-07-22 13:49 | Emergency (ER) | payer OTHER, SELFPAY ==
--- NOTE | ~2024-07-22 | CT_ITS ---
EXAMINATION: CT HEAD WITHOUT CONTRAST CT CERVICAL SPINE WITHOUT CONTRAST CLINICAL INFORMATION: Neck pain and numbness with tingling down arms. Migraines. COMPARISON: Head and cervical spine CT imaging from 02/20/2022. TECHNIQUE: Contiguous axial imaging was performed from the skullbase to vertex without intravenous administration of contrast. Multidetector helical imaging was performed through the cervical spine. This CT examination was performed using dose optimization techniques as appropriate, variously including the following: *Automated exposure control *Adjustment of mA and/or kV according to patient size (this includes techniques or standardized protocols for targeted exams where dose is matched to indication/reason for exam; i.e. extremities or head) *Use of iterative reconstruction technique DLP: 1408 mGy-cm. FINDINGS: HEAD: There is no evidence of acute intracranial hemorrhage or territorial infarction. No abnormal mass effect or midline shift is seen. [place] to white matter differentiation is well preserved. No extra-axial fluid collections are identified. The ventricles are normal in size. Brain parenchymal attenuation is normal. The osseous structures and soft tissues are normal. The mastoid air cells and visualized portions of the paranasal sinuses are well aerated. CERVICAL SPINE: No acute fracture or subluxation is identified in the cervical spine. The disc spaces are maintained. No large protrusion is seen. The atlantoaxial articulation is normally maintained. The paraspinal soft tissues are normal. Incidentally elongation of the styloid processes bilaterally. The lung apices are clear. CT/CT cervical spine wo IV con IMPRESSION: 1. No acute intracranial pathology. 2. No evidence of acute cervical spine traumatic injury. Electronically signed by: Kevin Burnham MD 07/22/2024 03:58 PM EDT
--- NOTE | ~2024-07-22 | CT_ITS ---
EXAMINATION: CT HEAD WITHOUT CONTRAST CT CERVICAL SPINE WITHOUT CONTRAST CLINICAL INFORMATION: Neck pain and numbness with tingling down arms. Migraines. COMPARISON: Head and cervical spine CT imaging from 02/20/2022. TECHNIQUE: Contiguous axial imaging was performed from the skullbase to vertex without intravenous administration of contrast. Multidetector helical imaging was performed through the cervical spine. This CT examination was performed using dose optimization techniques as appropriate, variously including the following: *Automated exposure control *Adjustment of mA and/or kV according to patient size (this includes techniques or standardized protocols for targeted exams where dose is matched to indication/reason for exam; i.e. extremities or head) *Use of iterative reconstruction technique DLP: 1408 mGy-cm. FINDINGS: HEAD: There is no evidence of acute intracranial hemorrhage or territorial infarction. No abnormal mass effect or midline shift is seen. Gilmore to white matter differentiation is well preserved. No extra-axial fluid collections are identified. The ventricles are normal in size. Brain parenchymal attenuation is normal. The osseous structures and soft tissues are normal. The mastoid air cells and visualized portions of the paranasal sinuses are well aerated. CERVICAL SPINE: No acute fracture or subluxation is identified in the cervical spine. The disc spaces are maintained. No large protrusion is seen. The atlantoaxial articulation is normally maintained. The paraspinal soft tissues are normal. Incidentally elongation of the styloid processes bilaterally. The lung apices are clear. CT/CT head/brain wo IV con IMPRESSION: 1. No acute intracranial pathology. 2. No evidence of acute cervical spine traumatic injury. Electronically signed by: Kevin Burnham MD 07/22/2024 03:58 PM EDT
[2024-07-22 14:00] VITALS: BP 192/119; PULSE 106; RESP 18; TEMP 36.9; O2SAT 98; BMI 59.9
--- NOTE | 2024-07-22 14:03 | ED_ITS ---
HPI - General Adult General Chief complaint: General Medical Stated complaint: feeling like pin and needles all over not thinking Time Seen by Provider: 07/23/24 00:59 Source: patient Mode of arrival: ambulatory Limitations: no limitations History of Present Illness ED Provider: julissa WORTHY narrative: Patient is 29 years with history of anxiety/bipolar disorder HLA B27 positive in the mother comes here for multiple complaints more for more than 6 months having off and on tingling sensation of all over the body no weakness no headache no rash no sensory or motor loss no history of tick-borne disease does have a family history of multiple sclerosis in her uncle Related Data Home Medications ?Medication ?Instructions ?Recorded ?Confirmed valacyclovir 1 gram tablet 1,000 mg PO DAILY 03/15/24 05/13/24 Previous Rx's ?Medication ?Instructions ?Recorded albuterol sulfate 90 mcg/actuation 2 puff inhalation Q4H PRN 03/15/24 aerosol inhaler (Ventolin HFA) Shortness Of Breath 30 days #1 inhaler ibuprofen 800 mg tablet 800 mg PO Q8H PRN pain 14 days #42 03/15/24 tabs metoprolol succinate 25 mg 12.5 mg (1/2 x 25 mg) PO DAILY 90 04/24/24 tablet,extended release 24 hr days #45 tabs hydroxyzine pamoate 50 mg capsule 100 mg (2 x 50 mg) PO BEDTIME 30 05/25/24 days #60 caps omeprazole 40 mg capsule,delayed 40 mg PO DAILY 30 days #30 caps 05/25/24 release amlodipine 5 mg tablet 5 mg PO DAILY #30 tabs 07/09/24 norelgestromin 150 mcg-e.estradiol 1 patch transdermal Q7D 28 days #3 07/09/24 35 mcg/24 hr weekly transderm ea patch (Xulane) fluticasone propionate 100 1 inh inhalation Q12H 30 days #60 07/10/24 mcg/actuation blister powder for ea inhalation prednisone 20 mg tablet 40 mg (2 x 20 mg) PO DAILY #10 tabs 07/17/24 gabapentin 300 mg capsule 300 mg PO BEDTIME #90 caps 07/23/24 Allergies Allergy/AdvReac Type Severity Reaction Status Date / Time bees Allergy Mild Swelling Uncoded 07/22/24 14:06 Review of Systems 2 Review of Systems: Yes all other systems are reviewed and are negative PMFSH Past Medical History Medical History Headache Degenerative disc disease, lumbar Degenerative disc disease, thoracic Anxiety Depression Bipolar 1 disorder Surgical History History of ear surgery History of wisdom tooth extraction Family History Family History Mother Hypothyroid Gabriela's disease Arthritis Father No problems noted. Brother No problems noted. Sister No problems noted. Sister Bipolar 1 disorder Son No problems noted. Daughter No problems noted. Other Lymphoma Mental health disorder Prostate cancer Substance use disorder Social History Social History Household Members: Spouse, Family and Children Household Members Other:: sister Housing: Other Do you presently have visiting nurse or other home services: No Alcohol intake: current Alcohol intake frequency: holidays/special occasions only Patient Tobacco Use Status: Former Tobacco user Tobacco use type: Cigarette Smoked in Last 30 Days: No e-Cigarette/Vaping Use: Currently Using Second Hand Smoke Exposure: Yes Substance Use Type: Marijuana Advance Directives: No Advance Directives Information Provided: No Do you have a plan to hurt others: No Plan service: No Current occupational status: employed and student Current occupation: [employer] Current occupational exposures/hazards: No Sexual orientation: Straight/Heterosexual Gender identity: Female Cognitive needs: No Hearing needs: No Vision needs: No Physical Exam ED Vital Signs: Vital Signs - 24 hr 07/22/24 14:00 07/22/24 21:25 07/23/24 00:06 Temperature 98.4 F 97.5 F 97.7 F Pulse Rate 106 H 76 82 Respiratory Rate 18 20 18 Blood Pressure 192/119 H 161/99 H 162/97 H Pulse Oximetry 98 99 98 Oxygen Delivery Method Room Air Room Air Room Air BMI result Body Mass Index 59.9 Appearance: Alert. Oriented X3. No acute distress. Eyes: PERRLA, No Nystagmus ENT: Pharynx normal. Oral Mucosa moist Neck: Normal inspection. Neck supple. CVS: Normal heart rate and rhythm. Pulses normal. Respiratory: No respiratory distress. Equal air entry bilateral, no wheezing/rales/rhonchi Abdomen: Soft and nontender. Bowel sounds are present, no mass palpable, no CVA tenderness Skin: Skin warm and dry. Normal skin color. Normal skin turgor. Extremities: No lower extremity edema. No calf tenderness Neuro: Oriented X 3. No motor deficit. No sensory deficit.No cerebellar signs , cranial nerves II-XII intact Course Course Course Narrative: This is an RME: Additional HPI, ROS, PE not included below will be deferred to primary provider. RME assessment and note performed by: Joellen Bliss PA-C This is a 16-ezuh-ipn-female, with a hx of PCOS, hypothyroidism, who prsents to the ER with complaints of migraines x 6 months, worsening over the last several months. Reports that she has had difficulties with Pt also having difficulties with balance. Reporting some numbness/tingling in her bilateral arms. Also reporting constant CP x 2 months. Medical Decision Making Medical Decision Making [facility] Narrative: Patient with multiple complaints no objective findings at this time workup essentially negative CT scan of the head is negative C-spine also negative patient needs further evaluation for polyneuropathy advised to follow with neurologist/senior electrical controls engineer Differential Diagnosis Differential Diagnoses: The differential diagnosis associated with the presentation includes Polyneuropathy/malingering disease/anxiety/Lyme disease Lab Data [facility] Lab Attestation statement: I reviewed the patient's lab results. 07/22/24 14:41 07/22/24 14:41 Labs: Lab Results 07/22/24 Range/Units 14:41 WBC 11.8 H (4.8-10.8) X10*3/uL RBC 4.64 (4.20-5.50) X10*6/uL Hgb 13.3 (12.0-16.0) g/dl Hct 39.7 (37.0-47.0) % MCV 85.6 (80.0-98.0) fL MCH 28.7 (27.0-33.0) pg MCHC 33.5 (31.0-35.0) g/dl RDW 13.5 (11.0-16.0) % Plt Count 366 (160-400) X10*3/uL MPV 9.2 L (9.4-12.3) fL Immature Gran % (Auto) 0.6 H (0.0-0.4) % Neut % (Auto) 64.7 (45-73) % Lymph % (Auto) 26.8 (20-40) % [place] % (Auto) 5.9 (2-11) % Eos % (Auto) 1.4 (0-4) % Baso % (Auto) 0.6 (0-2) % Lymph # (Auto) 3.2 (1.2-4.9) X10*3/uL [place] # (Auto) 0.7 (0.1-1.2) X10*3/uL Eos # (Auto) 0.2 (0.0-0.4) X10*3/uL Baso # (Auto) 0.1 (0.0-0.2) X10*3/uL Abs Immat Gran (auto) 0.07 H (0.00-0.03) X10*3/uL Absolute Neuts (auto) 7.6 (2.0-8.3) x10*3/uL Absolute Nucleated RBC 0.000 (0.0-0.012) X10*3/uL Nucleated RBC % (auto) 0.0 (0.0-0.2) /100WBC ESR 5 (0-20) MM/HR PT 11.0 L (11.1-13.3) SEC INR 0.9 (0.9-1.1) Sodium 139 (135-145) mmol/L Potassium 3.8 (3.3-5.1) mmol/L Chloride 109 H (96-108) mmol/L Carbon Dioxide 22 (22-29) mmol/L Anion Gap 12 (12-20) BUN 16 (9-16) mg/dL Creatinine 0.79 (0.5-1.4) mg/dL Estim Creat Clear Calc 166.6 Estimated GFR > 60 Random Glucose 150 H (60-115) mg/dL Calcium 8.8 (8.4-10.2) mg/dL Magnesium 2.2 (1.6-2.6) mg/dL Total Bilirubin 0.2 (0.0-1.0) mg/dL Direct Bilirubin < 0.2 (0.0-0.5) mg/dL AST 16 (5-31) U/L ALT 22 (0-31) U/L Alkaline Phosphatase 55 (39-117) U/L Troponin I High Sens < 2.7 (<3.5-17.0) ng/L C-Reactive Protein 0.43 (< or = 0.50) mg/dL Total Protein 6.9 (6.5-8.0) g/dL Albumin 3.8 (3.5-5.0) g/dL Lipase 18 (8-78) U/L TSH 1.73 (0.32-4.0) uIU/mL Beta HCG, Quant < 2 mIU/mL Urine Opiates Screen Not Detected (Not Detect) Ur Buprenorphine Scrn Not Detected (Not Detect) ng/mL Ur Oxycodone Screen Not Detected (Not Detect) ng/mL Urine Methadone Screen Not Detected (Not Detect) ng/mL Urine Fentanyl Screen Not Detected (Not Detect) Ur Barbiturates Screen Not Detected (Not Detect) Ur Phencyclidine Scrn Not Detected (Not Detect) Ur Amphetamines Screen Not Detected (Not Detect) U Benzodiazepines Scrn Not Detected (Not Detect) Urine Cocaine Screen Not Detected (Not Detect) U Marijuana (THC) Screen Not Detected (Not Detect) Discharge Plan Discharge Clinical Impression: Polyneuropathy Patient Disposition: Home, Self-Care Instructions: Peripheral Neuropathy (ED) Additional Instructions: Cause your symptoms are not very clear possible you have neuropathy need further evaluation and management Start taking gabapentin 300 mg every night for nerve pain Follow with neurologist/senior electrical controls engineer and PCP for further management Prescriptions: New gabapentin 300 mg capsule 300 mg PO BEDTIME Qty: 90 0RF No Action hydroxyzine pamoate 50 mg capsule 100 mg PO BEDTIME 30 Days Qty: 60 0RF Patient Comments: 50 mg or 100 mg prn omeprazole 40 mg capsule,delayed release(DR/EC) 40 mg PO DAILY 30 Days Qty: 30 1RF amlodipine 5 mg tablet 5 mg PO DAILY Qty: 30 0RF norelgestromin-ethin.estradiol [Xulane] 150-35 mcg/24 hr patch weekly 1 patch transdermal Q7D 28 Days Qty: 3 3RF Rx Instructions: apply once weekly for 3 weeks of a 4-week cycle fluticasone propionate 100 mcg/actuation blister with device 1 inh inhalation Q12H 30 Days Qty: 60 0RF valacyclovir 1 gram tablet 1,000 mg PO DAILY albuterol sulfate [Ventolin HFA] 90 mcg/actuation HFA aerosol inhaler 2 puff inhalation Q4H PRN (Reason: Shortness Of Breath) 30 Days Qty: 1 3RF ibuprofen 800 mg tablet 800 mg PO Q8H PRN (Reason: pain) 14 Days Qty: 42 0RF Rx Instructions: Do not take if in a 3rd trimester of a . metoprolol succinate 25 mg tablet extended release 24 hr 12.5 mg PO DAILY 90 Days Qty: 45 2RF prednisone 20 mg tablet 40 mg PO DAILY Qty: 10 0RF Referrals: Henrietta Mitchell MD [Physician] - 2 weeks Kentrell Peña MD [Physician] - 2 weeks Print Language: Irish
--- NOTE | 2024-07-22 14:08 | ECG_ITS ---
Test Reason : cp Blood Pressure : / mmHG Vent. Rate : 098 BPM Atrial Rate : 098 BPM P-R Int : 128 ms QRS Dur : 094 ms QT Int : 344 ms P-R-T Axes : 030 022 031 degrees QTc Int : 439 ms Normal sinus rhythm Normal ECG When compared with ECG of 22-APR-2024 11:16, No significant change was found Referred By: Joellen Bliss Electronically Signed By:RC ROBERTO
[2024-07-22 14:50] LABS: MANUAL DIFF FLAG NO
[2024-07-22 14:52] LABS: Basophils Absolute Auto 0.1 X10*3/uL (0.0-0.2); Basophils Percent Auto 0.6 % (0-2); Eosinophils Absolute Auto 0.2 X10*3/uL (0.0-0.4); Eosinophils Percent Auto 1.4 % (0-4); Hematocrit 39.7 % (37.0-47.0); Hemoglobin 13.3 g/dl (12.0-16.0); Imm Gran Abs Auto 0.07 X10*3/uL (0.00-0.03); Imm Gran Pct Auto 0.6 % (0.0-0.4); Lymphocytes Absolute Auto 3.2 X10*3/uL (1.2-4.9); Lymphocytes Percent Auto 26.8 % (20-40); Mean Corpuscular HGB Conc 33.5 g/dl (31.0-35.0); Mean Corpuscular Hemoglobin 28.7 pg (27.0-33.0); Mean Corpuscular Volume 85.6 fL (80.0-98.0); Mean Platelet Volume 9.2 fL (9.4-12.3); Monocytes Absolute Auto 0.7 X10*3/uL (0.1-1.2); Monocytes Percent Auto 5.9 % (2-11); Neutrophils Absolute Auto 7.6 x10*3/uL (2.0-8.3); Neutrophils Percent Auto 64.7 % (45-73); Platelet Count 366 X10*3/uL (160-400); Red Blood Count 4.64 X10*6/uL (4.20-5.50); Red Cell Distribution Width 13.5 % (11.0-16.0); White Blood Count 11.8 X10*3/uL (4.8-10.8)
[2024-07-22 14:57] LABS: INTERNATIONAL NORM RATIO 0.9 (0.9-1.1)
[2024-07-22 15:13] LABS: Alanine Aminotransferase 22 U/L (0-31); Albumin Level 3.8 g/dL (3.5-5.0); Alkaline Phosphatase 55 U/L (39-117); Anion Gap 12 (12-20); Aspartate Amino Transferase 16 U/L (5-31); Bilirubin Direct < 0.2 mg/dL (0.0-0.5); Bilirubin Total 0.2 mg/dL (0.0-1.0); Blood Urea Nitrogen 16 mg/dL (9-16); C Reactive Protein 0.43 mg/dL (< or = 0.50); Calcium 8.8 mg/dL (8.4-10.2); Carbon Dioxide 22 mmol/L (22-29); Chloride 109 mmol/L (96-108); Creatinine Clr Calc Pharmacy 166.6; Estimated Glomerular Filt Rate > 60; Glucose Random 150 mg/dL (60-115); Lipase 18 U/L (8-78); Magnesium 2.2 mg/dL (1.6-2.6); Potassium 3.8 mmol/L (3.3-5.1); Sodium 139 mmol/L (135-145); Total Protein 6.9 g/dL (6.5-8.0)
[2024-07-22 15:16] LABS: Amphetamine Screen Urine Not Detected (Not Detect); Barbiturates, Urine Not Detected (Not Detect); Benzodiazepines Screen Urine Not Detected (Not Detect); Buprenorphine Scr Not Detected (Not Detect); Cannabinoid Screen Urine Not Detected (Not Detect); Cocaine Screen Urine Not Detected (Not Detect); Fentanyl, urine Not Detected (Not Detect); Methadone Screen, Urine Not Detected (Not Detect); Opiate Screen Urine Not Detected (Not Detect); Oxycodone Screen Urine Not Detected (Not Detect); Phencyclidine Screen Urine Not Detected (Not Detect)
[2024-07-22 15:21] LABS: HCG Quantitative < 2 mIU/mL; Troponin-I High Sensitivity < 2.7 ng/L (<3.5-17.0)
[2024-07-22 15:24] LABS: TSH reflex Free T4 1.73 uIU/mL (0.32-4.0)
[2024-07-22 15:33] LABS: Erythrocyte Sedimentation Rate 5 MM/HR (0-20)
[2024-07-22 21:25] VITALS: BP 161/99; PULSE 76; RESP 20; TEMP 36.4; O2SAT 99
--- NOTE | 2024-07-22 22:00 | PC.NURSE ---
Pt ambulatory to [facility] from waiting room. A&Ox3 skin pwd, respirations even unlabored. Endorsing migraine x 2 months, workup completed in [facility], CT resulted. Awaiting primary provider eval.
[2024-07-23 00:06] VITALS: BP 162/97; PULSE 82; RESP 18; TEMP 36.5; O2SAT 98
[2024-07-23 01:40] VITALS: BP 0/0; PULSE 0; RESP 0; TEMP -17.7; TEMP 0; O2SAT 0
[2024-07-23] MEDS: Gabapentin 300 MG CAPSULE PO (01:43)
[2024-07-23 17:58] LABS: Lyme Abs Screen <0.90 index
[2024-07-25 02:13] LABS: A. Phagocytophilum Ab IgG <1:64 (<1:64); A. Phagocytophilum Ab IgM <1:20 (<1:20); E. Chaffeensis Ab IgG <1:64 (<1:64); E. Chaffeensis Ab IgM <1:20 (<1:20)
[2024-07-25 07:03] LABS: Babesia IgG <1:64 titer (<1:64); Babesia IgM <1:20 titer (<1:20)
== END 2024-07-23 01:40 | disposition home or self-care (01) ==
PROVIDERS: Physician Assistant Medical; Emergency Provider Internal Medicine; PCP Family Medicine
DX: G62.89 Other specified polyneuropathies (principal); R51.9 Headache, unspecified; R10.2 Pelvic and perineal pain; M54.2 Cervicalgia; R20.0 Anesthesia of skin; R07.89 Other chest pain; Z79.899 Other long term (current) drug therapy; Z51.81 Encounter for therapeutic drug level monitoring
CPT/HCPCS: 36415; 70450; 72125; 80048; 80076; 80307; 83690; 83735; 84443; 84484; 84702; 85025; 85610; 85652; 86140; 86617; 86618; 86666; 86753; 93005; 99284

== ENCOUNTER 2024-07-25 08:47 | Outpatient (AMB) | payer OTHER, SELFPAY ==
--- NOTE | 2024-07-25 08:50 | AM.OFFWIN_ITS ---
Intake Vital Signs 07/25/24 08:53 Height 5 ft 3 in Weight 307 lb BMI 54.4 BP 126/90 H Blood Pressure Location Lt brachial Position Sitting Pulse 83 Pulse Source Pulse Oximeter Pulse Oximetry (%) 98 Oxygen Delivery Method Room Air Intake Visit Reasons: EP-coughing, sore throat, mucus Intake Note: Patient here for cough, difficulty breathing for about 4-5 days, started coughing up green mucus 3 days ago. Patient Tobacco Use Status: Former Tobacco user Allergies prednisone Adverse Reaction (Mild, Verified 07/25/24 08:56) Hives bees Allergy (Mild, Uncoded 07/25/24 08:56) Swelling Do you need a note to return to daycare/school/sports/work: Yes HPI HPI Comments History of Present Illness Details 29 y/o female patient who presents to [facility] walk in clinic with c/o productive coughing, SOB for 4-5 days now. Reports fevers at home (100.2F) yesterday. Pt also c/o tenderness around the nose tip for few days. She had a Nose/septum pierced a month ago, and believes she might have an infection. [facility] Medical History Headache Degenerative disc disease, lumbar Degenerative disc disease, thoracic Anxiety Depression Bipolar 1 disorder Surgical History History of ear surgery History of wisdom tooth extraction Family History Mother Hypothyroid Gabriela's disease Arthritis Father No problems noted. Brother No problems noted. Sister No problems noted. Sister Bipolar 1 disorder Son No problems noted. Daughter No problems noted. 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 Current occupational exposures/hazards: No Sexual orientation: Straight/Heterosexual Gender identity: Female Cognitive needs: No Hearing needs: No Vision needs: No Review of Systems Const All systems reviewed & are unremarkable except as noted in HPI and below Physical Exam Vital Signs: Last Vital Signs Pulse 83 07/25/24 08:53 BP 126/90 H 07/25/24 08:53 Pulse Ox 98 07/25/24 08:53 Oxygen Delivery Method Room Air 07/25/24 08:53 BMI result Body Mass Index 54.4 Const General: cooperative and no acute distress Nutritional Appearance: obese Orientation/consciousness: patient oriented x3 HEENT Head: Yes normocephalic Ears: external ears normal and TM's normal bilaterally General nose exam: Normal septum present, Abnormal mucous membranes and turbinates present erythematous and Other nasal findings present (No nasal crusting or drainage. Tenderness to touch) Face and sinus: Yes sinuses nontender Mouth: moist mucous membranes Throat: Yes posterior oropharynx normal Skin General skin exam: no rashes or lesions noted Neuro General: patient oriented x3, gait normal and moves all extremities Psych Speech and movement: Normal speech and movement present Results AMB Rapid Strep AMB Rapid Strep Negative Last Edit by AZUCENA Lewis on 07/25/24 09:05 Results Reviewed Results Reviewed: Laboratory Last Values Strep Scn Rapid Clinic Negative 07/25/24 09:04 Assessment & Plan Assessment & Plan (1) Cough in adult: Code(s): R05.9 - Cough, unspecified Plan: OTC cough remedies Ordered SARs Warm fluids with honey. Orders: Orders SARS-CoV2/FLU/RSV Today J06.9 - Acute upper respiratory infection, unspecified AMB Rapid Strep Screen Today Z13.9 - Encounter for screening, unspecified Coding Level of Care Code Est Pt Level 3 (92347) Diagnoses Cough in adult R05.9 Time Spent (min) 15
[2024-07-25 08:53] VITALS: BP 126/90; PULSE 83; O2SAT 98; BMI 54.4
== END 2024-07-25 09:26 | disposition home or self-care (01) ==
PROVIDERS: PCP Family Medicine; Visit Provider Nurse Practitioner Family
DX: R05.9 Cough, unspecified (principal); J02.9 Acute pharyngitis, unspecified
CPT/HCPCS: 87880; 99213

== ENCOUNTER 2024-07-25 12:16 | Outpatient (REF) | payer OTHER, SELFPAY ==
[2024-07-25 14:19] LABS: Influenza A PCR NEGATIVE (Negative); Influenza B PCR NEGATIVE (Negative); Resp Syncy Virus RNA Qual PCR NEGATIVE (Negative); SARS COV2 PCR INHOUSE NEGATIVE (Negative)
== END 2024-07-25 12:17 | disposition home or self-care (01) ==
LOC: HO.LNP 12:16
PROVIDERS: Visit Provider Nurse Practitioner Family
DX: J06.9 Acute upper respiratory infection, unspecified (principal)
CPT/HCPCS: 0241U

== ENCOUNTER 2024-09-27 11:34 | Outpatient (AMB) | payer OTHER, SELFPAY ==
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
[2024-09-27 11:48] VITALS: BP 128/90; PULSE 92; RESP 16; TEMP 36.7; O2SAT 95; BMI 52.8
[2024-09-27 12:35] VITALS: BP 120/82; PULSE 76; O2SAT 97
[2024-09-27 12:37] VITALS: BP 112/68; PULSE 78; O2SAT 99
[2024-09-27 12:39] VITALS: BP 108/66; PULSE 85; O2SAT 97
== END 2024-09-27 12:40 | disposition home or self-care (01) ==
PROVIDERS: PCP Family Medicine; Visit Provider Nurse Practitioner Family
DX: R55 Syncope and collapse (principal); F41.9 Anxiety disorder, unspecified; F31.9 Bipolar disorder, unspecified; R53.83 Other fatigue

== ENCOUNTER → 2024-09-27 11:34 | Outpatient (BNVA) | payer OTHER, SELFPAY | PROVIDERS: PCP Family Medicine; Visit Provider Nurse Practitioner Family | DX: R55 Syncope and collapse (principal); F41.9 Anxiety disorder, unspecified; F31.9 Bipolar disorder, unspecified; R53.83 Other fatigue | CPT/HCPCS: 99212 ==

== ENCOUNTER 2024-10-01 11:45 | Outpatient (REF) | payer OTHER, SELFPAY ==
[2024-10-01 17:32] LABS: TSH reflex Free T4 1.25 uIU/mL (0.32-4.0); Vitamin D 25-OH Total 32.8 ng/mL (>30)
== END 2024-10-01 11:46 | disposition home or self-care (01) ==
LOC: HO.HMGCLDS 11:45
PROVIDERS: PCP Family Medicine; Visit Provider Nurse Practitioner Family
DX: F31.9 Bipolar disorder, unspecified (principal)
CPT/HCPCS: 36415; 82306; 84443; 99212

== ENCOUNTER 2024-10-01 11:45 | Outpatient (AMB) | payer OTHER, SELFPAY ==
[2024-10-01 12:45] VITALS: BP 130/90; PULSE 62; O2SAT 97
--- NOTE | 2024-10-01 12:45 | AM.OFFWIN_ITS ---
Intake Vital Signs 10/01/24 12:45 Weight 296 lb BP 130/90 H Blood Pressure Location Rt brachial Position Sitting Pulse 62 Pulse Source Pulse Oximeter Pulse Oximetry (%) 97 Oxygen Delivery Method Room Air Intake Visit Reasons: EP-b/l wrist pumps and extmly painful Intake Note: Patient here for lumps on both wrists that has been present for about 1 week. pts states her mom has hx of this as well. Patient Tobacco Use Status: Former Tobacco user Allergies prednisone Adverse Reaction (Mild, Verified 10/01/24 12:49) Hives bees Allergy (Mild, Uncoded 10/01/24 12:49) Swelling Do you need a note to return to daycare/school/sports/work: No HPI HPI Comments History of Present Illness Details The patient is a 29-year-old female presenting with painful lumps and associated nerve pain in the hands and arms. The patient reports the presence of small, mobile lumps under the skin of her right and left wrists, which she first noticed last week. These lumps are extremely painful, and she reported them increasing in size. She has a family history of similar lumps. In addition, the patient experiences a sharp, shooting, and burning pain that begins in her thumbs and radiates to her elbows, particularly exacerbated by typing or certain movements. Dr. Grewal previously diagnosed her with tendonitis, and she was advised to use a splint, which provided no relief. The patient avoids ibuprofen due to blood pressure issues but uses Tylenol for pain relief. Gabapentin was prescribed for tingling and numbness in the hands; however, its effectiveness on wrist pain is unclear. The pain fluctuates in intensity but can become highly severe when aggravating factors are present. The patient is scheduled for oral surgery to remove another cyst, reflecting a pattern of cyst formation, as she also has PCOS. [facility] Medical History (Updated 10/01/24 @ 13:09 by Sera Nelson PA-C) Headache Degenerative disc disease, lumbar Degenerative disc disease, thoracic Anxiety Depression Bipolar 1 disorder Surgical History History of ear surgery History of wisdom tooth extraction Family History Mother Hypothyroid Gabriela's disease Arthritis Father No problems noted. Brother No problems noted. Sister No problems noted. Sister Bipolar 1 disorder Son No problems noted. Daughter No problems noted. Other Lymphoma Mental health disorder Prostate cancer Substance use disorder Social History Household Members: Spouse, Family and Children Household Members Other:: sister Housing: Other Do you presently have visiting nurse or other home services: No Alcohol intake: current Alcohol intake frequency: holidays/special occasions only Patient Tobacco Use Status: Former Tobacco user Tobacco use type: Cigarette e-Cigarette/Vaping Use: Currently Using Second Hand Smoke Exposure: Yes Substance Use Type: Marijuana service: No Current occupational status: employed and student Current occupation: [employer] Current occupational exposures/hazards: No Sexual orientation: Straight/Heterosexual Gender identity: Female Cognitive needs: No Hearing needs: No Vision needs: No Review of Systems Const All systems reviewed & are unremarkable except as noted in HPI and below Physical Exam Vital Signs: Last Vital Signs Pulse 62 10/01/24 12:45 BP 130/90 H 10/01/24 12:45 Pulse Ox 97 10/01/24 12:45 Oxygen Delivery Method Room Air 10/01/24 12:45 Const General: cooperative, healthy appearing, comfortable, no acute distress and well developed Orientation/consciousness: patient oriented x3 Limitations: no limitations HEENT Head: Yes normal to inspection Neck Neck: Yes normal visual inspection and Yes supple Neuro General: patient oriented x3 Extrem Other: - Musculoskeletal- small, firm, mobile lumps noted under the skin of the right and left wrists. Assessment & Plan Assessment & Plan (1) Ganglion cyst of both wrists: Code(s): M67.431 - Ganglion, right wrist; M67.432 - Ganglion, left wrist Plan: - Ganglion cysts: A referral will be sent to a hand surgeon for further evaluation. Surgical intervention may be considered based on the surgeon's assessment. - Nerve pain: The patient is advised to adjust the dosage of gabapentin by taking an additional dose during the day as needed to manage acute episodes of nerve pain, especially on workdays. Continued use of Tylenol for pain management is recommended, avoiding ibuprofen due to her hypertension concern. Patient was informed and verbally consented to the use of an ambient scribe for clinic note documentation during this visit Orders: Referrals Orthopedics Referral M67.431 - Ganglion, right wrist, M67.432 - Ganglion, left wrist Coding Level of Care Code Est Pt Level 4 (81655) Diagnoses Ganglion cyst of both wrists M67.431; M67.432
== END 2024-10-01 13:42 | disposition home or self-care (01) ==
PROVIDERS: PCP Family Medicine; Visit Provider Physician Assistant
DX: M67.431 Ganglion, right wrist (principal); M67.432 Ganglion, left wrist

== ENCOUNTER 2024-10-18 13:49 | Outpatient (AMB) | payer OTHER, SELFPAY ==
--- NOTE | 2024-10-18 13:48 | A.OFFVIS_ITS ---
Intake Visit Reasons: SMOKE TESTER- B/L wrist Ganglion cyst Intake Note: April is a 29 year old left hand dominant female who presents today as a new patient with complaints of having cyst on her bilateral wrist. Pt states she noticed this in April. Pt states she was diagnosed with tendonitis in April as well from her PCP. Pt states she has numbness and tingling in her fingers. and states she wakes up at night with wrist pain. Pt states her pain is worse in her thumbs. 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 Allergies prednisone Adverse Reaction (Mild, Verified 10/18/24 13:48) Hives bees Allergy (Mild, Uncoded 10/18/24 13:48) Swelling HPI HPI SMOKE TESTER- B/L wrist Ganglion cyst: Details: Patient is a 29-year-old female who presents for evaluation of bilateral hand numbness and tingling, as well as bilateral small bumps on the wrists. The patient states that this numbness and tingling primarily affects the thumb and index fingers of bilateral hands, but does radiate into all fingers occasionally. Patient states that this is intermittent, but daily, and worse at night. Patient questions whether or not the small bumps in her wrist are causing this numbness and tingling. The small bumps are on the radial aspect of the wrist just proximal to the radial styloid. No other acute complaints or concerns at this time. [facility] Medical History (Updated 10/18/24 @ 16:16 by TRACY Lopez) Headache Degenerative disc disease, lumbar Degenerative disc disease, thoracic Anxiety Depression Bipolar 1 disorder Surgical History History of ear surgery History of wisdom tooth extraction Family History Mother Hypothyroid Gabriela's disease Arthritis Father No problems noted. Brother No problems noted. Sister No problems noted. Sister Bipolar 1 disorder Son No problems noted. Daughter No problems noted. Other Lymphoma Mental health disorder Prostate cancer Substance use disorder Social History Household Members: Spouse, Family and Children Household Members Other:: sister Housing: Other Do you presently have visiting nurse or other home services: No Alcohol intake: current Alcohol intake frequency: holidays/special occasions only Patient Tobacco Use Status: Former Tobacco user Tobacco use type: Cigarette e-Cigarette/Vaping Use: Currently Using Second Hand Smoke Exposure: Yes Substance Use Type: Marijuana service: No Current occupational status: employed and student Current occupation: [employer] Current occupational exposures/hazards: No Sexual orientation: Straight/Heterosexual Gender identity: Female Cognitive needs: No Hearing needs: No Vision needs: No Physical Exam Extrem Other: Neuro: Normal sensation of the tips of all digits of bilateral hands at this time No thenar or intrinsic wasting. Good APB muscle firing and good finger cross. Vascular: Capillary refill brisk. ROM: Patient can make a fist and extend all their digits. Skin: No lacerations or abrasions noted. General: No ecchymosis. No erythema or evidence of infection. There is noted to be a small, BB sized lump just proximal to the patient's right radial styloid to palpation, unable to visualize Assessment & Plan Assessment & Plan (1) Ganglion cyst of both wrists: Code(s): M67.431 - Ganglion, right wrist; M67.432 - Ganglion, left wrist Category: Medical (2) Numbness and tingling in both hands: Code(s): R20.0 - Anesthesia of skin; R20.2 - Paresthesia of skin Category: Medical Plan 1. Numbness and tingling of bilateral hands Patient does not have EMG and nerve conduction study on file At this time, patient was referred EMG and nerve conduction study for assessment of the health of the nerves of bilateral upper extremities Patient will follow-up after EMG and nerve conduction study for results review and discussion of further treatment options if indicated, sooner with any acute concerns 2. Small mass of right wrist At this time, patient was informed that I do not feel that any intervention is indicated for this mass at this time, as I do not feel I would be able to get a needle into this mass to be able to aspirate, and I do not feel it could be located well for any surgical intervention As the mass does not cause the patient any pain, I do not feel it is necessary for any intervention at this time Patient was amenable to this plan Orders: Orders NE nerve conduction velocity Today R20.0 - Anesthesia of skin, R20.2 - Paresthesia of skin NE electromyogram (EMG) Today R20.0 - Anesthesia of skin, R20.2 - Paresthesia of skin Coding Level of Care Code New Pt Level 3 (02788) Diagnoses Ganglion cyst of both wrists M67.431; M67.432 Numbness and tingling in both hands R20.0; R20.2
== END 2024-10-18 14:12 | disposition home or self-care (01) ==
PROVIDERS: PCP Family Medicine
DX: M67.431 Ganglion, right wrist (principal); M67.432 Ganglion, left wrist; R20.0 Anesthesia of skin; R20.2 Paresthesia of skin
CPT/HCPCS: 99203

== ENCOUNTER → 2024-10-18 13:49 | Outpatient (BNVA) | payer OTHER, SELFPAY | PROVIDERS: PCP Family Medicine | DX: M67.431 Ganglion, right wrist (principal); M67.432 Ganglion, left wrist; R20.0 Anesthesia of skin; R20.2 Paresthesia of skin | CPT/HCPCS: 99202 ==

== ENCOUNTER 2024-11-22 11:33 | Outpatient (AMB) | payer OTHER, SELFPAY ==
[2024-11-22 11:36] VITALS: BP 120/80; PULSE 66; O2SAT 99; BMI 52.1
--- NOTE | 2024-11-22 11:36 | MHC.PC.OV ---
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 Accompanied by: Self / Same As Patient Allergies prednisone Adverse Reaction (Mild, Verified 11/22/24 11:37) Hives bees Allergy (Mild, Uncoded 10/18/24 13:48) Swelling Tobacco use date assessed: 11/22/24 Dental Screening Dental Screen Date: 11/22/24 Did you have a dental visit in the last 12 months?: Yes Did you have a dental problem in the last 6 months where you did not have access to dental care?: No Was dental information given to patient?: Patient has dentist HPI elevated fasting glucose, elevated cholesterol HPI Details 29 y/o female presents to f/u elevated fasting glucose, elevated cholesterol. No recent labs to review. Recent [facility] visit for bilateral papillary edema. Pt was evaluated by neurology team who recommended MRI brain. Did not have increased ocular pressure and MRI shows findings of increased intracranial pressure. Pt notes ongoing vision changes since she had left the hospital. HPI Comments History of Present Illness Details Documentation assistance for Phuc Grewal MD, was provided by Tj Abernathy,? [employer] Bus Driver on 11/22/2024 at 1:04 PM EST. I, Dr. Grewal, have read, observed, and verified documentation. ?? [facility] Medical History Headache Degenerative disc disease, lumbar Degenerative disc disease, thoracic Anxiety Depression Bipolar 1 disorder Surgical History History of ear surgery History of wisdom tooth extraction Family History Mother Hypothyroid Gabriela's disease Arthritis Father No problems noted. Brother No problems noted. Sister No problems noted. Sister Bipolar 1 disorder Son No problems noted. Daughter No problems noted. 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 Current occupational exposures/hazards: No Sexual orientation: Straight/Heterosexual Gender identity: Female Cognitive needs: No Hearing needs: No Vision needs: No Questionnaire PHQ-9 Over the last 2 weeks, how often have you been bothered by any of the following problems? 1. Little interest or pleasure in doing things: several days 2. Feeling down, depressed, or hopeless: not at all 3. Trouble falling or staying asleep, or sleeping too much: nearly every day 4. Feeling tired or having little energy: nearly every day 5. Poor appetite or overeating: not at all 6. Feeling bad about yourself - or that you are a failure or have let yourself or your family down: not at all 7. Trouble concentrating on things, such as reading the newspaper or watching television: nearly every day 8. Moving or speaking so slowly that other people could have noticed. Or the opposite - being so fidgety or restless that you have been moving around a lot more than usual: not at all 9. Thoughts that you would be better off or of hurting yourself in some way: not at all Total score: 10 Depression Screening Interpretation: Positive Depression Screening Done: Yes 22835 - PHQ-9 Billing: Yes Source: Developed by Drs. Tato Jenkins, Shira Barron, Tacho Khalil and colleagues, with an educational zheng from [employer]. Thrive Questionnaire Date Thrive assessed: 11/22/24 I am a: Patient What is your living situation today?: I do not have a steady places to live I am staying at a snf Within the past 12 months, did the food you bought not last and you didn't have the money to get more?: Often true Within the past 12 months, did you worry whether your food would run out before you got money to buy more?: Often true Do you have trouble paying for medicines?: No Do you have trouble getting transportation to medical appointments?: No Do you have trouble paying your heating and electricity bill?: No Do you have trouble taking care of your child, family member or friend?: No Do you have trouble with day-to-day activities such as bathing, preparing meals, shopping, managing finances, etc.?: Yes Are you currently unemployed and looking for a job?: No Are you interested in more education?: Yes Please select the resources that you would like help with: None THRIVE Score: 3 AUDIT C Alcohol Use Questionnaire (AUDIT-C) 1. How often do you have a drink containing alcohol?: Never 3. How often do you have six or more drinks on one occasion?: Never Total Score: 0 Score Reviewed/Action Taken: Yes MARY ALICE-7 AMB Questionnaire MARY ALICE-7 Date MARY ALICE - 7 assessed: 11/22/24 Feeling nervous, anxious, or on edge: 1 = Several days Not being able to stop or control worryin = Several days Worrying too much about different things: 1 = Several days Trouble relaxin = More than half the days Being so restless that it is hard to sit still: 0 = Not at all Becoming easily annoyed or irritable: 3 = Nearly every day Feeling afraid as if something awful might happen: 0 = Not at all Total MARY ALICE-7 score (0-4 normal; 5-9 mild; 10-14 moderate; 15-21 severe): 8 Source: Developed by Drs. Tato Jenkins, Shira Barron, Tacho Khalil and colleagues, with an educational zheng from [employer]. MARY ALICE-7 Assessment Billing MARY ALICE-7 Assessment Tool: MARY ALICE-7 Assessment 41729 Review of Systems Const Denies chills, Denies fatigue, Denies fever(s), Denies headache(s) and Denies weakness ENT Denies dizziness and Denies headache(s) Card Denies dyspnea Resp Denies cough, Denies dyspnea, Denies wheezing and Denies other (shortness of breath) Musc Denies numbness and Denies tingling Neuro Denies dizziness, Denies headache(s), Denies numbness, Denies tingling and Denies weakness Psych Denies anxiety and Denies depression Endo Denies fatigue Aller/Immun Denies wheezing Physical exam (Primary Care) Vital Signs: Last Vital Signs Pulse 66 11/22/24 11:36 BP 120/80 11/22/24 11:36 Pulse Ox 99 11/22/24 11:36 BMI result Body Mass Index 52.1 Tobacco/Smoking Status: Tobacco use Status Tobacco use date assessed 11/22/24 11/22/24 11:40 Patient Tobacco Use Status Former Tobacco user 11/22/24 11:36 Tobacco use type Cigarette 11/22/24 11:36 e-Cigarette/Vaping Use Currently Using 11/22/24 11:36 PHQ-9: PHQ-9 Score PHQ-9: Total score 10 11/22/24 11:46 Depression Screening Interpretation: Positive Thrive Assessment: Date of Thrive Assessment Date Thrive assessed 11/22/24 11/22/24 11:40 Const General: well developed; No acute distress Nutritional Appearance: well nourished Orientation/consciousness: patient oriented x3 HENMT Head: Yes normocephalic and Yes atraumatic Eyes General: appearance normal, both eyes and all related structures Pupils: Equal, round and reactive pupils present EOM: EOMs intact bilaterally Resp Effort & Inspection: normal respiratory effort Neuro General: patient oriented x3 and gait normal Cranial nerves: Yes Equal, round and reactive pupils present Psych Affect: normal affect Coding Level of Care Code Est Pt Level 4 (36279) Diagnoses Idiopathic intracranial hypertension G93.2 Papilledema associated with decreased ocular pressure H47.12 Screening for tuberculosis Z11.1 GERD (gastroesophageal reflux disease) K21.9 Additional Codes MARY ALICE-7 Assessment Billing - MARY ALICE-7 Assessment Tool: MARY ALICE-7 Assessment 53249 ([id number]) PHQ-9 - 84046 - PHQ-9 Billing: Yes ([id number]) Assessment & Plan Assessment & Plan (1) Idiopathic intracranial hypertension: Code(s): G93.2 - Benign intracranial hypertension Category: Medical Plan: MRI?shows?no?mass?or?acute?findings. 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 (3) Screening for tuberculosis: Code(s): Z11.1 - Encounter for screening for respiratory tuberculosis Category: Medical Plan: Also,?patient?needs?TB?screening?for?work Ordered?and?we?can?follow-up?at?next?visit (4) GERD (gastroesophageal reflux disease): Code(s): K21.9 - Gastro-esophageal reflux disease without esophagitis Category: Medical Plan: Ongoing?GERD?symptoms.??Had?sent?script?for?omeprazole?but?her?insurance?is?declining?this Will?try?pantoprazole Plan Pappiledema associated with decreased occular pressure, Optic Neuritis, ? Idiopathic Intracranial HTN, ? MS Referred?to?neurology. ?Will?likely?need?lumbar?puncture. I?have?given?her?the?phone?number?for?the?neurologist?and?she?will?call?if?they?do?not?contact?her?soon She?will?follow-up?with?me?next?week?to?review?labs?previously?ordered.??Will?also?follow-up?on?T?spot?test?as?she?this?for?work. Will?also?ensure?that?she?has?appointment?or?has?been?seen?by?neurologist. Orders: Orders T Spot TB Today Z11.1 - Encounter for screening for respiratory tuberculosis Referrals Neurology Referral G93.2 - Benign intracranial hypertension, H47.12 - Papilledema associated with decreased ocular pressure, H53.9 - Unspecified visual disturbance Medications: New pantoprazole 20 mg PO DAILY 30 days 30 tabs 2RF Discontinued omeprazole Discontinued Reason: Insurance Denied 40 mg PO DAILY 30 days 30 caps 1RF
== END 2024-11-22 13:13 | disposition home or self-care (01) ==
PROVIDERS: PCP Family Medicine; Visit Provider Family Medicine
DX: G93.2 Benign intracranial hypertension (principal); H47.12 Papilledema associated with decreased ocular pressure; Z11.1 Encounter for screening for respiratory tuberculosis; K21.9 Gastro-esophageal reflux disease without esophagitis

== ENCOUNTER → 2024-11-22 11:33 | Outpatient (BNVA) | payer OTHER, SELFPAY | PROVIDERS: PCP Family Medicine; Visit Provider Family Medicine | DX: G93.2 Benign intracranial hypertension (principal); H47.12 Papilledema associated with decreased ocular pressure; K21.9 Gastro-esophageal reflux disease without esophagitis | CPT/HCPCS: 96127; 99212 ==

== ENCOUNTER 2024-11-22 13:20 | Outpatient (REF) | payer OTHER, SELFPAY ==
[2024-11-22 17:43] LABS: Estimated Average Glucose 114 mg/dL; Hemoglobin A1c % 5.6 % (<6.0); Total Hemoglobin (HGBA1C) 3745.6374 umol/L
[2024-11-22 17:53] LABS: Alanine Aminotransferase 27 U/L (0-31); Alkaline Phosphatase 60 U/L (39-117); Anion Gap 10 (12-20); Aspartate Amino Transferase 35 U/L (5-31); Bilirubin Total 0.5 mg/dL (0.0-1.0); Blood Urea Nitrogen 13 mg/dL (9-16); Carbon Dioxide 26 mmol/L (22-29); Chloride 107 mmol/L (96-108); Cholesterol 195 mg/dL (<200); Estimated Glomerular Filt Rate > 60; Glucose Fasting 108 mg/dL (60-99); HDL Cholesterol 50 mg/dL (>40); LDL Cholesterol Calculated 121 mg/dL (<100); Potassium 3.9 mmol/L (3.3-5.1); Sodium 139 mmol/L (135-145); Total Protein 7.5 g/dL (6.5-8.0); Triglycerides 124 mg/dL (<150)
[2024-11-22 18:03] LABS: Appearance Urine Turbid; Color Urine Yellow; Glucose Urine UA Negative (Negative); Leukocyte Esterase Urine Negative (Negative); Nitrite Urine Negative (Negative); Specific Gravity - Urine 1.025 (1.005-1.025); Urine Blood Negative (Negative); Urine Ketones Negative (Negative); Urine Protein Negative (Neg-Trace)
[2024-11-25 09:19] LABS: TS Negative Control Passed; TS Panel A 1; TS Panel B 0; TS Positive Control Passed; TSpotTB Negative (Negative)
== END 2024-11-22 13:21 | disposition home or self-care (01) ==
LOC: HO.WFDLDS 13:20
PROVIDERS: Visit Provider Family Medicine
DX: Z00.00 Encounter for general adult medical examination without abnormal findings (principal); E78.00 Pure hypercholesterolemia, unspecified; R73.01 Impaired fasting glucose; Z11.1 Encounter for screening for respiratory tuberculosis
CPT/HCPCS: 36415; 80053; 80061; 81003; 83036; 86481

== ENCOUNTER 2025-04-24 11:45 | Outpatient (AMB) | payer OTHER, SELFPAY ==
--- NOTE | 2025-04-24 12:17 | A.OFFPC_ITS ---
Vital Signs 04/24/25 12:25 Height 5 ft 3 in Weight 308 lb 4 oz BMI 54.6 BP 110/70 Blood Pressure Location Lt brachial Position Sitting Respiration 16 Pulse 67 Pulse Source Pulse Oximeter Temp 97.8 F Temp Source Oral Pulse Oximetry (%) 100 Oxygen Delivery Method Room Air Intake Visit Reasons: f/u chronic conditions Intake Note: patient is scheduled to discuss weight mangt rx Environmental Issues Instructor Required: No Allergies prednisone Adverse Reaction (Mild, Verified 04/24/25 12:20) Hives bees Allergy (Mild, Uncoded 10/18/24 13:48) Swelling Medication List - Last Reconciled 04/24/25 by Phuc Grewal MD albuterol sulfate 90 mcg/actuation (Ventolin HFA) 2 puffs inhalation Q4H PRN 30 days amlodipine 5 mg PO DAILY fluticasone propionate 100 mcg/actuation 1 inh inhalation Q12H 30 days gabapentin 300 mg PO BEDTIME hydrochlorothiazide 25 mg PO QAM 30 days hydroxyzine HCl 100 mg PO BID lurasidone 40 mg PO DAILY metoprolol succinate ER 12.5 mg (1/2 x 25 mg) PO DAILY 90 days mirtazapine 7.5 mg PO BEDTIME pantoprazole 20 mg PO DAILY 30 days valacyclovir 500 mg PO DAILY 90 days Tobacco use date assessed: 11/22/24 Dental Screening Dental Screen Date: 11/22/24 HPI f/u chronic conditions HPI Details 29 y/o female presents to f/u chronic co nditions. MRI findings had been consistent with idiopathic intracranial hypertension. Was referred to neurology from ophtahlmomlogist office for bilateral papillaedema. Had seen Neurology December - addedDiamox 250mg t.i.d. Blood pressure today 110/70, 67p. Weight worsened since visit in November - 294 lbs to 308 lbs. [facility] Medical History Headache Degenerative disc disease, lumbar Degenerative disc disease, thoracic Anxiety Depression Bipolar 1 disorder Surgical History History of ear surgery History of wisdom tooth extraction Family History Mother Hypothyroid Gabriela's disease Arthritis Father No problems noted. Brother No problems noted. Sister No problems noted. Sister Bipolar 1 disorder Son No problems noted. Daughter No problems noted. Other Lymphoma Mental health disorder Prostate cancer Substance use disorder Social History Household Members: Spouse, Family and Children Household Members Other:: sister Housing: Other Do you presently have visiting nurse or other home services: No Alcohol intake: current Alcohol intake frequency: holidays/special occasions only Patient Tobacco Use Status: Former Tobacco user Tobacco use type: Cigarette e-Cigarette/Vaping Use: Currently Using Second Hand Smoke Exposure: Yes Substance Use Type: Marijuana service: No Current occupational status: employed and student Current occupation: [employer] ([place]) Current occupational exposures/hazards: No Sexual orientation: Straight/Heterosexual Gender identity: Female Cognitive needs: No Hearing needs: No Vision needs: No Questionnaire PHQ-9 Over the last 2 weeks, how often have you been bothered by any of the following problems? 1. Little interest or pleasure in doing things: not at all 2. Feeling down, depressed, or hopeless: several days 3. Trouble falling or staying asleep, or sleeping too much: several days 4. Feeling tired or having little energy: several days 5. Poor appetite or overeating: several days 6. Feeling bad about yourself - or that you are a failure or have let yourself or your family down: not at all 7. Trouble concentrating on things, such as reading the newspaper or watching television: several days 8. Moving or speaking so slowly that other people could have noticed. Or the opposite - being so fidgety or restless that you have been moving around a lot m ore than usual: not at all 9. Thoughts that you would be better off or of hurting yourself in some way: not at all Total score: 5 Source: Developed by Drs. Tato Jenkins, Shira Barron, Tacho Khalil and colleagues, with an educational zheng from [employer]. Thrive Questionnaire Date Thrive assessed: 11/22/24 I am a: Patient What is your living situation today?: I have a steady place to live Within the past 12 months, did the food you bought not last and you didn't have the money to get more?: Never true Within the past 12 months, did you worry whether your food would run out before you got money to buy more?: Never true Do you have trouble paying for medicines?: No Do you have trouble getting transportation to medical appointments?: No Do you have trouble paying your heating and electricity bill?: No Do you have trouble taking care of your child, family member or friend?: No Do you have trouble with day-to-day activities such as bathing, preparing meals, shopping, managing finances, etc.?: No Are you currently unemployed and looking for a job?: No Are you interested in more education?: No Please select the resources that you would like help with: None Currently or been in a relationship where the following occur: No concerns reported THRIVE Score: 0 AUDIT C Alcohol Use Questionnaire (AUDIT-C) 1. How often do you have a drink containing alcohol?: Never Total Score: 0 MARY ALICE-7 AMB Questionnaire MARY ALICE-7 Date MARY ALICE - 7 assessed: 11/22/24 Feeling nervous, anxious, or on edge: 1 = Several days Not being able to stop or control worryin = Several days Worrying too much about different things: 1 = Several days Trouble relaxin = Several days Being so restless that it is hard to sit still: 0 = Not at all Becoming easily annoyed or irritable: 1 = Several days Feeling afraid as if something awful might happen: 1 = Several days Total MARY ALICE-7 score (0-4 normal; 5-9 mild; 10-14 moderate; 15-21 severe): 6 Source: Developed by Drs. Tato Jenkins, Shira Barron, Tacho Khalil and colleagues, with an educational zheng from [employer]. Review of Systems Const Denies chills, Denies fatigue, Denies fever(s), Denies headache(s) and Denies weakness ENT Denies dizziness and Denies headache(s) Card Denies dyspnea Resp Denies cough, Denies dyspnea, Denies wheezing and Denies other (shortness of breath) Musc Denies numbness and Denies tingling Neuro Denies dizziness, Denies headache(s), Denies numbness, Denies tingling and Denies weakness Psych Denies anxiety and Denies depression Endo Denies fatigue Aller/Immun Denies wheezing Physical exam (Primary Care) Vital Signs: Last Vital Signs Temp 97.8 F 04/24/25 12:25 Pulse 67 04/24/25 12:25 Resp 16 04/24/25 12:25 BP 110/70 04/24/25 12:25 Pulse Ox 100 04/24/25 12:25 Oxygen Delivery Method Room Air 04/24/25 12:25 BMI result Body Mass Index 54.6 Tobacco/Smoking Status: Tobacco use Status Tobacco use date assessed 11/22/24 04/24/25 12:28 Patient Tobacco Use Status Former Tobacco user 04/24/25 12:28 Tobacco use type Cigarette 04/24/25 12:28 e-Cigarette/Vaping Use Currently Using 04/24/25 12:28 PHQ-9: PHQ-9 Score PHQ-9: Total score 5 04/24/25 12:37 Thrive Assessment: Date of Thrive Assessment Date Thrive assessed 11/22/24 04/24/25 12:28 Currently or been in a relationship where the following occur: No concerns reported Const General: well developed; No acute distress Nutritional Appearance: obese morbidly obese Orientation/consciousness: patient oriented x3 HENMT Head: Yes normocephalic and Yes atraumatic Eyes General: appearance normal, both eyes and all related structures Pupils: Equal, round and reactive pupils present EOM: EOMs intact bilaterally Resp Effort & Inspection: normal respiratory effort Neuro General: patient oriented x3 and gait normal Cranial nerves: Yes Equal, round and reactive pupils present Psych Affect: normal affect Coding Level of Care Code Est Pt Level 3 (94844) Diagnoses Morbid obesity E66.01 Assessment & Plan Assessment & Plan (1) Morbid obesity: Code(s): E66.01 - Morbid (severe) obesity due to excess calories Category: Medical Plan: Morbid?obesity?with?BMI?over?54 Sending?a?script?for?[place]. She?also?has?an?appointment?for?a?sleep?study,?or?by?her?neurologist Will?check?labs?today Orders: Orders Comprehensive [place]. Panel Fast Today Z00.00 - Encounter for general adult medical examination without abnormal findings Lipid Panel Today Z00.00 - Encounter for general adult medical examination without abnormal findings TSH reflex Free T4 Today Z00.00 - Encounter for general adult medical examination without abnormal findings Referrals [facility] Referral E28.2 - Polycystic ovarian syndrome, Z12.4 - Encounter for screening for malignant neoplasm of cervix, Z30.09 - Encounter for other general counseling and advice on contraception Medications: New semaglutide (weight loss) ([place]) administer weeks 1 through 4 of therapy 0.25 mg (0.5 mL) subcut QWEEK 28 days 2 mL 3RF
[2025-04-24 12:25] VITALS: BP 110/70; PULSE 67; RESP 16; TEMP 36.6; O2SAT 100; BMI 54.6
== END 2025-04-24 12:54 | disposition home or self-care (01) ==
LOC: HO.HMCFM 11:46
PROVIDERS: PCP Family Medicine; Visit Provider Family Medicine
DX: E66.01 Morbid (severe) obesity due to excess calories (principal); Z68.43 Body mass index [BMI] 50.0-59.9, adult

== ENCOUNTER → 2025-04-24 11:45 | Outpatient (BNVA) | payer OTHER, SELFPAY | PROVIDERS: PCP Family Medicine; Visit Provider Family Medicine | DX: E66.01 Morbid (severe) obesity due to excess calories (principal); E28.2 Polycystic ovarian syndrome; G93.2 Benign intracranial hypertension; Z68.43 Body mass index [BMI] 50.0-59.9, adult | CPT/HCPCS: 99212 ==

== ENCOUNTER 2025-04-24 12:58 | Outpatient (REF) | payer OTHER, SELFPAY ==
[2025-04-24 14:45] LABS: Alanine Aminotransferase 38 U/L (0-31); Albumin Level 4.6 g/dL (3.5-5.0); Alkaline Phosphatase 48 U/L (39-117); Anion Gap 11 (12-20); Aspartate Amino Transferase 34 U/L (5-31); Bilirubin Total 0.6 mg/dL (0.0-1.0); Blood Urea Nitrogen 17 mg/dL (9-16); Calcium 9.4 mg/dL (8.4-10.2); Carbon Dioxide 26 mmol/L (22-29); Chloride 104 mmol/L (96-108); Cholesterol 183 mg/dL (<200); Estimated Glomerular Filt Rate > 60; Glucose Fasting 120 mg/dL (60-99); HDL Cholesterol 49 mg/dL (>40); LDL Cholesterol Calculated 115 mg/dL (<100); Potassium 3.2 mmol/L (3.3-5.1); Sodium 138 mmol/L (135-145); Total Protein 7.5 g/dL (6.5-8.0); Triglycerides 96 mg/dL (<150)
[2025-04-24 14:50] LABS: TSH reflex Free T4 1.66 uIU/mL (0.32-4.0)
== END 2025-04-24 12:59 | disposition home or self-care (01) ==
LOC: HO.WFDLDS 12:58
PROVIDERS: Visit Provider Family Medicine
DX: Z00.00 Encounter for general adult medical examination without abnormal findings (principal)
CPT/HCPCS: 36415; 80053; 80061; 84443

== ENCOUNTER 2025-09-11 12:43 | Outpatient (AMB) | payer OTHER, SELFPAY ==
[2025-09-11 13:22] VITALS: BP 138/80; PULSE 73; TEMP 37.1; O2SAT 99; BMI 52.1
--- NOTE | 2025-09-11 13:22 | MHC.OFFWIV ---
Intake Vital Signs 09/11/25 13:22 Height 5 ft 3 in Weight 294 lb BMI 52.1 BP 138/80 Blood Pressure Location Rt brachial Position Sitting Pulse 73 Pulse Source Pulse Oximeter Temp 98.8 F Temp Source Oral Pulse Oximetry (%) 99 Oxygen Delivery Method Room Air Intake Visit Reasons: ep 5 days late with menses Intake Note: EP complains of delay in her menses for 5 days. Patient Tobacco Use Status: Former Tobacco user Allergies prednisone Adverse Reaction (Mild, Verified 09/11/25 13:41) Hives bees Allergy (Mild, Uncoded 10/18/24 13:48) Swelling Do you need a note to return to daycare/school/sports/work: Yes HPI HPI Comments History of Present Illness Details History of Present Illness - The patient is a 30-year-old female presenting with amenorrhea. - The patient's menstrual period is five days late, which is unusual for her unless there is an underlying issue. - She has taken multiple home tests, all of which were negative. - The patient reports consistent use of condoms with her partner, reducing the likelihood of . - She has a history of chronic bacterial vaginosis, which she says her only symptom is a missed period. - The patient has experienced severe complications from untreated bacterial vaginosis in the past, including a kidney infection. - She denies any symptoms such as abnormal discharge, pain during intercourse, or urinary symptoms. - The patient expresses concern about a potential sexually transmitted infection due to a new partner within the last month though they use condoms every time. Review of Systems - Genitourinary: Denies abnormal discharge, dysuria, hematuria, or dyspareunia. All systems reviewed and are unremarkable except as noted in HPI Physical Exam General: Cooperative, healthy appearing, comfortable, no acute distress and well developed Orientation: Patient oriented x3 Limitations: No limitations Head: Normal to inspection Ears: Hearing grossly normal bilaterally Nose: Normal External nose present Face and sinus: Normal facial exam Eyes: Appearance normal, both eyes and all related structures Neck: Normal visual inspection and Yes full ROM Respiratory: Normal respiratory effort and able to speak in complete sentences. Skin: No rashes or lesions noted Neuro: Patient oriented x3 Extremities: Normal to inspection [facility] Medical History Headache Degenerative disc disease, lumbar Degenerative disc disease, thoracic Anxiety Depression Bipolar 1 disorder Surgical History History of ear surgery History of wisdom tooth extraction Family History Mother Hypothyroid Gabriela's disease Arthritis Father No problems noted. Brother No problems noted. Sister No problems noted. Sister Bipolar 1 disorder Son No problems noted. Daughter No problems noted. Other Lymphoma Mental health disorder Prostate cancer Substance use disorder Social History Household Members: Spouse, Family and Children Household Members Other:: sister Housing: Other Do you presently have visiting nurse or other home services: No Alcohol intake: current Alcohol intake frequency: holidays/special occasions only Patient Tobacco Use Status: Former Tobacco user Tobacco use type: Cigarette e-Cigarette/Vaping Use: Currently Using Second Hand Smoke Exposure: Yes Substance Use Type: Marijuana service: No Current occupational status: employed and student Current occupation: [employer] Current occupational exposures/hazards: No Sexual orientation: Straight/Heterosexual Gender identity: Female Cognitive needs: No Hearing needs: No Vision needs: No Physical Exam Vital Signs: Last Vital Signs Temp 98.8 F 09/11/25 13:22 Pulse 73 09/11/25 13:22 BP 138/80 09/11/25 13:22 Pulse Ox 99 09/11/25 13:22 Oxygen Delivery Method Room Air 09/11/25 13:22 BMI result Body Mass Index 52.1 Results AMB Test Urine AMB Test Urine Negative Last Edit by Magdalene Tai MA on 09/11/25 14:09 Assessment & Plan Assessment & Plan (1) Menstrual period late: Code(s): N92.6 - Irregular menstruation, unspecified Plan: Plan Patient was informed and verbally consented to the use of an ambient scribe for clinic note documentation during this visit. - Conducted a urine test, which was negative. - Advised the patient to repeat the test in a few days if menstruation does not occur. - Performed a Bacterial vaginosis test to confirm diagnosis and guide treatment. - Tested for gonorrhea and chlamydia due to the new sexual partner. Orders: Orders Bacterial Vaginosis Panel Today N92.6 - Irregular menstruation, unspecified CT NG by PCR Urine Today N92.6 - Irregular menstruation, unspecified AMB HCG Urine Test Today Z32.02 - Encounter for test, result negative Coding Level of Care Code Est Pt Level 3 (71293) Diagnoses Menstrual period late N92.6
--- OUTSIDE RECORDS SUMMARY | 2025-09-11 15:34 | XMS_ITS | Data Portability ---
Author Organization [place] - [facility], Home - [place] Address [address] [place] [address] Assessment Encounter Date Assessment Date Assessment LastModified by Organization Details LastModified Time 11/02/2023 11/02/2023 28 year old female patient presents today with a possible bilateral ear infection. Symptoms started 2 days ago. Also her period is 5 days late so she would like a test. She would also like to be tested for STD's because she has a new partner. Thi morning when the pt woke up she noticed purulent left ear drainage on her neck and pillow. urine test is Negative left OM amox 875mg bid 5 days STI screening Check HIV 1 & 2 antigen antibody [place] Check syphilis total Ab reflex [place] Check HCV Ab W reflex to HCV RNA PCR [place] Check hep B surf Ab [place] Check GC chlamydia urine amplified RNA [place] I encouraged the patient to drink plenty of fluids. f/u prn pt is establishing Primary Care in the office. pt verbalized her understanding of the treatment plan and understands that she can RTC if any changes. [email or web address] Not available 11/02/2023 13:03:45 Plan of Treatment Reminders Order Date Submit Date Provider Last Modified By Organization Details Last Modified Time Details Appointments None recorded. Lab PPD (purified protein derivative ), skin test 2023 024 [facility], [address], [place], [address], 15:43:02 bacterial vaginosis + vaginitis panel, vaginal 2023 024 [facility], [address] [place], [address], 4 09:23:35 chlamydia, RNA, urine 2023 024 [facility], [address] [place] [address], [address], 4 15:03:31 urinalysis , dipstick [address], [address] [place] [address], [address], 4 16:46:54 test, urine [address], [address] [place] [address], [address], 4 16:46:44 test, urine [email or web address] [place] [address], [address] [place] [address], [address], 3 12:57:46 HIV (1+2) Ab screen, serum 2022 023 [facility], [address] [place] [address], [address], 3 07:39:51 Treponema pallidum IgG Ab, qual EIA, serum 2022 023 [facility], [address] [place] [address], [address], 3 16:33:01 hepatitis C Ab, serum 2022 023 [facility], [address] [place] [address], [address], 3 07:40:41 hepatitis B surface Ab, qualitativ e, serum 2022 023 [facility], [address] [place] [address], [address], 3 07:44:19 chlamydia, RNA, urine 2022 023 [facility], [address] [place] [address] Rd, [place], [address], 3 15:25:11 influenza virus A + B + SARS-CoV-2 (COVID19) Ag panel, rapid IA, upper respirator y specimen 2022 023 [facility], [address], [place], [address], 3 11:49:29 Referral None recorded. Procedures None recorded. Surgeries None recorded. Imaging None recorded. Medication Orders tuberculin PPD 5 tub. unit/0.1 mL intraderma l injection solution 2023 024 [email or web address] [facility]03987, [address], [place], [id number], 4 14:24:22 fluconazol e 150 mg tablet 2023 024 [facility] #00113, [address], [place], [id number], 4 14:24:41 doxycyclin e hyclate 100 mg tablet 2023 024 [facility] #88473, [address], [place], [id number], 4 13:51:31 amoxicilli n 875 mg tablet 2022 024 [facility] #14242, [address], [place], [id number], 4 16:19:41 albuterol sulfate HFA 90 mcg/actuat ion aerosol inhaler 2022 023 [facility] #30615, [address], [place], [place], [id number], 12:30:21 dexamethas one 6 mg tablet 2022 023 [facility] #18320, [address], [place], [place], [id number], 12:30:31 ipratropiu m 0.5 mg-albuter ol 3 mg (2.5 mg base)/3 mL nebulizati on soln 2022 023 [email or web address] Not available 12:30:46 Patient TargetsNo targets recorded. Patient InstructionsNo instructions recorded. Reason for Referral None Reported. Results Created Date Observation Date Name Description Value Unit Range Abnormal Flag Note LastModifiedBy Organization Detail LastModifiedTime 08/23/2008/23/2023 influ [place]im[place] virus A + B + SARS- CoV-2 (COVI D19) Ag panel , rapid IA, upper respi rator y speci men Influenza A negati ve Not Available [address], [address], 08/23/2023 11:09:47 08/23/20 23 08/23/2023 influ [place] virus A + B + SARS- CoV-2 (COVI D19) Ag panel , rapid IA, upper respi rator y speci men Influenza B negati ve Not Available [address], [address], 08/23/2023 11:09:47 08/23/20 23 08/23/2023 influ [place] virus A + B + SARS- CoV-2 (COVI D19) Ag panel , rapid IA, upper respi rator y speci men SARS-COV-2 Ag negati ve Not Available [address], [address], 08/23/2023 11:09:47 11/02/20 23 11/02/2023 HIV 1 & 2 ANTIG EN ANTIB ALAINA [facility] HIV 1/2 antigen andantibody NEGATI VE negati ve If acute HIV-1 infec tion is suspe cted in a high risk patie nt, submi t plasm a speci men for HIV-1 RNA quant itati on test. ELECT ALEXY Parry BY FABIAN HOWARD: Fourt h Gener ation assay perfo rmed on the Vital Metrixa ur XPT. Test perfo rmed or refer red by [facility] [address] [place] [place] [address] Not Available [facility] [address] [place], [address], 11/03/2023 07:39:51 11/02/20 23 11/03/2023 HIV 1 & 2 ANTIG EN ANTIB ALAINA [facility] send to ic NO Not Available [facility] [address] [place], [address], 11/03/2023 07:39:51 11/02/20 23 11/02/2023 HCV AB W REFLE X TO HCV RNA PCR [facility] hep C Ab W rfx PCR NEGATI VE negati ve ELECT ALEXY Parry BY FABIAN HOWARD: Test perfo rmed or refer red by [facility] [address] [place] [address] Not Available [facility] [address] [place], [address], 11/03/2023 07:40:41 11/02/20 23 11/03/2023 GC CHLAM YDIA URINE AMPLI FIED RNA [facility] chlamydia result POSITI VE negati ve abnormal Not Available [facility] [address] [place], [address], 11/03/2023 15:25:11 11/02/20 23 11/03/2023 GC CHLAM YDIA URINE AMPLI FIED RNA [facility] GC result NEGATI VE negati ve ELECT ALEXY DAN D BY FABIAN HOWARD: Sourc e:URI NE A first catch urine speci men is accep table for detec tion of Gonor marilyn and Chlam ydia, but might detec t up to 10% fewer infec tions when sabrina red with vagin al and endoc ervic al swab sampl es. Test perfo rmed or refer red by [facility] [address], [place] [address] Not Available [facility] [address] [facility], [place], [address], 11/03/2023 15:25:11 11/02/20 23 11/03/2023 .HEP B SURF AB [place] hbs antibody, S NEGATI VE Patie nt is presu med to be not immun e to infec tion with HBV. ----- ----- ----- ----R EFERE NCE VALUE ----- ----- ----- ----- ----- - Unvac cinat ed: Negat rona Vacci nated : Posit rona Not Available [facility] [address] [facility], [place], [address], 11/04/2023 07:44:19 11/02/20 23 11/03/2023 .HEP B SURF AB [place] hbs antibody,felicita ntitative, S <5.0 mIU/m L ----- ----- ----- ----R EFERE NCE VALUE ----- ----- ----- ----- ----- - Unvac cinat ed: <5.0 Vacci nated : >=12. 0 Test Perfo rmed by: [facility] [place] [address], [place] [address] Lab Direc tor: Edgar Gabriel Ph.D. ; CLIA# [id number] Not Available [facility] [address] [facility], [place], [address], 11/04/2023 07:44:19 11/02/20 23 11/05/2023 SYPHI LIS TOTAL AB REFLE X [place] syphilis IgG w/ reflex,EIA, S NONREA CTIVE nonrea ctive No serol ogic evide nce of infec tion with T. palli dum (syph ilis) . Repea t testi ng may be consi dered in patie nts with suspe cted acute or prima ry syphi lis in 2-4 weeks . For addit ional infor luis miguel akers on inter preta tion of the syphi lis rever se algor ithm and chary ts, see: https ://mikala w.march [employer]addie[employer] DotBlu / it-mm files /Syph ilis_ Serol ogy_A lgori thm.p df Test Perfo rmed by: [facility] [place] [address] [place] [address] Lab Direc tor: Edgar Gabriel Ph.D. ; CLIA# [id number] Not Available [facility] [address] [facility], [place], [address], 11/05/2023 16:33:01 11/02/20 23 11/05/2023 SYPHI LIS TOTAL AB REFLE X [place] send to ic NO Not Available [facility] [address] [facility], [place], [address], 11/05/2023 16:33:01 11/02/20 23 11/02/2023 pregn marielle test, urine HCG negati ve Not Available [address], [place], [address], 11/02/2023 12:37:06 11/14/19 24 11/16/2023 GC CHLAM YDIA URINE AMPLI FIED RNA [facility] chlamydia result NEGATI VE negati ve Not Available [facility] [address] [facility], [place], [address], 11/16/2023 15:03:31 11/14/19 24 11/16/2023 GC CHLAM YDIA URINE AMPLI FIED RNA [facility] GC result NEGATI VE negati ve ELECT ALEXY DAN D BY KELLEY ANTHONY Y: Sourc e:URI NE A first catch urine speci men is accep table for detec tion of Gonor marilyn and Chlam ydia, but might detec t up to 10% fewer infec tions when sabrina red with vagin al and endoc ervic al swab sampl es. Test perfo rmed or refer red by [facility] [address] [facility] [place] [address] Not Available [facility] [address] [place], [address], 11/16/2023 15:03:31 11/14/19 24 11/16/2023 GC CHLAM YDIA URINE AMPLI FIED RNA [facility] send to ic NO Not Available [facility] [address] [place], [address], 11/16/2023 15:03:31 11/14/19 24 11/14/2023 pregn marielle test, urine HCG negati ve Not Available [address], [address], 11/14/2023 16:38:52 11/14/19 24 11/14/2023 urina lysis , dipst ick Leukocytes Negati ve Not Available [address], [address], 11/14/2023 16:38:43 11/14/19 24 11/14/2023 urina lysis , dipst ick Nitrite negati ve Not Available [address], [address], 11/14/2023 16:38:43 11/14/19 24 11/14/2023 urina lysis , dipst ick Urobilinogen .2 Not Available [address], [address], 11/14/2023 16:38:43 11/14/19 24 11/14/2023 urina lysis , dipst ick Protein Trace Not Available [address], [address], 11/14/2023 16:38:43 11/14/19 24 11/14/2023 urina lysis , dipst ick pH 5.5 Not Available [address], [address], 11/14/2023 16:38:43 11/14/19 24 11/14/2023 urina lysis , dipst ick Blood Negati ve Not Available [address], [address], 11/14/2023 16:38:43 11/14/19 24 11/14/2023 urina lysis , dipst ick Specific [place] 1.030 Not Available [address], [address], 11/14/2023 16:38:43 11/14/19 24 11/14/2023 urina lysis , dipst ick Ketone Trace Not Available [address], [address], 11/14/2023 16:38:43 11/14/19 24 11/14/2023 urina lysis , dipst ick Bilirubin Small Not Available [address], [address], 11/14/2023 16:38:43 11/14/19 24 11/14/2023 urina lysis , dipst ick Glucose Negati ve Not Available [address], [address], 11/14/2023 16:38:43 11/14/19 24 11/14/2023 urina lysis , dipst ick Appearance Slight ly Cloudy Not Available [address], [address], 11/14/2023 16:38:43 11/14/19 24 11/14/2023 urina lysis , dipst ick Color Dark Yellow Not Available [address], [address], 11/14/2023 16:38:43 11/22/19 24 11/24/2023 VAGIN ITIS PANEL [facility] brenda species group SEE COMMEN TS abnormal Posit rona A negat rona resul t does not precl ude a possi ble infec tion becau se resul ts are depen dent on adequ ate speci men colle ction . Test resul ts may be affec diego by impro per speci men colle ction , techn ical error , or targe t level s below the assay limit of detec tion. All Vagin itis Panel RNA NAAT testi ng is perfo rmed at [facility] using Holog ic Aptim a Assay s on the Panth er Syste m. Not Available [facility] [address] [place], [address], 11/24/2023 09:23:35 11/22/19 24 11/24/2023 VAGIN ITIS PANEL [facility] brenda glabrata SEE COMMEN TS abnormal Negat rona Not Available [facility] [address] [place], [address], 11/24/2023 09:23:35 11/22/19 24 11/24/2023 VAGIN ITIS PANEL [facility] bacterial vaginosis POSITI VE abnormal Not Available [facility] [address] [place], [address], 11/24/2023 09:23:35 11/22/19 24 11/24/2023 VAGIN ITIS PANEL [facility] trichomonas vaginalis SEE COMMEN TS abnormal Negat rona Test Perfo rmed by: [place] [facility] [address], [place] [address] Medic al Direc tor: Edgar castillo M.D. Not Available [facility] [address] [facility], [place], [address], 11/24/2023 09:23:35 11/24/19 24 11/24/2023 PPD (palomo fied prote in deriv ative ), skin test TB negati ve Not Available [address], [address], 11/22/2023 14:16:00 11/24/19 24 11/24/2023 PPD (palomo fied prote in deriv ative ), skin test Induration 0 Not Available [address], [address], 11/22/2023 14:16:00 Result Notes None recorded. Problems Name Problem SNOMED Code Status Onset Date Resolution Date Notes Provider Name and Address Organization Details Recorded Time Acute bronchitis with bronchospasm 53371897 Active 2022 Mabel Roach APRN [address] [place] [address], [place], [address], [facility] 3 11:47:56 Acute left otitis media 320630752 Active 2022 Fabian Horton [address] [place], [address], [facility] 3 12:53:53 Chlamydial infection 784101862 Active 2022 Fabian Horton [address] [place], [address], [facility] 3 08:12:23 Candidiasis of vagina 46761549 Active 2023 TRACY Gordon [address] [place] [address], [place], [address], [facility] 4 15:37:19 Problem Notes None recorded. Procedures Surgical History Date Name Laterality Status Provider Name and Address Organization Details Recorded Time 3 Nebulizer tx completed Mabel Roach APRN [address] [place] [address], [address], [facility] 08/23/2023 11:46:57 Imaging Results None recorded. Procedure Notes None recorded. Medical Equipment None Reported. Allergies No known drug allergies Medications Name Sig Start Date Stop Date Status Note LastModified by Organization Details LastModified Time tuberculin PPD 5 tub. unit/0.1 mL intradermal injection solution Inject 0.1 mL by intraderm al route. 2023 active Not Available Not Available Not Avai lable ipratropium 0.5 mg-albutero l 3 mg (2.5 mg base)/3 mL nebulizatio n soln Inhale 3 mL 4 times a day by nebulizat ion route. 11/02 completed Not Available Not Available Not Available fluconazole 150 mg tablet Take 1 tablet every 72 hours by oral route as directed for 9 days. 2023 active Not Available Not Available Not Avai lable valacyclovi r 1 gram tablet Take 1 tablet every 12 hours by oral route for 10 days. 08/23 completed Not Available Not Available Not Available dexamethaso ne 6 mg tablet Take 1 tablet every day by oral route for 5 days, for wheezing. 11/02 completed Not Available Not Available Not Available metronidazo le 500 mg tablet Take 1 tablet every 12 hours by oral route for 7 days. 2023 active Not Available Not Available Not Avai lable hydroxyzine HCl 50 mg tablet TAKE 2 TABLETS BY MOUTH EVERY DAY AT BEDTIME 11/02 completed Not Available Not Available Not Available amoxicillin 875 mg tablet Take 1 tablet twice a day by oral route for 5 days, for ear infection . 11/14 completed Not Available Not Available Not Available amlodipine 10 mg tablet Take 1 tablet every day by oral route. 11/02 completed Not Available Not Available Not Available hydrochloro thiazide 25 mg tablet TAKE 1 TABLET BY MOUTH DAILY 11/02 completed Not Available Not Available Not Available albuterol sulfate HFA 90 mcg/actuati on aerosol inhaler Inhale 2 puffs every 4 hours by inhalatio n route as needed. 11/02 completed Not Available Not Available Not Available metformin ER 500 mg tablet,exte nded release 24 hr TAKE 1 TABLET BY MOUTH TWICE DAILY WITH FOOD 11/02 completed Not Available Not Available Not Available doxycycline hyclate 100 mg tablet Take 1 tablet twice a day by oral route for 7 days. 11/22 completed Not Available Not Available Not Available duloxetine 30 mg capsule,del ayed release TAKE 3 CAPSULES BY MOUTH DAILY AT 5PM 11/02 completed Not Available Not Available Not Available duloxetine 60 mg capsule,del ayed release TAKE 1 CAPSULE BY MOUTH EVERY DAY IN THE EVENING 11/02 completed Not Available Not Available Not Available lidocaine 5 % topical ointment APPLY TOPICALLY TO THE AFFECTED AREA 1 TO 4 TIMES DAILY NEEDED 11/02 completed Not Available Not Available Not Available Latuda 60 mg tablet Take 1 tablet every day by oral route. 08/23 completed Not Available Not Available Not Available Rexulti 1 mg tablet TAKE 1 TABLET BY MOUTH EVERY DAY 11/02 completed Not Available Not Available Not Available Rexulti 2 mg tablet TAKE 1 TABLET BY MOUTH EVERY DAY 11/02 completed Not Available Not Available Not Available Vitals Date Recorded Heart rate Oxygen saturation Oxygen saturation in Arterial blood by Pulse oximetry Respiratory rate Systolic And Diastolic Provider Name and Address Organization Details Last Updated DateTime 4 89 /min 96 % 96 % 18 /min 135/93 mm[Hg] RONY DIAS [facility] 4 16:21:54 Date Recorded Body temperature Oxygen saturation Oxygen saturation in Arterial blood by Pulse oximetry Heart rate Systolic And Diastolic Provider Name and Address Organization Details Last Updated DateTime 4 98 [degF] 99 % 99 % 84 /min 150/105 mm[Hg] Ed Wayne [facility] 4 13:58:24 Date Recorded Body weight Heart rate Oxygen saturation Oxygen saturation in Arterial blood by Pulse oximetry Body temperature Respiratory rate Systolic And Diastolic Provider Name and Address Organization Details Last Updated DateTime 3 242579. 08 g 96 /min 97 % 97 % 97.7 [degF] 20 /min 125/85 mm[Hg] Phyllis Ayoub MANAGER [employer] [facility] 3 11:00:44 Date Recorded Body weight Body temperature Oxygen saturation Oxygen saturation in Arterial blood by Pulse oximetry Heart rate Respiratory rate Systolic And Diastolic Provider Name and Address Organization Details Last Updated DateTime 3 758207. 74 g 98.3 [degF] 98 % 98 % 87 /min 18 /min 147/98 mm[Hg] LINCOLN MCKINLEY CMA [facility] 3 12:35:42 Social History Question Answer Notes LastModified by CloudCheckr Details LastModified Time Tobacco Smoking Status Current Every Day Smoker Phyllis Ayoub [employer]NA[employer] [facility] 08/23/2023 10:55:07 Which Illicit Or Recreational Drugs Have You Used? Marijuana [email or web address] Information not available 08/23/2023 What Was The Date Of Your Most Recent Tobacco Screening? 11/14/2023 [email or web address] Information not available 11/14/2023 Have You Ever Been Counseled For Unhealthy Alcohol Use? No [email or web address] Information not available 08/23/2023 How Much Tobacco Do You Smoke? 1 PPD Information not available 08/23/2023 Sex: Unknown Functional Status Question Answer Note LastModified by CloudCheckr Details LastModified Time Do you use any illicit or recreational drugs? Yes rarely [email or web address] Information not available 08/23/2023 What is your level of alcohol consumption? Occasional [email or web address] Information not available 08/23/2023 Mental Status None recorded. Family History Nothing Reported. Medical History No medical history recorded. Gynecological HistoryNo gynecological history recorded. Obstetrics History GPAL:G 0 P 0 0 0 0 Past Encounters Encounter ID Performer Location Encounter Start Date Encounter Closed Date Diagnosis/Indication Diagnosis SNOMED-CT Code Diagnosis ICD10 Code Diagnosis IMO Codes Diagnosis Note [id number] BERNADINE Abdullahi [address] [address] 07/13/2023 09:14:58 07/13/2023 10:05:23 Lesion of genitalia 863944301 N94.9 [id number] Mabel Roach APRN [address] [address] 08/23/2023 09:38:31 08/24/2023 12:38:38 Exposure to SARS-CoV-2 228054947 Z20.822 Acute bron chitis with bronchospasm 92712519 J20.9 Negative covid and flu today- Suspect RSV or other viral etiology with acute bronchitis improvemen t in air movemetn and marked decrease in expiratory wheezing with duoneb in clinic today.Sent albuterol HFA, spacer and dexamethas one to the pharmacy- advised on treatment. Return if things are worsening in any way. Aware that the viral illnesss still has to take it's course, but these methods should support her breathing and reduce bronchial inflammati on. [id number] TRACY Banegas [address] [address] 11/02/2023 12:20:47 11/02/2023 13:11:22 Irregular periods 86314775 N92.6 Acute left otitis media 360735053 H66.92 Venereal d isease screening 030545155 Z11.3 [id number] BERNADINE Mcdaniel [address] [address] 11/14/2023 16:08:56 11/14/2023 17:04:10 Chlamydial infection 962657653 A74.9 Discussed safe sex practices and importance of abstaining until completely treated. Will Rx doxy while awaiting results given high suspicion. [id number] TRACY Gordon [address] [address] 11/22/2023 13:36:31 11/22/2023 18:01:47 Candidiasis of vagina 30620133 B37.31 April is a 28 year old female who was recently treated with abx on 11/14/23. She has since finished this but now believes she has a yeast infection. She would also like a TB test done as she needs it for workpt denies pelvic or abdominal pain, no fevers.not ed increased vaginal itching and discharge. no urinary symptoms.p t with normal examself swab for vagex.will empiricall y treat.RTC as needed. Tuberculos is screening 527968987 Z11.1 [id number] Sergio Estrada MD [address] [place] [address] 11/24/2023 14:46:55 11/27/2023 12:12:12 Tuberculosis screening 395160952 Z11.1 Health Concerns Section Related Observation LastModified by Organization Detai ls LastModified Time None Recorded Concern Status LastModified by Organization Details LastModified Time None Recorded Advance Directives Directive None Recorded Payers Insurance Date Sequence Insurance Name Policy Number Policy [place] Covered Member ID Dos [place] Member ID Guarantor Name 11/30/2023 1 [facility] () Skylacandeabiel Beba Davis [id number] April Davis Notes Date Note Type Note Provider Name and Address Organization Details Recorded Time 08/23/2023 text/html Children had RSV last week unsure if caught children's RSV or goddaughter cold Hard to breathunable to catch her breathdiarrheasore throatear hurtsnausea/vomitingcol d chillssymptoms: 4 dayscoughing Provider note: 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 She has not transferred her medical records yet- she used to be on flovent daily and have an albuterol inhaler also.She has not used them in a long time. She has come down with whatever her kids have - she thinks- which was RSV. Mabel Roach, TISHA [address] [place] [address], [address], [facility] 08/23/2023 12:08:22 11/02/2023 text/html 28 year old female patient presents today with a possible bilateral ear infection. Symptoms started 2 days ago. Also her period is 5 days late so she would like a test. She would also like to be tested for STD's because she has a new partner. TRACY Banegas [address] [place] [address], [address], [facility] 11/02/2023 13:04:24 11/14/2023 text/html April presents in the office with cold symptoms and STD testingShe tested positive for chlamydia on 11/02, treated with 7 day course of doxycycline, but she has been sleeping with her partner even though she and he knew she was positive and not finished antibiotics, she is having vaginal irritation and discharge which is what symptoms she was originally having and now her partner is starting to have symptoms also.Says her period was late and abnormal, 10 days late and only had it for 2 days very heavily. YOAV SIDDIQUI null, [facility] 11/14/2023 16:47:49 11/22/2023 text/html April is a 28 year old female who was recently treated with abx on 11/14/23. She has since finished this but now believes she has a yeast infection. She would also like a TB test done as she needs it for work TRACY Gordon [address] [place] [address], [place], [id number], [facility] 11/22/2023 15:37:49 11/24/2023 text/html PPD readneg result0 indurationno redness/irritation noted KATELYN OCAMPO RN null, [facility] 11/27/2023 12:12:11 OBGyn Episode No OBEpisode recorded.
== END 2025-09-11 14:20 | disposition home or self-care (01) ==
PROVIDERS: PCP Family Medicine; Visit Provider Physician Assistant
DX: N92.6 Irregular menstruation, unspecified (principal); Z32.02 Encounter for pregnancy test, result negative

== ENCOUNTER 2025-09-11 12:43 | Outpatient (REF) | payer OTHER, SELFPAY ==
[2025-09-12 01:02] LABS: Bacterial Vaginosis PCR NEGATIVE (Negative); Candida Group PCR NOT DETECTED (Not Detect); Candida glab krusei PCR NOT DETECTED (Not Detect); Trichomonas vaginalis PCR NOT DETECTED (Not Detect)
[2025-09-12 01:03] LABS: CT PCR Urine NOT DETECTED (Not Detect.); NG PCR Urine NOT DETECTED (Not Detect.)
== END 2025-09-11 12:44 | disposition home or self-care (01) ==
LOC: HO.LAB 12:43
PROVIDERS: PCP Family Medicine; Visit Provider Physician Assistant
DX: N92.6 Irregular menstruation, unspecified (principal); Z32.02 Encounter for pregnancy test, result negative; Z20.2 Contact with and (suspected) exposure to infections with a predominantly sexual mode of transmission
CPT/HCPCS: 81025; 81515; 87491; 87591; 99212